=== PATIENT | male | born 1935 | race Caucasian/White ===

== ENCOUNTER 2017-07-17 06:50 | Inpatient (IN) ==
[2017-07-17] MEDS ORDERED: Isovue-370 500 ML INFUS..BTL IV ONE (07:17)
[2017-07-17 07:37] LABS: Basophils # 0.1 K/mcL (0.0-0.2); Basophils % 0.8 %; Eosinophils # 0.4 K/mcL (0.0-0.6); Eosinophils % 4.4 %; Hematocrit 39.3 % (37.5-50.1); Hemoglobin 13.9 g/dL (12.9-16.9); Immature Granulocytes % 0.5 % (0-4); Lymphocytes # 2.3 K/mcL (0.6-4.6); Lymphocytes % 28.7 %; Mean Corpuscular HGB Conc 35.4 g/dL (31.6-35.5); Mean Corpuscular Hemoglobin 30.7 pg (28.0-33.3); Mean Corpuscular Volume 86.8 fL (83.0-100.0); Mean Platelet Volume 10.8 fL (9.4-12.4); Monocytes # 0.6 K/mcL (0.0-1.3); Monocytes % 7.6 %; Neutrophils # 4.6 K/mcL (1.6-8.9); Platelet Count 187 K/mcL (140-400); Red Blood Count 4.53 M/mcL (4.19-5.50); Red Cell Distribution Width 12.3 % (11.5-14.5)
[2017-07-17 07:42] LABS: INR 1.1; Prothrombin Time 11.5 Seconds (9.4-12.1)
[2017-07-17 07:45] LABS: Activated Partial Thrombo Time 31.8 Seconds (26.0-36.0)
[2017-07-17 07:58] LABS: BUN/Creatinine Ratio 28 (6-26); Blood Urea Nitrogen 30 mg/dL (8-23); Calcium 9.2 mg/dL (8.6-10.3); Carbon Dioxide 27 mEq/L (23-29); Chloride 103 mEq/L (98-107); Glucose 104 mg/dL (70-105); Osmolality,Calculated 292 (280-300); Potassium 3.3 mEq/L (3.5-5.1); Sodium 138 mEq/L (136-145); eGFR For African Americans > 60 (> 60); eGFR For Non-African Americans > 60 (> 60)
[2017-07-17 08:50] LABS: Troponin I < 0.03 ng/mL (< 0.04)
--- NOTE | 2017-07-17 09:00 | Emergency Department Note ---
Disposition Clinical Impression: Slurred speech, Weakness, Unsteady gait Disposition: Admitted As Inpatient Condition: Fair Forms: ED Satisfaction Letter Time of Disposition: 10:38 Neuro HPI - General Chief Complaint: ED Neuro Symptoms/Deficit Stated Complaint: stroke like sx (onset 2199 last night) Time Seen by Provider: 07/17/17 07:15 Source: patient, EMS Mode of arrival: EMS Limitations: no limitations Nursing Notes Reviewed: Yes Vital Signs Reviewed: Yes - History of Present Illness HPI Narrative: Patient presents to the emergency room by EMS for evaluation possible strokelike symptoms. Onset of the symptoms would last night at approximate 9 PM. The patient noticed worsening slurred speech and feeling like he was unsteady. Patient did not want to come into the emergency room last night surgical the medical squad. This morning he woke up he fell he slurred speech was better but he still was uncomfortable. Family finally convinced him to come into the emergency room for evaluation. Patient is currently denying any chest pain shortness of breath headache vision changes nausea vomiting or diarrhea denies any recent fevers or chills. Currently he denies any new medications or falls or trauma. Patient is alert is oriented she answers questions appropriately. Patient does have noticeable slurred speech. Patient is not a candidate at this time for pharmacologic intervention for strokelike symptoms. Because of his history of previous stroke that affected similar patient will have CT angiography as well of the head and neck. Patient labs included CBC chemistry troponin and BNP. Type and screen also be added on. Patient does not have any acute findings on stroke evaluation except for slurred speech. NIH is low. Family says he is acting appropriately. Patient will require admission at the workup is completed for further treatment course and evaluation. Aspirin will be given here after the CT scan of the head is unremarkable. Physical exam is stable this time lungs are clear heart is regular. Abdomen is soft. Patient has no signs of cerebellar dysfunction or ataxia based on [id number] testing and [id number] testing. Patient follow commands and is appropriate at this time. Family agrees with my evaluation disposition pending the full treatment course Location: speech History of same: Yes Severity: mild Quality: weakness Improves with: none Worsens with: none Context: sudden onset On Anticoagulants: No Associated symptoms: Reports: denies other symptoms Treatments Prior to Arrival: none - Related Data Home Medications: Home Medications Medication Instructions Recorded Confirmed Ascorbic Acid [Vitamin C] 500 mg PO DAILY 03/09/16 03/09/16 Aspirin 325 mg PO DAILY 03/09/16 03/09/16 Ketoconazole 2% CRM [Nizoral Cream] 1 appl TP BID 03/09/16 03/09/16 Losartan/Hydrochlorothiazide 1 each PO DAILY 03/09/16 03/09/16 [Hyzaar 100-25 Tablet] NIFEdipine [Afeditab Cr] 120 mg PO DAILY 03/09/16 03/09/16 [place]-3/Dha/Epa/Fish Oil [Fish Oil 1,000 mg PO DAILY 03/09/16 03/09/16 1,000 mg Softgel] cloNIDine HCl [CloNIDine HCl] 0.15 mg PO HS 03/09/16 03/09/16 Allergies/Adverse Reactions: Allergies Allergy/AdvReac Type Severity Reaction Status Date / Time sertraline AdvReac Unknown Verified 03/09/16 18:49 All systems ED: reviewed and negative except as stated. Review of Systems: As Per HPI Constitutional: Denies: fever, chills, weakness Eyes: Denies: eye pain Cardiovascular: Denies: chest pain, palpitations, dyspnea on exertion, orthopnea , syncope Respiratory: Denies: cough, dyspnea, wheezes Gastrointestinal: Denies: abdominal pain, nausea, vomiting, diarrhea Genitourinary: Denies: dysuria, frequency Musculoskeletal: Denies: back pain, neck pain Integumentary: Denies: rash Neurological: Denies: headache, weakness Endocrine: Denies: fatigue Past Medical History - Past Medical History Attestation: Yes The following information was validated with the patient. Source: patient, obtained from family Medical history: Reports: cancer, CVA, hypertension, other Surgical history: Reports: no surgical history Psychiatric history: Reports: anxiety, depression - Social History Smoking Status: Never smoker Smokeless Tobacco Status: Yes Alcohol use: Reports: none Drug use: Reports: none Physical Exam - General Limitations: no limitations General appearance: alert, in no apparent distress - Head Head exam: atraumatic - Eye Eye exam: Present: normal appearance, PERRL, EOMI. Absent: miosis, mydriasis - ENT ENT exam: normal exam, normal oropharynx - Neck Neck exam: Present: normal inspection, full ROM, trachea midline. Absent: tenderness, meningismus, lymphadenopathy - Chest Chest inspection: Present: normal inspection, symmetric chest wall rise. Absent : tenderness - Respiratory Respiratory exam: Present: normal lung sounds bilaterally. Absent: respiratory distress, wheezes - Cardiovascular Cardiovascular exam: Present: regular rate, normal rhythm, normal heart sounds. Absent: bradycardia, tachycardia - Abdominal Exam Abdominal exam: Present: soft, Non-Tender. Absent: tenderness, distention, guarding, rebound, rigidity, normal bowel sounds, Jimenez's sign, Rovsing's sign , tenderness at McBurney's Point - Extremities Exam Extremities exam: Present: normal inspection - Back Exam Back exam: Present: normal inspection, full ROM. Absent: tenderness - Neurological Exam Neurological exam: Present: alert, oriented X3, CN II-XII intact - Skin Skin exam: Present: warm, dry, intact, normal color Course Course Narrative: Patient seen and examined the time of arrival. See history of present illness. Patient presents emergency room for complaint of slurred speech and some difficulty with walking. He said this happened in the past of previous stroke. Patient had some slight residual symptoms that were left over in the past. Patient denies any trauma or injury. Symptom onset was last night approximately 9 PM. He decided not to come out to the emergency room will undergo bedside regarding better. Patient's currently denying chest pain shortness of breath headache vision changes nausea vomiting or diarrhea. No fevers or chills. No recent medication changes. No other acute new issues at this time. On my initial evaluation patient sitting upright in the bed. He does have audible slurred speech to this time. He does not have any facial asymmetry. His pupils are equal round reactive his intraocular muscles are intact. He has normal cranial nerve function 3 through 12 with no acute asymmetry noted. He has normal strength in the upper and lower extremities is symmetrical in flexion extension and shoulder shrug as well as extension and lifting of the legs bilaterally. Cerebellar function appears to be stable. There is slight dysmetria in the left upper extremity with the patient does miss his nose finger to nose testing. Timeframe was not consistent with acute stroke does not meet the patient candidate for TPA at this time. Patient will have CT imaging with plain film as well as CT angiography of the head and neck completed this time. Detailed lab workup including CBC chemistry coagulation studies urinalysis chest x-ray will be completed as well as for infectious etiology or other sources to the presenting symptoms here today. Patient's NIH stroke scale is a 2 at this time. Vital signs remain stable. Patient will have detailed workup completed here and then expect admission process to be established. No other acute findings on this time. Patient is otherwise clinically stable. - Reevaluation(s) Reevaluation #1: Unremarkable this point. Patient is resting comfortably in the bed. Repeat evaluation shows no acute changes. CT of the head and CT angiography of the head and neck are unremarkable this time for any vascular related issue or bleed. Patient will be given aspirin here in the emergency room. Hospitals will be paged for admission process. Patient was discussed with the hospitalist Dr. black. We reviewed the presentation the symptoms medical intervention in the previous history of this patient this time. She understands is comfortable with the plan. No other recommendations at this point. Patient will be admitted for definitive management. Patient is otherwise clinically stable. Medication list will be added into the chart at this time. Time: 10:49 Vital Signs Temperature 97.9 F 07/17/17 06:52 Pulse Rate 66 07/17/17 06:52 Respiratory Rate 18 07/17/17 06:52 Blood Pressure 157/114 07/17/17 06:52 O2 Sat by Pulse Oximetry 99 07/17/17 06:52 Temperature 97.9 F 07/17/17 07:31 Pulse Rate 56 07/17/17 10:03 Respiratory Rate 11 07/17/17 10:03 Blood Pressure 150/96 07/17/17 10:03 O2 Sat by Pulse Oximetry 95 07/17/17 10:03 Oxygen Delivery Oxygen Delivery Room Air Neuro Symptoms/Deficit - MDM Narrative Medical decision making narrative: Slurred speech, weakness - Medical Records Medical records reviewed: Yes I reviewed the patient's medical records. - Lab Data Lab results reviewed: Yes I reviewed the patient's lab results. Result diagrams: 07/17/17 07:16 07/17/17 07:16 Lab Results 07/17/17 07/17/17 07/17/17 Range/Units 07:12 07:16 07:16 WBC 7.9 (4.3-11.1) K/mcL RBC 4.53 (4.19-5.50) M/mcL Hgb 13.9 (12.9-16.9) g/dL Hct 39.3 (37.5-50.1) % MCV 86.8 (83.0-100.0) fL MCH 30.7 (28.0-33.3) pg MCHC 35.4 (31.6-35.5) g/dL RDW 12.3 (11.5-14.5) % Plt Count 187 (140-400) K/mcL MPV 10.8 (9.4-12.4) fL Immature Gran % 0.5 (0-4) % Seg Neutrophils % 58.0 % Lymphocytes % 28.7 % Monocytes % 7.6 % Eosinophils % 4.4 % Basophils % 0.8 % Neutrophils # 4.6 (1.6-8.9) K/mcL Lymphocytes # 2.3 (0.6-4.6) K/mcL Monocytes # 0.6 (0.0-1.3) K/mcL Eosinophils # 0.4 (0.0-0.6) K/mcL Basophils # 0.1 (0.0-0.2) K/mcL PT 11.5 (9.4-12.1) Seconds INR 1.1 APTT 31.8 (26.0-36.0) Seconds Sodium (136-145) mEq/L Potassium (3.5-5.1) mEq/L Chloride (98-107) mEq/L Carbon Dioxide (23-29) mEq/L BUN (8-23) mg/dL Creatinine (0.70-1.30) mg/dL Est GFR ( Amer) (> 60) Est GFR (Non-Af Amer) (> 60) BUN/Creatinine Ratio (6-26) Glucose (70-105) mg/dL POC Glucose 105 H (70-99) mg/dL Calculated Osmolality (280-300) Calcium (8.6-10.3) mg/dL Troponin I (< 0.04) ng/mL Urine Color (Yellow) Urine Clarity (Clear) Urine pH (5.0-8.0) pH Units Ur Specific [place] (1.010-1.025) Urine Protein (Neg-Trace) mg/dL Urine Glucose (UA) (Normal) mg/dL Urine Ketones (Negative) mg/dL Urine Blood (Negative) Urine Nitrite (Negative) Urine Bilirubin (Negative) Urine Urobilinogen (Normal) mg/dL Ur Leukocyte Esterase (Negative) Urine Microscopic RBC (0-3) per hpf Urine Microscopic WBC (0-3) per hpf Ur Squamous Epith Cells (None-Few) per lpf Urine Bacteria (None-Few) per hpf Hyaline Casts (None-Few) per lpf Ur Culture Indicated? (NO) 07/17/17 07/17/17 07/17/17 Range/Units 07:16 07:52 09:12 WBC (4.3-11.1) K/mcL RBC (4.19-5.50) M/mcL Hgb (12.9-16.9) g/dL Hct (37.5-50.1) % MCV (83.0-100.0) fL MCH (28.0-33.3) pg MCHC (31.6-35.5) g/dL RDW (11.5-14.5) % Plt Count (140-400) K/mcL MPV (9.4-12.4) fL Immature Gran % (0-4) % Seg Neutrophils % % Lymphocytes % % Monocytes % % Eosinophils % % Basophils % % Neutrophils # (1.6-8.9) K/mcL Lymphocytes # (0.6-4.6) K/mcL Monocytes # (0.0-1.3) K/mcL Eosinophils # (0.0-0.6) K/mcL Basophils # (0.0-0.2) K/mcL PT (9.4-12.1) Seconds INR APTT (26.0-36.0) Seconds Sodium 138 (136-145) mEq/L Potassium 3.3 L (3.5-5.1) mEq/L Chloride 103 (98-107) mEq/L Carbon Dioxide 27 (23-29) mEq/L BUN 30 H (8-23) mg/dL Creatinine 1.08 (0.70-1.30) mg/dL Est GFR ( Amer) > 60 (> 60) Est GFR (Non-Af Amer) > 60 (> 60) BUN/Creatinine Ratio 28 H (6-26) Glucose 104 (70-105) mg/dL POC Glucose 104 H (70-99) mg/dL Calculated Osmolality 292 (280-300) Calcium 9.2 (8.6-10.3) mg/dL Troponin I < 0.03 (< 0.04) ng/mL Urine Color Yellow (Yellow) Urine Clarity Clear (Clear) Urine pH 7.0 (5.0-8.0) pH Units Ur Specific [place] 1.025 (1.010-1.025) Urine Protein Trace (Neg-Trace) mg/dL Urine Glucose (UA) Normal (Normal) mg/dL Urine Ketones Negative (Negative) mg/dL Urine Blood Negative (Negative) Urine Nitrite Negative (Negative) Urine Bilirubin Negative (Negative) Urine Urobilinogen Normal (Normal) mg/dL Ur Leukocyte Esterase Negative (Negative) Urine Microscopic RBC 0-3 (0-3) per hpf Urine Microscopic WBC 0-3 (0-3) per hpf Ur Squamous Epith Cells None Seen (None-Few) per lpf Urine Bacteria None Seen (None-Few) per hpf Hyaline Casts None Seen (None-Few) per lpf Ur Culture Indicated? NO (NO) - Radiology Data Radiology results reviewed: Yes I reviewed the patient's radiology results. CT imaging of the head is unremarkable this time. Chest x-ray is stable. No acute pathology. - EKG Data EKG attestation: Yes I reviewed and interpreted this EKG. EKG results narrative: EKG shows sinus rhythm. Ventricular rate of 67. NV interval 166. QRS duration of 100. QTC of 436. [place] appears to be normal. No acute signs of WPW Brugada syndrome atrial fibrillation or myocardial infarction at this time. Compared to EKG on 03/09/16 NIH Stroke Scale - Level of Consciousness LOC: Alert - LOC Questions LOC Questions: Answers both correctly - LOC Commands LOC Commands: Performs both correctly - Best Gaze Best Gaze: Normal - Visual Visual: No visual loss - Facial Palsy Facial Palsy: Normal - Motor Arms Motor Arm-Left: No drift for 10 seconds Motor Arm-Right: No drift for 10 seconds - Motor Legs Motor Leg-Left: No drift for 5 seconds Motor Leg-Right: No drift for 5 seconds - Limb Ataxia Limb Ataxia: Present in ONE limb - Sensory Sensory: Normal - Best Language Best Language: No aphasia - Dysarthria Dysarthria: Mild, slurs some words - Extinction and Inattention Extinction and Inattention: Normal - NIHSS Total Score NIHSS Total Score: 2 TPA Checklist - LKW: 3-4.5 hrs Add. Warnings/Precautions Patient/family understanding: The patient/family members have been counseled and understood the risk, benefit , and alternatives of treatment.
[2017-07-17 09:22] LABS: Bilirubin,Urine Negative (Negative); Blood,Urine Negative (Negative); Clarity,Urine Clear (Clear); Color,Urine Yellow (Yellow); Glucose,Urine (UA) Normal (Normal); Ketones,Urine Negative (Negative); Leukocyte Esterase,Urine Negative (Negative); Nitrite,Urine Negative (Negative); Protein,Urine Trace mg/dL (Neg-Trace); Specific Gravity,Urine 1.025 (1.010-1.025); Urobilinogen,Urine Normal (Normal)
[2017-07-17 09:25] LABS: Bacteria,Urine None Seen per hpf (None-Few); Hyaline Casts,Urine None Seen per lpf (None-Few); RBC,Urine 0-3 per hpf (0-3); Squamous Epithelial Cell,Urine None Seen per lpf (None-Few); WBC,Urine 0-3 per hpf (0-3)
[2017-07-17] MEDS: 0.9 % Sodium Chloride 1,000 ML IVC SCH ×2 (09:44→17:37)
[2017-07-17] MEDS ORDERED: Aspirin 81 MG TAB.CHEW PO STA (10:30)
[2017-07-17] MEDS ORDERED: Naloxone 0.4 MG/ML INJ IVP PRN (11:20)
[2017-07-17] MEDS ORDERED: Potassium Chloride 20 MEQ, Lidocaine 1% 2 ML in D5% in Water 250 ML IVPB ONE (11:25)
[2017-07-17] MEDS ORDERED: Gadolinium Contrast Agent (WT Based) IV PRN (11:26)
--- NOTE | 2017-07-17 12:14 | Internal Med History&Physical ---
Date of Encounter: 07/17/17 Time of Encounter: 10:45 Internal Medicine - H&P: HPI Chief complaint: slurred speech Admitted From: Home Plans for Post Hospital Care: Home History of present illness: Mr. Evans is a 81 year old male with PMH Of HTN, CVA, brain aneurysm s/p surgery who presents to the ER for evaluation of slurred speech. Pt seen and examined with family present at bedside. Pt reports of having an acute onset of slurred speech last night however refused to come to the ER then, his symptoms persisted which prompted his visit to the ER today. He states he has had difficulty walking from his previous CVA and uses a walker, however his speech is clear but slow at baseline. At this time, he is able to converse, has occasional stuttering but is close to his baseline, as per the patient and family. He also reports of having difficulty with thin liquids and CTA neck reported mild esophagus wall thickening. He denies any dysphagia to solids. Denies any headache, dizziness, chest pain, sob, vision changes, abd pain, n/v, fever, or chills. Past Med Surg Social Fam HX - Past Medical History Medical history: cancer, CVA, hypertension, other Psychiatric history: anxiety, depression - Past Surgical History Surgical History: no surgical history - Social History Smoking Status: Never smoker Smokeless Tobacco Status: Yes Alcohol use: none Drug use: none - Family History Brother Hx Family Cardiac Disorders: Yes Father Living Status: Hx Family Cancer: Yes (colon) Mother Living Status: Internal Medicine - H&P: Meds Ascorbic Acid [Vitamin C] 500 mg PO DAILY 03/09/16 [History] Aspirin 325 mg PO DAILY 03/09/16 [History] Losartan/Hydrochlorothiazide [Hyzaar 100-25 Tablet] 1 each PO DAILY 03/09/16 [ History] NIFEdipine [Afeditab Cr] 120 mg PO DAILY 03/09/16 [History] cloNIDine HCl [CloNIDine HCl] 0.15 mg PO HS 03/09/16 [History] Atorvastatin [Lipitor] 10 mg PO HS 07/17/17 [History] Tamsulosin [Flomax] 0.4 mg PO DAILY 07/17/17 [History] 3 Allergy/AdvReac Type Severity Reaction Status Date / Time sertraline AdvReac Unknown Verified 03/09/16 18:49 All Systems PM: A 10-system review of systems was performed and is negative for pertinent findings except as documented above in the HPI. - Constitutional Constitutional: as per HPI, no falls - Constitutional Vitals: Temp Pulse Resp BP Pulse Ox 97.9 F 66 14 166/109 99 07/17/17 07:31 07/17/17 11:10 07/17/17 11:10 07/17/17 11:10 07/17/17 11:10 General appearance: Present: cooperative, A&O X 3, pleasant, no acute distress, answers questions appropriately - Head Head exam: Present: atraumatic, normocephalic - Eye Eye exam: Present: EOMI, normal appearance. Absent: nystagmus - Respiratory Respiratory exam: Present: CTAB. Absent: accessory muscle use, rales, rhonchi, wheezes - Cardiovascular Cardiovascular exam: Present: RRR, +S1, +S2. Absent: diastolic murmur, gallop, rubs, systolic murmur - GI/Abdominal GI/Abdominal exam: Present: normal bowel sounds, soft, no peritoneal signs. Absent: distended, tenderness - Extremities Exam Extremities exam: Present: warm, radial pulses palpable and symmetrical. Absent : calf tenderness, pedal edema - Neurological Exam Neurological exam: Present: alert, oriented X3, strengths equal and symetr throughout, speech deficit. 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 Sequelae of prior infarcts within the cerebellar hemispheres bilaterally. Mild narrowing of the left TRAY DELIVERY AIDE. mild esophageal wall thickening. Neurology consult requested with Dr. Cifuentes continue ASA, Statin BP control f/u 2D echo, carotid dopplers PT/OT speech therapy evaluation tele monitoring will continue to closely monitor fall precautions Qualifiers: CVA mechanism: unspecified Qualified Code(s): I63.9 - Cerebral infarction, unspecified (2) Hypokalemia Current Visit: Yes Status: Acute Assessment and plan: K supplemented continue to monitor electrolytes and replace as needed (3) Hypertension Current Visit: No Status: Chronic Assessment and plan: Reports of not taking his home medications prior to his hospitalization will resume home meds Hydralazine 10mg IV q6h PRN SBP>160 goal BP<150/90 closely monitor BP Qualifiers: Hypertension type: essential hypertension Qualified Code(s): I10 - Essential (primary) hypertension (4) Dysphagia Current Visit: Yes Status: Acute Assessment and plan: dysphagia to liquids follow up speech therapy evaluation consider GI evaluation for endoscopy Qualifiers: Dysphagia type: unspecified Qualified Code(s): R13.10 - Dysphagia, unspecified (5) DVT prophylaxis Current Visit: Yes Status: Acute Assessment and plan: heparin SQ - Time Spent With Patient Total time spent is greater than 50% in coordination of care (as documented) at patient's floor/unit and/or counseling patient:
[2017-07-17] MEDS: Losartan/HCTZ 50-12.5 TABLET PO SCH (12:15)
[2017-07-17] MEDS: NIFEdipine XL (24 HR) 60 MG TAB.ER.24 PO SCH (12:15)
--- NOTE | 2017-07-17 16:50 | Neurology - Consult Note ---
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 Baseline function unknown and current neurological examination showed left hemiparesis consistent with previous SDH injury. To rule out new ischemic infarct an MRI of brain without contrast is needed which is already ordered. Keep on Aspirin 325mg for now and if MRI of brain returns positive for new infarct then may add on Plavix continue statin therapy. Risk factor reduction modification. PT and speech evaluation. patient has quite significant intracranial atherosclerosis evidenced on CTA of brain these are not intervenable and would have to go medical treatment route. Already had CTA of neck will need TTE to complete work up. Qualifiers: CVA mechanism: unspecified Qualified Code(s): I63.9 - Cerebral infarction, unspecified History of Present Illness Chief complaint: slurred speech HPI: Mr. Evans is a 81 year old male with PMH significant for HTN, CVA, brain aneurysm s/p surgery who presented to the ER here at [facility]. Patient is a poor historian due to speech difficulty and likely he also has cognitive impairment due to history of craniotomy and brain bleed. He denies any specific discomforts. He tried to explain things but it usually ended up telling what made him going to [facility]. He is unable to tell me what happened yesterday. per medical records, he was found to have slurred speech, which can still be recognized now. He seems to have hemiparesis to the left arm and leg but he denies acute weakness now. Medical records from [facility] showed that the patient had prostate cancer s/p radiotherapy, SDH in 02/2016 s/p craniotomy, and then he had acute ischemic stroke during 09/2017 where he was treated at [facility] and an MRI of brain showed acute small infarct at the left douglas radiata, which correlate with reported slurry speech and gait imbalance. This time apparently the slurred speech occurred again and family members were worried. Symptoms have persisted more than 24 hours without improvement therefore he was brought to ER for further evaluation. Ct of head showed no acute changes but has lots of small vessel ischemic changes as well as old infarcts. CTA of neck and brain were reported negative for major vessel stenosis or aneurysm. IMPRESSION: CT HEAD: 1. No acute intracranial abnormality. 2. Global parenchymal volume loss with chronic microvascular ischemic change. 3. Sequelae of prior infarcts within the cerebellar hemispheres bilaterally. CTA HEAD/NECK: 1. No flow limiting stenosis seen of the cervical carotid or vertebral arteries. 2. 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 This is most severely involving the MCAs bilaterally. 3. Mild narrowing of the left posterior communicating artery. 4. A somewhat patulous appearance of the esophagus with question of mild wall thickening. Consider correlation with endoscopy. Past Med Surg Social Fam HX - Past Medical History Medical history: cancer, CVA, hypertension, other Psychiatric history: anxiety, depression - Past Surgical History Surgical History: no surgical history - Social History Smoking Status: Never smoker Smokeless Tobacco Status: Yes Alcohol use: none Drug use: none - Family History Brother Hx Family Cardiac Disorders: Yes Father Living Status: Hx Family Cancer: Yes (colon) Mother Living Status: Medications and Allergies Ascorbic Acid [Vitamin C] 500 mg PO DAILY 03/09/16 [History] Aspirin 325 mg PO DAILY 03/09/16 [History] Losartan/Hydrochlorothiazide [Hyzaar 100-25 Tablet] 1 each PO DAILY 03/09/16 [ History] NIFEdipine [Afeditab Cr] 120 mg PO DAILY 03/09/16 [History] cloNIDine HCl [CloNIDine HCl] 0.15 mg PO HS 03/09/16 [History] Atorvastatin [Lipitor] 10 mg PO HS 07/17/17 [History] Tamsulosin [Flomax] 0.4 mg PO DAILY 07/17/17 [History] 3 Allergy/AdvReac Type Severity Reaction Status Date / Time sertraline AdvReac Unknown Verified 03/09/16 18:49 All Systems: The remainder of the systems were reviewed and are negative Physical Examination - Vital Signs Vital Signs: Initial Vital Signs Temp Pulse Resp BP Pulse Ox 97.9 F 66 18 157/114 99 07/17/17 06:52 07/17/17 06:52 07/17/17 06:52 07/17/17 06:52 07/17/17 06:52 - Constitutional General appearance: comfortable, chronically ill - Neurologic Sensorimotor examination: other (Grossly intact) Motor examination - right side: 5/5: deltoids, biceps, triceps, wrist flexion, wrist extension, aircraft instrument tester, hip flexors, tibialis Anterior, quadriceps, toe extension (EHL), plantarflexion Motor examination - left side: 4/5: deltoids, biceps, triceps, wrist flexion, wrist extension, hip flexors, aircraft instrument tester, quadriceps, tibialis Anterior, toe extension (EHL), plantarflexion Detailed sensory examination: other (Grossly intact) Posture: other (None) Reflexes: Biceps: 1+, Triceps: 1+, Brachioradialis: 1+, Patella: 1+, Achilles: 1 + Mental Status Examination: awake, alert, oriented to person, oriented to place, oriented to time, follows commands appropriately, answers questions appropriately, no agnosia, no aphasia (Patient is still dysphasic, he is able to repeat with errors. Speech appear partially fluent but rampent and easily digressing), no aproxia, opens eyes to voice, makes eye contact, follows simple commands, expressive aphasia (Speech difficult to characterize and has both receptive and expressive component. unable to repeat fully), impaired memory, impaired cognition Cranial nerve examination: PERRL, EOMI, visual santa intact, corneal reflexes brisk symmetrically, sensory to face intact, mastication intact, no facial asymmetry is present, no dysarthria (Dysarthric with dysphasic component), hearing is intact symmetrically, soft palate elevates bilaterally upon phonation , gag reflex intact, flexes SCM and trapezius muscles symmetrically with full power, tongue protrudes midline, no atrophy or facial fasiculations present Cerebellar examination: no truncal ataxia (Gait not assessed), no difficulty with rapid alternating movements (Loss of dexterity bilaterally), dysarthria ( yes) Results - Laboratory Findings CBC and BMP: 07/17/17 07:16 07/17/17 07:16 Abnormal lab findings: Abnormal lab results Potassium 3.3 mEq/L (3.5-5.1) L 07/17/17 07:16 BUN 30 mg/dL (8-23) H 07/17/17 07:16 BUN/Creatinine Ratio 28 (6-26) H 07/17/17 07:16 POC Glucose 104 mg/dL (70-99) H 07/17/17 07:52 - Diagnostic Findings Additional findings: EXAMINATION: CTA OF THE HEAD WITHOUT AND WITH CONTRAST; CTA OF THE NECK; CT OF THE HEAD WITHOUT CONTRAST 07/17/2017 9:17 am: TECHNIQUE: CTA of the head/brain was performed without and with the administration of intravenous contrast. Multiplanar reformatted images are provided for review. MIP images are provided for review. Dose modulation, iterative reconstruction, and/or weight based adjustment of the mA/kV was utilized to reduce the radiation dose to as low as reasonably achievable.; CTA of the neck was performed with the administration of intravenous contrast. Multiplanar reformatted images are provided for review. MIP images are provided for review. Stenosis of the internal carotid arteries measured using NASCET criteria. Dose modulation, iterative reconstruction, and/or weight based adjustment of the mA/kV was utilized to reduce the radiation dose to as low as reasonably achievable.; CT of the head was performed without the administration of intravenous contrast. Dose modulation, iterative reconstruction, and/or weight based adjustment of the mA/kV was utilized to reduce the radiation dose to as low as reasonably achievable. Noncontrast CT of the head with reconstructed 2-D images are also provided for review. COMPARISON: Noncontrast CT head 03/09/2016. HISTORY: 1 day history of slurred speech. Initial evaluation. FINDINGS: CT HEAD: BRAIN/VENTRICLES: No acute intracranial hemorrhage or extraaxial fluid collection. Pereyra-white differentiation is maintained. No evidence of mass, mass effect or midline shift. No evidence of hydrocephalus. There are areas of hypoattenuation in the periventricular and subcortical white matter, which is nonspecific, but may represent chronic microvasvular ischemic change. There is prominence of the ventricles and sulci due to global parenchymal volume loss. Sequelae of prior infarcts within the cerebellar hemispheres bilaterally. ORBITS: The visualized portion of the orbits demonstrate no acute abnormality. SINUSES: The visualized paranasal sinuses and mastoid air cells demonstrate no acute abnormality. SOFT TISSUES/SKULL: No acute abnormality of the visualized skull or soft tissues. CTA NECK: AORTIC ARCH/ARCH VESSELS: There is a normal 3 vessel arch configuration. Atherosclerosis of the aortic arch and arch vessels. No convincing flow limiting stenosis of the innominate or subclavian arteries. CAROTID ARTERIES: No flow limiting stenosis seen of the common carotid arteries. Atherosclerosis involving the carotid bulbs and proximal internal carotid arteries bilaterally, right greater than left. VERTEBRAL ARTERIES: The vertebral arteries both arise from the subclavian arteries. There is no evidence of a flow limiting stenosis of either vertebral artery. SOFT TISSUES: Mild dependent changes are seen within the lungs bilaterally. There is a somewhat patulous appearing esophagus there is question of mild wall thickening of the esophagus. BONES: No acute osseous abnormality. CTA HEAD: ANTERIOR CIRCULATION: No focal stenosis seen of the internal carotid arteries bilaterally. An azygos A2 segment is noted. This is a normal variant. Multiple mild stenoses are seen of the A2 segment. Severe focal stenosis is seen involving the right M1 segment. There is moderate to severe focal stenosis of the left distal M1 segment. Mild scattered stenoses within the more distal branches of the MCA bilaterally. POSTERIOR CIRCULATION: There is a diminutive appearance of the basilar and vertebral arteries. The posterior cerebral arteries are predominant supplied via posterior communicating arteries, which is a normal variant. There is mild narrowing of the left posterior communicating artery. A convincing focal stenosis of the posterior cerebral arteries. No intracranial aneurysm identified. CT/CT angio head IMPRESSION: CT HEAD: 1. No acute intracranial abnormality. 2. Global parenchymal volume loss with chronic microvascular ischemic change. 3. Sequelae of prior infarcts within the cerebellar hemispheres bilaterally. CTA HEAD/NECK: 1. No flow limiting stenosis seen of the cervical carotid or vertebral arteries. 2. 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 This is most severely involving the MCAs bilaterally. 3. Mild narrowing of the left posterior communicating artery. 4. A somewhat patulous appearance of the esophagus with question of mild wall thickening. Consider correlation with endoscopy. Consult Discharge Plan - Plan [facility]errals: [facility] [Primary Care Provider] -
--- NOTE | 2017-07-17 17:00 | Electrocardiograph Report ---
[place] [id number] Test Date: 2017-07-17 Pat Name: Delvis Evans Department: 102 Room: [place] Gender: M Cinder Man: Kimberly : 1935 Requested By: Kate Sofia Order Number: [id number] Reading MD: Alondra Charlton Measurements Intervals [place] Rate: 67 P: 31 [place]: 166 QRS: 37 QRSD: 100 T: 28 QT: 421 QTc: 436 Interpretive Statements SINUS RHYTHM NONSPECIFIC ST-WAVE ABNORMALITY Electronically Signed On 07-17-2017 16:59:33 EDT by Alondra Charlton
[2017-07-17] MEDS: *HR* Heparin 5,000 UNIT/ML VIAL SQ SCH (17:37)
[2017-07-17] MEDS: cloNIDine HCl 0.1 MG TABLET PO SCH (20:34)
[2017-07-18] MEDS: *HR* Heparin 5,000 UNIT/ML VIAL SQ SCH ×2 (06:04→18:51)
[2017-07-18 06:29] LABS: Basophils # 0.1 K/mcL (0.0-0.2); Eosinophils # 0.3 K/mcL (0.0-0.6); Eosinophils % 5.1 %; Immature Granulocytes % 0.1 % (0-4); Lymphocytes # 1.9 K/mcL (0.6-4.6); Lymphocytes % 27.9 %; Mean Corpuscular HGB Conc 34.1 g/dL (31.6-35.5); Mean Corpuscular Hemoglobin 29.6 pg (28.0-33.3); Mean Platelet Volume 10.7 fL (9.4-12.4); Monocytes # 0.6 K/mcL (0.0-1.3); Monocytes % 8.2 %; Neutrophils # 3.9 K/mcL (1.6-8.9); Platelet Count 197 K/mcL (140-400); Red Blood Count 5.06 M/mcL (4.19-5.50); Red Cell Distribution Width 12.6 % (11.5-14.5); Segmented Neutrophils % 57.7 %
[2017-07-18 06:46] LABS: BUN/Creatinine Ratio 21 (6-26); Blood Urea Nitrogen 20 mg/dL (8-23); Calcium 9.4 mg/dL (8.6-10.3); Carbon Dioxide 28 mEq/L (23-29); Chloride 104 mEq/L (98-107); Chol/HDL Ratio 4.4 (0-4.9); Cholesterol 205 mg/dL (< 200); Glucose 95 mg/dL (70-105); HDL Cholesterol 47 mg/dL (40-59); LDL Cholesterol,Calculated 131 mg/dL (0-99); Osmolality,Calculated 292 (280-300); Phosphorous 2.3 mg/dL (2.7-4.5); Potassium 3.3 mEq/L (3.5-5.1); Sodium 140 mEq/L (136-145); Triglycerides 137 mg/dL (< 150); eGFR For African Americans > 60 (> 60); eGFR For Non-African Americans > 60 (> 60)
[2017-07-18] MEDS: 0.9 % Sodium Chloride 1,000 ML IVC SCH ×2 (07:14→20:44)
[2017-07-18] MEDS: NIFEdipine XL (24 HR) 60 MG TAB.ER.24 PO SCH (07:52)
[2017-07-18] MEDS: Ascorbic Acid 500 MG TABLET PO SCH (07:52)
[2017-07-18] MEDS: Losartan/HCTZ 50-12.5 TABLET PO SCH (07:52)
[2017-07-18] MEDS ORDERED: Aspirin 325 MG TABLET PO SCH (09:00)
--- NOTE | 2017-07-18 16:47 | Neurology Progress Note ---
Date of Encounter: 07/18/17 Time of Encounter: 16:44 Assessment and Plan (1) CVA (cerebral vascular accident) Current Visit: Yes Status: Acute 81 year old man with previous SDH ( spontaneous without head trauma per medical history) s/p craniotomy 02/2016, ischemic infarct at the left [place] [employer] 2016 who developed acute onset of slurry speech and left hemiparesis this time, had MRI of brain confirmed few lacunar infarct within the right MCA territory. Likely related to intracranial atherosclerosis. He has failed aspirin therefore will change antiplatelet therapy to plavix 75mg daily. He has history of spontaneous SDH in so i would avoid dual antiplatelet therapy. Risk factor reduction recommended. PT. Will sign off at this time. Please call if any questions Qualifiers: CVA mechanism: unspecified Qualified Code(s): I63.9 - Cerebral infarction, unspecified Subjective Principal diagnosis: CVA Interval history: Patient seen and examined. He is feeling fine, still has dysarthria and can recognize slight weakness to the left arm and facial droop. MRI of brain completed and showed few lacunar infarct at the right frontal and temporal lobe, within the right MCA territory. Echocardiography showed normal LVEF no regional wall motion abnormality, no PFO, and valcular disease. CTA of neck showed no critical ICA stenosis but significant atherosclerotic changes within MCA. Objective - Constitutional Vitals: Temp Pulse Resp BP Pulse Ox 98.0 F 67 14 159/84 98 07/18/17 15:43 07/18/17 15:43 07/18/17 15:43 07/18/17 15:43 07/18/17 15:43 - Neurological Exam Sensorimotor examination: Present: other (Grossly intact) Motor examination - right side: 5/5: deltoids, biceps, triceps, wrist flexion, wrist extension, battery service technician, hip flexors, tibialis Anterior, quadriceps, toe extension (EHL), plantarflexion Motor examination - left side: 4/5: deltoids, biceps, triceps, wrist flexion, wrist extension, hip flexors, battery service technician, quadriceps, tibialis Anterior, toe extension (EHL), plantarflexion Sensation intact: Present: other (Grossly intact) Posture: Present: other (None) Reflexes: Biceps: 1+, Triceps: 1+, Brachioradialis: 1+, Patella: 1+, Achilles: 1 + Mental Status Examination: Present: awake, alert, oriented to person, oriented to place, oriented to time, follows commands appropriately, answers questions appropriately, no agnosia, no aphasia (Patient is still dysphasic, he is able to repeat with errors. Speech appear partially fluent but rampent and easily digressing), no aproxia, opens eyes to voice, makes eye contact, follows simple commands, expressive aphasia (improved) Cranial nerve examination: Present: PERRL, EOMI, visual santa intact, corneal reflexes brisk symmetrically, sensory to face intact, mastication intact, no facial asymmetry is present (Mild left facial droop noted), no dysarthria ( Dysarthric with dysphasic component), hearing is intact symmetrically, soft palate elevates bilaterally upon phonation, gag reflex intact, flexes SCM and trapezius muscles symmetrically with full power, tongue protrudes midline, no atrophy or facial fasiculations present Cerebellar examination: Present: no truncal ataxia (Gait not assessed), no difficulty with rapid alternating movements (Loss of dexterity bilaterally), dysarthria (yes) Results - Laboratory Findings CBC and BMP: 07/18/17 04:00 07/18/17 04:00 Abnormal lab findings: Abnormal lab results Potassium 3.3 mEq/L (3.5-5.1) L 07/18/17 04:00 Phosphorus 2.3 mg/dL (2.7-4.5) L 07/18/17 04:00 Cholesterol 205 mg/dL (< 200) H 07/18/17 04:00 LDL Cholesterol, Calc 131 mg/dL (0-99) H 07/18/17 04:00 Consult Discharge Plan - Plan [facility]errals: [facility] [Primary Care Provider[facility] -
--- NOTE | 2017-07-18 19:13 | Internal Med Progress Note ---
Date of Encounter: 07/18/17 Time of Encounter: 10:05 - Assessment and plan (1) Hypertension Current Visit: Yes Status: Chronic Assessment and plan: Chronic. Resume home medications. Pt with mild HTN. Continue to monitor labs Hydralazine 10mg IV q6h prn SBP > 160. Qualifiers: Hypertension type: essential hypertension Qualified Code(s): I10 - Essential (primary) hypertension (2) CVA (cerebral vascular accident) Current Visit: Yes Status: Acute Assessment and plan: Patient sent from home after dysarthria noted. Patient has prior history of CVA and craniotomy in 2017. Patient with residual deficits from prior CVA, right-sided weakness. Head CT negative for intracranial abnormality. CTA of head and neck showed multiple stenoses involving anterior circulation, most severely MCAs bilaterally. Is mild narrowing of the left posterior communicating artery. Brain MRI showed acute lacunar infarcts within the right frontal lobe and right temporal lobe. Patient had modified barium swallow by speech therapy is evidence of aspiration of thin barium and nectar thick liquid ingesting a large bolus, mild to moderate amount of vallecular and piriform sinus residual, no evidence of penetration of aspiration of pureed consistency or honey thick liquid. Echocardiogram shows LVEF of 6065%, mild LV DD, mild MR, no evidence of PFO, all wall segments showed normal motion. PT has recommended patient have physical therapy at SNF. Patient is amenable. Head CTA 07/17/17 07:17 IMPRESSION: CT HEAD: 1. No acute intracranial abnormality. 2. Global parenchymal volume loss with chronic microvascular ischemic change. 3. Sequelae of prior infarcts within the cerebellar hemispheres bilaterally. CTA HEAD/NECK: 1. No flow limiting stenosis seen of the cervical carotid or vertebral arteries. 2. 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 This is most severely involving the MCAs bilaterally. 3. Mild narrowing of the left posterior communicating artery. 4. A somewhat patulous appearance of the esophagus with question of mild wall thickening. Consider correlation with endoscopy. D/ / Donny Bermudez MD / Donny Bermudez MD Interpreting Provider: Donny Bermudez MD Neck CTA 07/17/17 07:17 IMPRESSION: CT HEAD: 1. No acute intracranial abnormality. 2. Global parenchymal volume loss with chronic microvascular ischemic change. 3. Sequelae of prior infarcts within the cerebellar hemispheres bilaterally. CTA HEAD/NECK: 1. No flow limiting stenosis seen of the cervical carotid or vertebral arteries. 2. 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 This is most severely involving the MCAs bilaterally. 3. Mild narrowing of the left posterior communicating artery. 4. A somewhat patulous appearance of the esophagus with question of mild wall thickening. Consider correlation with endoscopy. D/ / Donny Bermudez MD / Donny Bermudez MD Interpreting Provider: Donny Bermudez MD Echocardiogram 07/17/17 11:23 Impressions: LVEF 60-65%. Normal LV chamber size, wall thickness and function. Mild left ventricular diastolic dysfunction. Normal right ventricular structure and function. Mild mitral regurgitation. Borderline mild pulmonary hypertension. Estimated RVSP is 36 mmHg. No evidence of PFO with agitated saline contrast. Left Ventricular Wall Motion: Rest Echo Findings All wall segments showed normal motion. Findings: Study Quality * Technically adequate exam. ECG Findings * Normal sinus rhythm. Left Ventricle * LVEF 60-65%. * Normal LV chamber size, wall thickness and function. * Mild left ventricular diastolic dysfunction. Right Ventricle * Normal right ventricular structure and function. Right Atrium * Mildly dilated right atrium. Left Atrium * Moderately dilated left atrium. Aortic Valve * Aortic valve not well visualized. * No aortic regurgitation. * No aortic stenosis. Mitral Valve * Mildly calcified mitral valve leaflets. * Mild mitral regurgitation. * No mitral stenosis. Tricuspid Valve * Normal tricuspid valve structure and function. * Trace tricuspid regurgitation. * Borderline mild pulmonary hypertension. * Estimated RVSP is 36 mmHg. * Estimated RA pressure is 5 mmHg. Pulmonic Valve * Pulmonic valve is not well visualized. * No pulmonic regurgitation. Aorta * Normally sized aortic root. Pericardium * The pericardium appears normal. IVC * Normal IVC dimensions and inspiratory collapse. Pulmonary Artery * Normal visualized portions of the main pulmonary artery. Interatrial Septum * No evidence of PFO with agitated saline contrast. Brain MRI 07/17/17 11:26 IMPRESSION: Acute lacunar infarcts within the right frontal lobe and right temporal lobe. The findings were sent to the Radiology Results Communication [facility] at 9:41 pm on 07/17/2017to be communicated to a licensed caregiver. D/ / Stepan Orozco MD / Stepan Orozco MD Interpreting Provider: Stepan Orozco MD Videofluoroscopic Swallow 07/18/17 13:39 IMPRESSION: 1. Evidence of aspiration of thin barium and nectar thick liquid when ingesting a large bolus. 2. No evidence of penetration or aspiration of puree consistency, fracture, or honey thick liquid. 3. Myri-[id number] amount of vallecular and pyriform sinus residual. Please see separate speech pathology report for full discussion of findings and recommendations. D/ / 07/18/2017 09:54:51 Tasneem Dumont MD / aisha Interpreting Provider: Tasneem Dumont MD Qualifiers: CVA mechanism: unspecified Qualified Code(s): I63.9 - Cerebral infarction, unspecified (3) Hypokalemia Current Visit: Yes Status: Acute Assessment and plan: Potassium remained unchanged after initial supplementation. We will continue to give 20 mEq by mouth twice daily. Continue to monitor labs. (4) DVT prophylaxis Current Visit: Yes Status: Acute Assessment and plan: heparin SQ every 12 hours. (5) Dysphagia Current Visit: Yes Status: Acute Assessment and plan: Plan as above for CVA. Qualifiers: Dysphagia type: unspecified Qualified Code(s): R13.10 - Dysphagia, unspecified - Time Spent With Patient Total time spent is greater than 50% in coordination of care (as documented) at patient's floor/unit and/or counseling patient: less than 15 minutes - Subjective Interval history: Pt was seen and assessed at bedside at 1005a.m. Pt is alert, awake, pleasant, oriented x 3. Pt's speech intermittently slurred/garbled. Pt is amenable to going to SNF for rehab and has decided that he wants to go to [facility] [place]. He denies n/v/d, headache, blurred vision, abd pain. - Constitutional Vitals: Temp Pulse Resp BP Pulse Ox 98.0 F 67 14 159/84 98 07/18/17 15:43 07/18/17 15:43 07/18/17 15:43 07/18/17 15:43 07/18/17 15:43 General appearance: Present: cooperative, A&O X 3, pleasant, no acute distress, answers questions appropriately - Head Head exam: Present: atraumatic, normal inspection, normocephalic - Eye Eye exam: Present: normal appearance, conjuntiva pink, sclera anicteric - Neck Neck exam general surgery: Present: normal inspection, supple, trachea midline. Absent: lymphadenopathy, tenderness - Respiratory Respiratory exam: Present: CTAB. Absent: accessory muscle use, rales, respiratory distress, rhonchi, wheezes - Cardiovascular Cardiovascular exam: Present: RRR, +S1, +S2. Absent: diastolic murmur, gallop, rubs, systolic murmur - GI/Abdominal GI/Abdominal exam: Present: normal bowel sounds, soft. Absent: distended, hepatomegaly, tenderness - Extremities Exam Extremities exam: Present: normal capillary refill, normal inspection, warm, radial pulses palpable and symmetrical. Absent: calf tenderness, cyanotic, pedal edema, tenderness - Neurological Exam Neurological exam: Present: alert, oriented X3, no focal deficits, pronater drift, facial droop, speech deficit. Absent: altered, motor sensory deficit, strengths equal and symetr throughout - Skin Skin exam: Present: dry, intact, normal color, warm. Absent: rash Internal Medicine: Result - Labs CBC & Chem 7: 07/18/17 04:00 07/18/17 04:00 Labs: Short CBC 07/18/17 Range/Units 04:00 WBC 6.7 (4.3-11.1) K/mcL Hgb 15.0 (12.9-16.9) g/dL Hct 44.0 (37.5-50.1) % Plt Count 197 (140-400) K/mcL Neutrophils # 3.9 (1.6-8.9) K/mcL BMP 07/18/17 04:00 Sodium 140 Potassium 3.3 L Chloride 104 Carbon Dioxide 28 BUN 20 Creatinine 0.95 Glucose 95 Calcium 9.4 - ABG Interpretation ABG results: PT/INR, D-dimer PT 11.5 Seconds (9.4-12.1) 07/17/17 07:16 - Impressions Impressions Echocardiogram 07/17/17 11:23 Impressions: LVEF 60-65%. Normal LV chamber size, wall thickness and function. Mild left ventricular diastolic dysfunction. Normal right ventricular structure and function. Mild mitral regurgitation. Borderline mild pulmonary hypertension. Estimated RVSP is 36 mmHg. No evidence of PFO with agitated saline contrast. Left Ventricular Wall Motion: Rest Echo Findings All wall segments showed normal motion. Findings: Study Quality * Technically adequate exam. ECG Findings * Normal sinus rhythm. Left Ventricle * LVEF 60-65%. * Normal LV chamber size, wall thickness and function. * Mild left ventricular diastolic dysfunction. Right Ventricle * Normal right ventricular structure and function. Right Atrium * Mildly dilated right atrium. Left Atrium * Moderately dilated left atrium. Aortic Valve * Aortic valve not well visualized. * No aortic regurgitation. * No aortic stenosis. Mitral Valve * Mildly calcified mitral valve leaflets. * Mild mitral regurgitation. * No mitral stenosis. Tricuspid Valve * Normal tricuspid valve structure and function. * Trace tricuspid regurgitation. * Borderline mild pulmonary hypertension. * Estimated RVSP is 36 mmHg. * Estimated RA pressure is 5 mmHg. Pulmonic Valve * Pulmonic valve is not well visualized. * No pulmonic regurgitation. Aorta * Normally sized aortic root. Pericardium * The pericardium appears normal. IVC * Normal IVC dimensions and inspiratory collapse. Pulmonary Artery * Normal visualized portions of the main pulmonary artery. Interatrial Septum * No evidence of PFO with agitated saline contrast. Brain MRI 07/17/17 11:26 IMPRESSION: Acute lacunar infarcts within the right frontal lobe and right temporal lobe. The findings were sent to the Radiology Results Communication Center at 9:41 pm on 07/17/2017to be communicated to a licensed caregiver. D/ / Stepan Orozco MD / Stepan Orozco MD Interpreting Provider: Stepan Orozco MD Videofluoroscopic Swallow 07/18/17 13:39 IMPRESSION: 1. Evidence of aspiration of thin barium and nectar thick liquid when ingesting a large bolus. 2. No evidence of penetration or aspiration of puree consistency, fracture, or honey thick liquid. 3. [id number] amount of vallecular and pyriform sinus residual. Please see separate speech pathology report for full discussion of findings and recommendations. D/ / 07/18/2017 09:54:51 Tasneem Dumont MD / aisha Interpreting Provider: Tasneem Dumont MD Consult Discharge Plan - Plan [facility]errals: [facility] [Primary Care Provider[facility] -
[2017-07-18] MEDS: cloNIDine HCl 0.1 MG TABLET PO SCH (20:47)
[2017-07-19] MEDS: 0.9 % Sodium Chloride 1,000 ML IVC SCH ×2 (00:17→05:51)
[2017-07-19] MEDS: *HR* Heparin 5,000 UNIT/ML VIAL SQ SCH ×2 (05:52→20:03)
[2017-07-19 08:06] LABS: Basophils # 0.1 K/mcL (0.0-0.2); Eosinophils # 0.3 K/mcL (0.0-0.6); Eosinophils % 4.6 %; Hematocrit 40.4 % (37.5-50.1); Hemoglobin 13.7 g/dL (12.9-16.9); Immature Granulocytes % 0.3 % (0-4); Immature Platelets 5.3 % (1.1-6.1); Lymphocytes % 27.2 %; Mean Corpuscular HGB Conc 33.9 g/dL (31.6-35.5); Mean Corpuscular Hemoglobin 29.8 pg (28.0-33.3); Mean Corpuscular Volume 87.8 fL (83.0-100.0); Mean Platelet Volume 10.9 fL (9.4-12.4); Monocytes # 0.6 K/mcL (0.0-1.3); Monocytes % 8.1 %; Neutrophils # 4.3 K/mcL (1.6-8.9); Platelet Count 188 K/mcL (140-400); Red Cell Distribution Width 12.7 % (11.5-14.5); Segmented Neutrophils % 58.8 %
[2017-07-19] MEDS: NIFEdipine XL (24 HR) 60 MG TAB.ER.24 PO SCH (09:00)
[2017-07-19] MEDS: Ascorbic Acid 500 MG TABLET PO SCH (09:01)
[2017-07-19] MEDS: Losartan/HCTZ 50-12.5 TABLET PO SCH (09:01)
[2017-07-19 10:04] LABS: BUN/Creatinine Ratio 21 (6-26); Blood Urea Nitrogen 20 mg/dL (8-23); Calcium 8.9 mg/dL (8.6-10.3); Carbon Dioxide 26 mEq/L (23-29); Chloride 109 mEq/L (98-107); Glucose 94 mg/dL (70-105); Osmolality,Calculated 292 (280-300); Potassium 3.7 mEq/L (3.5-5.1); Sodium 140 mEq/L (136-145); eGFR For African Americans > 60 (> 60); eGFR For Non-African Americans > 60 (> 60)
[2017-07-19] MEDS: cloNIDine HCl 0.1 MG TABLET PO SCH (20:01)
--- NOTE | 2017-07-19 20:01 | Internal Med Progress Note ---
Date of Encounter: 07/19/17 Time of Encounter: 10:20 - Assessment and plan (1) Hypertension Current Visit: Yes Status: Chronic Assessment and plan: Chronic. Resume home medications. Pt close to baseline today. Hydralazine 10mg IV q6h prn SBP > 160. Qualifiers: Hypertension type: essential hypertension Qualified Code(s): I10 - Essential (primary) hypertension (2) CVA (cerebral vascular accident) Current Visit: Yes Status: Acute Assessment and plan: Monitor for safety and falls. Continue inpt PT/OT PT has recommended patient have physical therapy at SNF. Patient is amenable. Continue telemetry. Continue Lipitor and Plavix. Head CTA 07/17/17 07:17 IMPRESSION: CT HEAD: 1. No acute intracranial abnormality. 2. Global parenchymal volume loss with chronic microvascular ischemic change. 3. Sequelae of prior infarcts within the cerebellar hemispheres bilaterally. CTA HEAD/NECK: 1. No flow limiting stenosis seen of the cervical carotid or vertebral arteries. 2. 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 This is most severely involving the MCAs bilaterally. 3. Mild narrowing of the left posterior communicating artery. 4. A somewhat patulous appearance of the esophagus with question of mild wall thickening. Consider correlation with endoscopy. D/ / Donny Bermudez MD / Donny Bermudez MD Interpreting Provider: Donny Bermudez MD Neck CTA 07/17/17 07:17 IMPRESSION: CT HEAD: 1. No acute intracranial abnormality. 2. Global parenchymal volume loss with chronic microvascular ischemic change. 3. Sequelae of prior infarcts within the cerebellar hemispheres bilaterally. CTA HEAD/NECK: 1. No flow limiting stenosis seen of the cervical carotid or vertebral arteries. 2. 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 This is most severely involving the MCAs bilaterally. 3. Mild narrowing of the left posterior communicating artery. 4. A somewhat patulous appearance of the esophagus with question of mild wall thickening. Consider correlation with endoscopy. D/ / Donny Bermudez MD / Donny Bermudez MD Interpreting Provider: Donny Bermudez MD Echocardiogram 07/17/17 11:23 Impressions: LVEF 60-65%. Normal LV chamber size, wall thickness and function. Mild left ventricular diastolic dysfunction. Normal right ventricular structure and function. Mild mitral regurgitation. Borderline mild pulmonary hypertension. Estimated RVSP is 36 mmHg. No evidence of PFO with agitated saline contrast. Left Ventricular Wall Motion: Rest Echo Findings All wall segments showed normal motion. Findings: Study Quality * Technically adequate exam. ECG Findings * Normal sinus rhythm. Left Ventricle * LVEF 60-65%. * Normal LV chamber size, wall thickness and function. * Mild left ventricular diastolic dysfunction. Right Ventricle * Normal right ventricular structure and function. Right Atrium * Mildly dilated right atrium. Left Atrium * Moderately dilated left atrium. Aortic Valve * Aortic valve not well visualized. * No aortic regurgitation. * No aortic stenosis. Mitral Valve * Mildly calcified mitral valve leaflets. * Mild mitral regurgitation. * No mitral stenosis. Tricuspid Valve * Normal tricuspid valve structure and function. * Trace tricuspid regurgitation. * Borderline mild pulmonary hypertension. * Estimated RVSP is 36 mmHg. * Estimated RA pressure is 5 mmHg. Pulmonic Valve * Pulmonic valve is not well visualized. * No pulmonic regurgitation. Aorta * Normally sized aortic root. Pericardium * The pericardium appears normal. IVC * Normal IVC dimensions and inspiratory collapse. Pulmonary Artery * Normal visualized portions of the main pulmonary artery. Interatrial Septum * No evidence of PFO with agitated saline contrast. Brain MRI 07/17/17 11:26 IMPRESSION: Acute lacunar infarcts within the right frontal lobe and right temporal lobe. The findings were sent to the Radiology Results Communication Center at 9:41 pm on 07/17/2017to be communicated to a licensed caregiver. D/ / Stepan Orozco MD / Stepan Orozco MD Interpreting Provider: Stepan Orzoco MD Videofluoroscopic Swallow 07/18/17 13:39 IMPRESSION: 1. Evidence of aspiration of thin barium and nectar thick liquid when ingesting a large bolus. 2. No evidence of penetration or aspiration of puree consistency, fracture, or honey thick liquid. 3. [id number] amount of vallecular and pyriform sinus residual. Please see separate speech pathology report for full discussion of findings and recommendations. D/ / 07/18/2017 09:54:51 Tasneem Dumont MD / aisha Interpreting Provider: Tasneem Dumont MD Qualifiers: CVA mechanism: unspecified Qualified Code(s): I63.9 - Cerebral infarction, unspecified (3) Hypokalemia Current Visit: Yes Status: Resolved Assessment and plan: Resolved. Continue to monitor. (4) DVT prophylaxis Current Visit: No Status: Acute Assessment and plan: heparin SQ twice a day (5) Dysphagia Current Visit: Yes Status: Acute Assessment and plan: Plan as above for CVA. Honey thick liquids, pureed diet Qualifiers: Dysphagia type: unspecified Qualified Code(s): R13.10 - Dysphagia, unspecified - Time Spent With Patient Total time spent is greater than 50% in coordination of care (as documented) at patient's floor/unit and/or counseling patient: less than 15 minutes - Subjective Interval history: Pt was seen and assessed at bedside at 1020a.m. Pt is alert, awake, pleasant, oriented x 3. I assisted pt from chair to bed, he is weak and requires assistance, his gait is steady. He denies n/v/d, headache, blurred vision, abd pain. Patient is currently waiting on approval for bedside at [facility] [place]. - Constitutional Vitals: Temp Pulse Resp BP Pulse Ox 97.6 F 79 14 147/81 98 07/19/17 15:17 07/19/17 15:17 07/19/17 15:17 07/19/17 15:17 07/19/17 15:17 General appearance: Present: cooperative, A&O X 3, pleasant, no acute distress, answers questions appropriately - Head Head exam: Present: atraumatic, normal inspection, normocephalic - Eye Eye exam: Present: normal appearance, conjuntiva pink, sclera anicteric - Neck Neck exam general surgery: Present: supple, trachea midline. Absent: lymphadenopathy - Respiratory Respiratory exam: Present: CTAB. Absent: accessory muscle use, rales, rhonchi, wheezes - Cardiovascular Cardiovascular exam: Present: RRR, +S1, +S2. Absent: diastolic murmur, gallop, rubs, systolic murmur - GI/Abdominal GI/Abdominal exam: Present: normal bowel sounds, soft, no peritoneal signs. Absent: distended, tenderness - Extremities Exam Extremities exam: Present: warm, radial pulses palpable and symmetrical. Absent : calf tenderness, cyanotic, pedal edema - Neurological Exam Neurological exam: Present: alert, oriented X3, no focal deficits, speech deficit. Absent: motor sensory deficit, pronater drift, facial droop - Skin Skin exam: Present: dry, intact, normal color, warm. Absent: rash Internal Medicine: Result - Labs CBC & Chem 7: 07/19/17 07:14 07/19/17 07:14 - ABG Interpretation ABG results: PT/INR, D-dimer PT 11.5 Seconds (9.4-12.1) 07/17/17 07:16 Consult Discharge Plan - Plan [facility]errals: [facility] [Primary Care Provider] -
[2017-07-20] MEDS: *HR* Heparin 5,000 UNIT/ML VIAL SQ SCH ×2 (05:43→17:49)
[2017-07-20] MEDS: 0.9 % Sodium Chloride 1,000 ML IVC SCH ×4 (05:45→15:13)
[2017-07-20 06:40] LABS: Basophils # 0.1 K/mcL (0.0-0.2); Basophils % 0.9 %; Eosinophils # 0.4 K/mcL (0.0-0.6); Eosinophils % 5.1 %; Hematocrit 41.4 % (37.5-50.1); Hemoglobin 14.7 g/dL (12.9-16.9); Immature Granulocytes % 0.1 % (0-4); Lymphocytes % 27.2 %; Mean Corpuscular HGB Conc 35.5 g/dL (31.6-35.5); Mean Corpuscular Hemoglobin 31.3 pg (28.0-33.3); Mean Corpuscular Volume 88.1 fL (83.0-100.0); Monocytes # 0.6 K/mcL (0.0-1.3); Monocytes % 8.3 %; Neutrophils # 4.4 K/mcL (1.6-8.9); Platelet Count 178 K/mcL (140-400); Red Cell Distribution Width 12.6 % (11.5-14.5); Segmented Neutrophils % 58.4 %
[2017-07-20 06:58] LABS: BUN/Creatinine Ratio 32 (6-26); Blood Urea Nitrogen 30 mg/dL (8-23); Calcium 9.3 mg/dL (8.6-10.3); Carbon Dioxide 24 mEq/L (23-29); Chloride 111 mEq/L (98-107); Glucose 101 mg/dL (70-105); Osmolality,Calculated 300 (280-300); Potassium 3.7 mEq/L (3.5-5.1); Sodium 142 mEq/L (136-145); eGFR For African Americans > 60 (> 60); eGFR For Non-African Americans > 60 (> 60)
[2017-07-20] MEDS: NIFEdipine XL (24 HR) 60 MG TAB.ER.24 PO SCH (10:27)
[2017-07-20] MEDS: Losartan/HCTZ 50-12.5 TABLET PO SCH (10:27)
[2017-07-20] MEDS: Ascorbic Acid 500 MG TABLET PO SCH (10:27)
--- NOTE | 2017-07-20 15:54 | Internal Med Progress Note ---
Date of Encounter: 07/20/17 Time of Encounter: 11:35 - Assessment and plan (1) Hypertension Current Visit: Yes Status: Chronic Assessment and plan: Chronic. Resume home medications. Blood pressure remains close to goal, allowing permissive hypertension status post CVA. Hydralazine 10mg IV q6h prn SBP > 160. Qualifiers: Hypertension type: essential hypertension Qualified Code(s): I10 - Essential (primary) hypertension (2) CVA (cerebral vascular accident) Current Visit: Yes Status: Acute Assessment and plan: Monitor for safety and falls. Continue inpt PT/OT while in hospital Pt will be discharged to SNF for rehab on Saturday 07/22. Continue telemetry. Continue Lipitor and Plavix. Head CTA 07/17/17 07:17 IMPRESSION: CT HEAD: 1. No acute intracranial abnormality. 2. Global parenchymal volume loss with chronic microvascular ischemic change. 3. Sequelae of prior infarcts within the cerebellar hemispheres bilaterally. CTA HEAD/NECK: 1. No flow limiting stenosis seen of the cervical carotid or vertebral arteries. 2. 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 This is most severely involving the MCAs bilaterally. 3. Mild narrowing of the left posterior communicating artery. 4. A somewhat patulous appearance of the esophagus with question of mild wall thickening. Consider correlation with endoscopy. D/ / Donny Bermudez MD / Donny Bermudez MD Interpreting Provider: Donny Bermudez MD Neck CTA 07/17/17 07:17 IMPRESSION: CT HEAD: 1. No acute intracranial abnormality. 2. Global parenchymal volume loss with chronic microvascular ischemic change. 3. Sequelae of prior infarcts within the cerebellar hemispheres bilaterally. CTA HEAD/NECK: 1. No flow limiting stenosis seen of the cervical carotid or vertebral arteries. 2. 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 This is most severely involving the MCAs bilaterally. 3. Mild narrowing of the left posterior communicating artery. 4. A somewhat patulous appearance of the esophagus with question of mild wall thickening. Consider correlation with endoscopy. D/ / Donny Bermudez MD / Donny Bermudez MD Interpreting Provider: Donny Bermudez MD Echocardiogram 07/17/17 11:23 Impressions: LVEF 60-65%. Normal LV chamber size, wall thickness and function. Mild left ventricular diastolic dysfunction. Normal right ventricular structure and function. Mild mitral regurgitation. Borderline mild pulmonary hypertension. Estimated RVSP is 36 mmHg. No evidence of PFO with agitated saline contrast. Left Ventricular Wall Motion: Rest Echo Findings All wall segments showed normal motion. Findings: Study Quality * Technically adequate exam. ECG Findings * Normal sinus rhythm. Left Ventricle * LVEF 60-65%. * Normal LV chamber size, wall thickness and function. * Mild left ventricular diastolic dysfunction. Right Ventricle * Normal right ventricular structure and function. Right Atrium * Mildly dilated right atrium. Left Atrium * Moderately dilated left atrium. Aortic Valve * Aortic valve not well visualized. * No aortic regurgitation. * No aortic stenosis. Mitral Valve * Mildly calcified mitral valve leaflets. * Mild mitral regurgitation. * No mitral stenosis. Tricuspid Valve * Normal tricuspid valve structure and function. * Trace tricuspid regurgitation. * Borderline mild pulmonary hypertension. * Estimated RVSP is 36 mmHg. * Estimated RA pressure is 5 mmHg. Pulmonic Valve * Pulmonic valve is not well visualized. * No pulmonic regurgitation. Aorta * Normally sized aortic root. Pericardium * The pericardium appears normal. IVC * Normal IVC dimensions and inspiratory collapse. Pulmonary Artery * Normal visualized portions of the main pulmonary artery. Interatrial Septum * No evidence of PFO with agitated saline contrast. Brain MRI 07/17/17 11:26 IMPRESSION: Acute lacunar infarcts within the right frontal lobe and right temporal lobe. The findings were sent to the Radiology Results Communication [facility] at 9:41 pm on 07/17/2017to be communicated to a licensed caregiver. D/ / Stepan Orozco MD / Stepan Orozco MD Interpreting Provider: Stepan Orozco MD Videofluoroscopic Swallow 07/18/17 13:39 IMPRESSION: 1. Evidence of aspiration of thin barium and nectar thick liquid when ingesting a large bolus. 2. No evidence of penetration or aspiration of puree consistency, fracture, or honey thick liquid. 3. [id number] amount of vallecular and pyriform sinus residual. Please see separate speech pathology report for full discussion of findings and recommendations. D/ / 07/18/2017 09:54:51 Tasneem Dumont MD / [email or web address] Interpreting Provider: Tasneem Dumont MD Qualifiers: CVA mechanism: unspecified Qualified Code(s): I63.9 - Cerebral infarction, unspecified (3) Dysphagia Current Visit: Yes Status: Acute Assessment and plan: Pt has been on nectar thick liquids. Primary RN reports that pt choked on jello. Chest xray to assess for aspiration was negative for aspiration pneumonia or pulmonary process. Continue prescribed diet. Chest X-Ray 07/20/17 14:04 IMPRESSION: No evidence of acute aspiration pneumonitis or pulmonary process. D/ / Garrett García MD / Garrett García MD Interpreting Provider: Garrett García MD Qualifiers: Dysphagia type: unspecified Qualified Code(s): R13.10 - Dysphagia, unspecified (4) Hypokalemia Current Visit: Yes Status: Resolved Assessment and plan: Resolved. (5) DVT prophylaxis Current Visit: Yes Status: Acute Assessment and plan: Heparin - Time Spent With Patient Total time spent is greater than 50% in coordination of care (as documented) at patient's floor/unit and/or counseling patient: less than 15 minutes - Subjective Interval history: Pt was seen and assessed at bedside at 1135a.m. Pt is sleeping, arouses easily to verbal. Pt is pleasant and oriented x 3. He denies n/v/d, headache, blurred vision, abd pain. Patient will be able to discharge to [facility] on Saturday 07/22. - Constitutional Vitals: Temp Pulse Resp BP Pulse Ox 97.8 F 64 17 162/92 98 07/20/17 11:14 07/20/17 11:14 07/20/17 11:14 07/20/17 11:14 07/20/17 11:14 General appearance: Present: cooperative, A&O X 3, pleasant, no acute distress, answers questions appropriately - Head Head exam: Present: atraumatic, normal inspection, normocephalic - Eye Eye exam: Present: normal appearance, conjuntiva pink, sclera anicteric - Neck Neck exam general surgery: Present: supple, trachea midline. Absent: lymphadenopathy, tenderness - Respiratory Respiratory exam: Present: CTAB. Absent: accessory muscle use, rales, rhonchi, wheezes - Cardiovascular Cardiovascular exam: Present: RRR, +S1, +S2. Absent: diastolic murmur, gallop, rubs, systolic murmur - GI/Abdominal GI/Abdominal exam: Present: normal bowel sounds, soft. Absent: distended, hepatomegaly, tenderness - Extremities Exam Extremities exam: Present: normal capillary refill, normal inspection, warm, radial pulses palpable and symmetrical. Absent: calf tenderness, cyanotic, joint swelling, pedal edema, tenderness - Neurological Exam Neurological exam: Present: alert, oriented X3, no focal deficits. Absent: facial droop, speech deficit - Skin Skin exam: Present: dry, intact, normal color, warm. Absent: rash Internal Medicine: Result - Labs CBC & Chem 7: 07/20/17 05:58 07/20/17 05:58 Labs: Short CBC 07/20/17 Range/Units 05:58 WBC 7.5 (4.3-11.1) K/mcL Hgb 14.7 (12.9-16.9) g/dL Hct 41.4 (37.5-50.1) % Plt Count 178 (140-400) K/mcL Neutrophils # 4.4 (1.6-8.9) K/mcL BMP 07/20/17 05:58 Sodium 142 Potassium 3.7 Chloride 111 H Carbon Dioxide 24 BUN 30 H Creatinine 0.95 Glucose 101 Calcium 9.3 - ABG Interpretation ABG results: PT/INR, D-dimer PT 11.5 Seconds (9.4-12.1) 07/17/17 07:16 - Impressions Impressions Chest X-Ray 07/20/17 14:04 IMPRESSION: No evidence of acute aspiration pneumonitis or pulmonary process. D/ / Garrett García MD / Garrett García MD Interpreting Provider: Garrett García MD Consult Discharge Plan - Plan [facility]errals: [facility] [Primary Care Provider] -
[2017-07-20] MEDS: cloNIDine HCl 0.1 MG TABLET PO SCH (22:15)
[2017-07-21] MEDS: 0.9 % Sodium Chloride 1,000 ML IVC SCH ×3 (03:37→23:58)
[2017-07-21] MEDS: *HR* Heparin 5,000 UNIT/ML VIAL SQ SCH ×2 (05:39→17:48)
[2017-07-21 06:01] LABS: Basophils # 0.1 K/mcL (0.0-0.2); Basophils % 0.7 %; Eosinophils # 0.3 K/mcL (0.0-0.6); Hematocrit 39.8 % (37.5-50.1); Hemoglobin 13.5 g/dL (12.9-16.9); Immature Granulocytes % 0.3 % (0-4); Lymphocytes # 1.7 K/mcL (0.6-4.6); Lymphocytes % 23.5 %; Mean Corpuscular HGB Conc 33.9 g/dL (31.6-35.5); Mean Corpuscular Hemoglobin 29.7 pg (28.0-33.3); Mean Corpuscular Volume 87.5 fL (83.0-100.0); Monocytes # 0.5 K/mcL (0.0-1.3); Monocytes % 6.3 %; Neutrophils # 4.7 K/mcL (1.6-8.9); Platelet Count 174 K/mcL (140-400); Red Blood Count 4.55 M/mcL (4.19-5.50); Red Cell Distribution Width 12.7 % (11.5-14.5); Segmented Neutrophils % 65.2 %
[2017-07-21 06:18] LABS: BUN/Creatinine Ratio 33 (6-26); Blood Urea Nitrogen 29 mg/dL (8-23); Calcium 8.8 mg/dL (8.6-10.3); Carbon Dioxide 23 mEq/L (23-29); Chloride 111 mEq/L (98-107); Glucose 96 mg/dL (70-105); Osmolality,Calculated 300 (280-300); Potassium 3.8 mEq/L (3.5-5.1); Sodium 142 mEq/L (136-145); eGFR For African Americans > 60 (> 60); eGFR For Non-African Americans > 60 (> 60)
[2017-07-21] MEDS: Losartan/HCTZ 50-12.5 TABLET PO SCH (09:52)
[2017-07-21] MEDS: Ascorbic Acid 500 MG TABLET PO SCH (09:52)
[2017-07-21] MEDS: NIFEdipine XL (24 HR) 60 MG TAB.ER.24 PO SCH (09:52)
--- NOTE | 2017-07-21 15:29 | Internal Med Progress Note ---
Date of Encounter: 07/21/17 Time of Encounter: 11:25 - Assessment and plan (1) Hypertension Current Visit: Yes Status: Chronic Assessment and plan: Chronic. Resume home medications. Blood pressure remains close to goal, permissive hypertension status post CVA. Hydralazine 10mg IV prn Qualifiers: Hypertension type: essential hypertension Qualified Code(s): I10 - Essential (primary) hypertension (2) CVA (cerebral vascular accident) Current Visit: Yes Status: Acute Assessment and plan: Monitor for safety and falls. Bed alarm, up with assist. Continue inpt PT/OT while in hospital Pt will be discharged to SNF for rehab on Saturday 07/22. Continue telemetry. Continue Lipitor and Plavix. Head CTA 07/17/17 07:17 IMPRESSION: CT HEAD: 1. No acute intracranial abnormality. 2. Global parenchymal volume loss with chronic microvascular ischemic change. 3. Sequelae of prior infarcts within the cerebellar hemispheres bilaterally. CTA HEAD/NECK: 1. No flow limiting stenosis seen of the cervical carotid or vertebral arteries. 2. 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 This is most severely involving the MCAs bilaterally. 3. Mild narrowing of the left posterior communicating artery. 4. A somewhat patulous appearance of the esophagus with question of mild wall thickening. Consider correlation with endoscopy. D/ / Donny Bermudez MD / Donny Bermudez MD Interpreting Provider: Donny Bermudez MD Neck CTA 07/17/17 07:17 IMPRESSION: CT HEAD: 1. No acute intracranial abnormality. 2. Global parenchymal volume loss with chronic microvascular ischemic change. 3. Sequelae of prior infarcts within the cerebellar hemispheres bilaterally. CTA HEAD/NECK: 1. No flow limiting stenosis seen of the cervical carotid or vertebral arteries. 2. 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 This is most severely involving the MCAs bilaterally. 3. Mild narrowing of the left posterior communicating artery. 4. A somewhat patulous appearance of the esophagus with question of mild wall thickening. Consider correlation with endoscopy. D/ / Donny Bermudez MD / Donny Bermudez MD Interpreting Provider: Donny Bermudez MD Echocardiogram 07/17/17 11:23 Impressions: LVEF 60-65%. Normal LV chamber size, wall thickness and function. Mild left ventricular diastolic dysfunction. Normal right ventricular structure and function. Mild mitral regurgitation. Borderline mild pulmonary hypertension. Estimated RVSP is 36 mmHg. No evidence of PFO with agitated saline contrast. Left Ventricular Wall Motion: Rest Echo Findings All wall segments showed normal motion. Findings: Study Quality * Technically adequate exam. ECG Findings * Normal sinus rhythm. Left Ventricle * LVEF 60-65%. * Normal LV chamber size, wall thickness and function. * Mild left ventricular diastolic dysfunction. Right Ventricle * Normal right ventricular structure and function. Right Atrium * Mildly dilated right atrium. Left Atrium * Moderately dilated left atrium. Aortic Valve * Aortic valve not well visualized. * No aortic regurgitation. * No aortic stenosis. Mitral Valve * Mildly calcified mitral valve leaflets. * Mild mitral regurgitation. * No mitral stenosis. Tricuspid Valve * Normal tricuspid valve structure and function. * Trace tricuspid regurgitation. * Borderline mild pulmonary hypertension. * Estimated RVSP is 36 mmHg. * Estimated RA pressure is 5 mmHg. Pulmonic Valve * Pulmonic valve is not well visualized. * No pulmonic regurgitation. Aorta * Normally sized aortic root. Pericardium * The pericardium appears normal. IVC * Normal IVC dimensions and inspiratory collapse. Pulmonary Artery * Normal visualized portions of the main pulmonary artery. Interatrial Septum * No evidence of PFO with agitated saline contrast. Brain MRI 07/17/17 11:26 IMPRESSION: Acute lacunar infarcts within the right frontal lobe and right temporal lobe. The findings were sent to the Radiology Results Communication Center at 9:41 pm on 07/17/2017to be communicated to a licensed caregiver. D/ / Stepan Orozco MD / Stepan Orozco MD Interpreting Provider: Stepan Orozco MD Videofluoroscopic Swallow 07/18/17 13:39 IMPRESSION: 1. Evidence of aspiration of thin barium and nectar thick liquid when ingesting a large bolus. 2. No evidence of penetration or aspiration of puree consistency, fracture, or honey thick liquid. 3. [id number] amount of vallecular and pyriform sinus residual. Please see separate speech pathology report for full discussion of findings and recommendations. D/ / 07/18/2017 09:54:51 Tasneem Dumont MD / aisha Interpreting Provider: Tasneem Dumont MD Qualifiers: CVA mechanism: unspecified Qualified Code(s): I63.9 - Cerebral infarction, unspecified (3) Dysphagia Current Visit: Yes Status: Acute Assessment and plan: Pt has been on honey thick liquids. Continue prescribed diet. Chest X-Ray 07/20/17 14:04 IMPRESSION: No evidence of acute aspiration pneumonitis or pulmonary process. D/ / Garrett García MD / Garrett García MD Interpreting Provider: Garrett García MD Qualifiers: Dysphagia type: unspecified Qualified Code(s): R13.10 - Dysphagia, unspecified (4) Hypokalemia Current Visit: Yes Status: Resolved Assessment and plan: Resolved. Continue to monitor labs. (5) DVT prophylaxis Current Visit: Yes Status: Acute Assessment and plan: Heparin SQ BID - Time Spent With Patient Total time spent is greater than 50% in coordination of care (as documented) at patient's floor/unit and/or counseling patient: less than 15 minutes - Subjective Interval history: Pt was seen and assessed at bedside at 1125a.m. female family member at bedside. Questions answered. Pt is pleasant and oriented x 3. He denies n/v/d, headache, blurred vision, abd pain. He reports chronic right hip pain since childhood, denies need for pain medication and denies change in quality pain above baseline. Patient will be able to discharge to [facility] tomorrow. - Constitutional Vitals: Temp Pulse Resp BP Pulse Ox 97.8 F 79 17 167/98 95 07/21/17 10:38 07/21/17 10:38 07/21/17 10:38 07/21/17 10:38 07/21/17 10:38 General appearance: Present: cooperative, A&O X 3, pleasant, no acute distress, answers questions appropriately - Head Head exam: Present: atraumatic, normal inspection, normocephalic - Eye Eye exam: Present: PERRL, conjuntiva pink, sclera anicteric Pupils: Present: PERRL - Neck Neck exam general surgery: Present: supple, trachea midline. Absent: lymphadenopathy - Respiratory Respiratory exam: Present: CTAB. Absent: accessory muscle use, rales, rhonchi, wheezes - Cardiovascular Cardiovascular exam: Present: RRR, +S1, +S2. Absent: diastolic murmur, gallop, rubs, systolic murmur - GI/Abdominal GI/Abdominal exam: Present: normal bowel sounds, soft. Absent: distended, tenderness - Extremities Exam Extremities exam: Present: warm, radial pulses palpable and symmetrical. Absent : calf tenderness, cyanotic, pedal edema - Neurological Exam Neurological exam: Present: alert, oriented X3, no focal deficits, speech deficit. Absent: altered, facial droop - Skin Skin exam: Present: dry, intact, normal color, warm. Absent: rash Internal Medicine: Result - Labs CBC & Chem 7: 07/21/17 05:03 07/21/17 05:03 Labs: Short CBC 07/21/17 Range/Units 05:03 WBC 7.3 (4.3-11.1) K/mcL Hgb 13.5 (12.9-16.9) g/dL Hct 39.8 (37.5-50.1) % Plt Count 174 (140-400) K/mcL Neutrophils # 4.7 (1.6-8.9) K/mcL BMP 07/21/17 05:03 Sodium 142 Potassium 3.8 Chloride 111 H Carbon Dioxide 23 BUN 29 H Creatinine 0.89 Glucose 96 Calcium 8.8 - ABG Interpretation ABG results: PT/INR, D-dimer PT 11.5 Seconds (9.4-12.1) 07/17/17 07:16 - Impressions Impressions Chest X-Ray 07/20/17 14:04 IMPRESSION: No evidence of acute aspiration pneumonitis or pulmonary process. D/ / 07/20/2017 16:12:41 Garrett García MD / aisha Interpreting Provider: Garrett García MD Consult Discharge Plan - Plan [facility]errals: [facility] [Primary Care Provider] -
[2017-07-21] MEDS: cloNIDine HCl 0.1 MG TABLET PO SCH (20:54)
[2017-07-22 04:41] LABS: Basophils # 0.1 K/mcL (0.0-0.2); Basophils % 0.7 %; Eosinophils # 0.4 K/mcL (0.0-0.6); Eosinophils % 5.1 %; Hematocrit 39.2 % (37.5-50.1); Hemoglobin 13.6 g/dL (12.9-16.9); Immature Granulocytes % 0.3 % (0-4); Lymphocytes % 27.4 %; Mean Corpuscular HGB Conc 34.7 g/dL (31.6-35.5); Mean Corpuscular Hemoglobin 30.6 pg (28.0-33.3); Mean Corpuscular Volume 88.1 fL (83.0-100.0); Mean Platelet Volume 10.7 fL (9.4-12.4); Monocytes # 0.5 K/mcL (0.0-1.3); Monocytes % 6.9 %; Neutrophils # 4.3 K/mcL (1.6-8.9); Platelet Count 176 K/mcL (140-400); Red Blood Count 4.45 M/mcL (4.19-5.50); Red Cell Distribution Width 12.5 % (11.5-14.5); Segmented Neutrophils % 59.6 %
[2017-07-22 05:02] LABS: BUN/Creatinine Ratio 28 (6-26); Blood Urea Nitrogen 27 mg/dL (8-23); Calcium 9.2 mg/dL (8.6-10.3); Carbon Dioxide 27 mEq/L (23-29); Chloride 110 mEq/L (98-107); Glucose 100 mg/dL (70-105); Osmolality,Calculated 297 (280-300); Potassium 4.1 mEq/L (3.5-5.1); Sodium 141 mEq/L (136-145); eGFR For African Americans > 60 (> 60); eGFR For Non-African Americans > 60 (> 60)
[2017-07-22] MEDS: *HR* Heparin 5,000 UNIT/ML VIAL SQ SCH (06:11)
[2017-07-22] MEDS: Ascorbic Acid 500 MG TABLET PO SCH (10:04)
[2017-07-22] MEDS: Losartan/HCTZ 50-12.5 TABLET PO SCH (10:04)
[2017-07-22] MEDS: NIFEdipine XL (24 HR) 60 MG TAB.ER.24 PO SCH (10:04)
[2017-07-22 11:15] VITALS: BP 168/79
--- NOTE | 2017-07-22 11:25 | Discharge Summary ---
- NOTES TO OUTPATIENT PROVIDER Notes to Outpatient Provider: Pt was admitted for CVA. Pt will need speech therapy and ECF skilled. Orders not resulted at time of discharge: Pending orders 07/23/17 04:00 Basic Metabolic Panel AM 0400 Complete Blood Count [HEME] AM 0400 Date of Encounter: 07/22/17 Time of Encounter: 09:10 - Discharge Diagnosis (1) Hypertension Priority: Primary Status: Chronic Assessment and Plan: Chronic. Resume home medications. Blood pressure remains close to goal, permissive hypertension status post CVA. Consider adding additional medication if still hypertensive in a few days. Qualifiers: Hypertension type: essential hypertension Qualified Code(s): I10 - Essential (primary) hypertension (2) CVA (cerebral vascular accident) Priority: Secondary Status: Acute Assessment and Plan: Monitor for safety and falls. Bed alarm, up with assist. Continue PT/OT, speech at SNF. Discharge today. Continue Lipitor and Plavix. Head CTA 07/17/17 07:17 IMPRESSION: CT HEAD: 1. No acute intracranial abnormality. 2. Global parenchymal volume loss with chronic microvascular ischemic change. 3. Sequelae of prior infarcts within the cerebellar hemispheres bilaterally. CTA HEAD/NECK: 1. No flow limiting stenosis seen of the cervical carotid or vertebral arteries. 2. 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 This is most severely involving the MCAs bilaterally. 3. Mild narrowing of the left posterior communicating artery. 4. A somewhat patulous appearance of the esophagus with question of mild wall thickening. Consider correlation with endoscopy. D/ / Donny Bermudez MD / Donny Bermudez MD Interpreting Provider: Donny Bermudez MD Neck CTA 07/17/17 07:17 IMPRESSION: CT HEAD: 1. No acute intracranial abnormality. 2. Global parenchymal volume loss with chronic microvascular ischemic change. 3. Sequelae of prior infarcts within the cerebellar hemispheres bilaterally. CTA HEAD/NECK: 1. No flow limiting stenosis seen of the cervical carotid or vertebral arteries. 2. 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 This is most severely involving the MCAs bilaterally. 3. Mild narrowing of the left posterior communicating artery. 4. A somewhat patulous appearance of the esophagus with question of mild wall thickening. Consider correlation with endoscopy. D/ / Donny Bermudez MD / Donny Bermudez MD Interpreting Provider: Donny Bermudez MD Echocardiogram 07/17/17 11:23 Impressions: LVEF 60-65%. Normal LV chamber size, wall thickness and function. Mild left ventricular diastolic dysfunction. Normal right ventricular structure and function. Mild mitral regurgitation. Borderline mild pulmonary hypertension. Estimated RVSP is 36 mmHg. No evidence of PFO with agitated saline contrast. Left Ventricular Wall Motion: Rest Echo Findings All wall segments showed normal motion. Findings: Study Quality * Technically adequate exam. ECG Findings * Normal sinus rhythm. Left Ventricle * LVEF 60-65%. * Normal LV chamber size, wall thickness and function. * Mild left ventricular diastolic dysfunction. Right Ventricle * Normal right ventricular structure and function. Right Atrium * Mildly dilated right atrium. Left Atrium * Moderately dilated left atrium. Aortic Valve * Aortic valve not well visualized. * No aortic regurgitation. * No aortic stenosis. Mitral Valve * Mildly calcified mitral valve leaflets. * Mild mitral regurgitation. * No mitral stenosis. Tricuspid Valve * Normal tricuspid valve structure and function. * Trace tricuspid regurgitation. * Borderline mild pulmonary hypertension. * Estimated RVSP is 36 mmHg. * Estimated RA pressure is 5 mmHg. Pulmonic Valve * Pulmonic valve is not well visualized. * No pulmonic regurgitation. Aorta * Normally sized aortic root. Pericardium * The pericardium appears normal. IVC * Normal IVC dimensions and inspiratory collapse. Pulmonary Artery * Normal visualized portions of the main pulmonary artery. Interatrial Septum * No evidence of PFO with agitated saline contrast. Brain MRI 07/17/17 11:26 IMPRESSION: Acute lacunar infarcts within the right frontal lobe and right temporal lobe. The findings were sent to the Radiology Results Communication [facility] at 9:41 pm on 07/17/2017to be communicated to a licensed caregiver. D/ / Stepan Orozco MD / Stepan Orozco MD Interpreting Provider: Stepan Orozco MD Videofluoroscopic Swallow 07/18/17 13:39 IMPRESSION: 1. Evidence of aspiration of thin barium and nectar thick liquid when ingesting a large bolus. 2. No evidence of penetration or aspiration of puree consistency, fracture, or honey thick liquid. 3. [id number] amount of vallecular and pyriform sinus residual. Please see separate speech pathology report for full discussion of findings and recommendations. D/ / 07/18/2017 09:54:51 Tasneem Dumont MD / aisha Interpreting Provider: Tasneem Dumont MD Qualifiers: CVA mechanism: unspecified Qualified Code(s): I63.9 - Cerebral infarction, unspecified (3) Dysphagia Priority: Secondary Status: Acute Assessment and Plan: Pt has been on honey thick liquids. Honey thick liquids, regular diet. Chest X-Ray 07/20/17 14:04 IMPRESSION: No evidence of acute aspiration pneumonitis or pulmonary process. D/ / Garrett García MD / Garrett García MD Interpreting Provider: Garrett García MD Qualifiers: Dysphagia type: unspecified Qualified Code(s): R13.10 - Dysphagia, unspecified (4) Hypokalemia Priority: Secondary Status: Resolved Assessment and Plan: Resolved. (5) DVT prophylaxis Priority: Secondary Status: Acute Assessment and Plan: Heparin SQ Hospital course: Mr. Evans is a 81 year old male with PMH of urinary incontinuence, prerenal azotemia, cerebral hemorrhage with craniotomy who presented to the emergency department from home for evaluation of slurred speech search patient up to date for evaluation. Patient has prior CVA with difficulty walking and normally uses a walker and has normally slow speech at baseline, however it was slurred and different from normal. Upon presentation, patient also had dysphagia admitting having difficulty drinking thin liquids. Patient's head CT was negative, patient did have some abnormality of the esophagus with question mild wall thickening on head CT, could consider endoscopy after discharge. A CT head and neck showed no flow limiting stenosis of carotid or vertebral arteries, and multiple stenoses involving anterior circulation. Echocardiogram showed an LVEF of 66%, mild LV DD, mild MR no evidence of PFO and normal wall segment motion. Brain MRI showed acute lacunar infarcts within the right frontal lobe and right temporal lobe. Evaluated for swallow study was found to have aspiration of thin barium and nectar thick liquid. He is on a honey thickened liquid and regular diet at this time. Patient was evaluated by neurology, feel CVA is likely related intracranial atherosclerosis. He was on aspirin therapy previously and failed, we will change to Plavix 75 mg by mouth daily, and due to prior spontaneous cerebral hemorrhage in February, avoid dual antiplatelet therapy. Patient has been participating in PT and OT, will be discharged to [facility] for continued therapy. Discharge discussed with: patient, nurse - Time Spent with Patient Total time spent providing and/or coordinating discharge services: Less than 30 minutes - Discharge Medications Home Medications: Ascorbic Acid [Vitamin C] 500 mg PO DAILY 03/09/16 [History] Aspirin 325 mg PO DAILY 03/09/16 [History] Losartan/Hydrochlorothiazide [Hyzaar 100-25 Tablet] 1 each PO DAILY 03/09/16 [ History] NIFEdipine [Afeditab Cr] 120 mg PO DAILY 03/09/16 [History] cloNIDine HCl [CloNIDine HCl] 0.15 mg PO HS 03/09/16 [History] Atorvastatin [Lipitor] 10 mg PO HS 07/17/17 [History] Tamsulosin [Flomax] 0.4 mg PO DAILY 07/17/17 [History] Clopidogrel [Plavix] 75 mg PO DAILY tablet 07/22/17 [Rx] Allergies/Adverse Reactions: 3 Allergy/AdvReac Type Severity Reaction Status Date / Time sertraline AdvReac Unknown Verified 03/09/16 18:49 Date of admission: 07/19/17 08:15 [facility] care physician[facility] Discharging clinician: Sachi Tran Anticipated date of discharge: 07/22/17 - Constitutional Vitals: Temp Pulse Resp BP Pulse Ox 97.6 F 63 14 168/79 98 07/22/17 11:14 07/22/17 11:14 07/22/17 11:14 07/22/17 11:14 07/22/17 11:14 General appearance: Present: cooperative, A&O X 3, pleasant, no acute distress, answers questions appropriately - Head Head exam: Present: atraumatic, normal inspection, normocephalic - Eye Eye exam: Present: normal appearance, conjuntiva pink, sclera anicteric - Neck Neck exam general surgery: Present: supple, trachea midline. Absent: lymphadenopathy, tenderness - Respiratory Respiratory exam: Present: CTAB. Absent: accessory muscle use, chest wall tenderness, rales, respiratory distress, rhonchi, wheezes - Cardiovascular Cardiovascular exam: Present: RRR, +S1, +S2. Absent: diastolic murmur, gallop, rubs, systolic murmur - GI/Abdominal GI/Abdominal exam: Present: normal bowel sounds, soft. Absent: distended, hepatomegaly, tenderness - Extremities Exam Extremities exam: Present: normal capillary refill, normal inspection, warm, radial pulses palpable and symmetrical. Absent: calf tenderness, cyanotic, pedal edema, tenderness - Neurological Exam Neurological exam: Present: alert, oriented X3, no focal deficits, strengths equal and symetr throughout, speech deficit. Absent: facial droop - Skin Skin exam: Present: dry, intact, normal color, warm. Absent: rash - Patient Status Disposition: Transfer SNF Condition: Good Functional capacity at discharge: uses cane/walker Overall status at discharge: patient is progressing back to baseline - Discharge Instructions [facility]: [facility] [Primary Care Provider[facility] - - Diet and Activity Activity: ambulate only with your walker, as per physical therapy Diet: other
--- NOTE | 2017-07-22 11:51 | Physician Discharge Referral ---
ExtendedCare Referral Info Transfer To: [facility] Provider in Charge after Transfer: PCP Institutional Level of Care: Skilled - Diagnosis (1) Hypertension Priority: Secondary Status: Chronic (2) CVA (cerebral vascular accident) Priority: Primary Status: Acute (3) Dysphagia Priority: Secondary Status: Acute (4) Hypokalemia Priority: Secondary Status: Resolved (5) DVT prophylaxis Priority: Secondary Status: Acute Prognosis: Fair Aware of Diagnosis: Patient Aware of Prognosis: Family - Transfer Medications Home Medications: Ascorbic Acid [Vitamin C] 500 mg PO DAILY 03/09/16 [History] Aspirin 325 mg PO DAILY 03/09/16 [History] Losartan/Hydrochlorothiazide [Hyzaar 100-25 Tablet] 1 each PO DAILY 03/09/16 [ History] NIFEdipine [Afeditab Cr] 120 mg PO DAILY 03/09/16 [History] cloNIDine HCl [CloNIDine HCl] 0.15 mg PO HS 03/09/16 [History] Atorvastatin [Lipitor] 10 mg PO HS 07/17/17 [History] Tamsulosin [Flomax] 0.4 mg PO DAILY 07/17/17 [History] Clopidogrel [Plavix] 75 mg PO DAILY tablet 07/22/17 [Rx] Allergies/Adverse Reactions: 3 Allergy/AdvReac Type Severity Reaction Status Date / Time sertraline AdvReac Unknown Verified 03/09/16 18:49 - Respiratory Orders Smoking Cessation: Smoking cessation has been advised. For more information, call the [place] Tobacco Quit Line at 0-001-ZDYKNOW. - Lab Orders Lab Orders: 2 Step Mantoux Test per State regulation, CBC - Ancillary Orders May go on ALEX w/family/respon republican w/meds at nurse discretion PRN, May consult with Dentist, Fur Glosser, Field Services Director PRN - Advance Directives Code Status: Full Code - Mobility Orders Chair, Ambulate - Rehabiliation Orders Rehab Potential: Fair Rehab Orders: ROM Exercises, Evaluation for Physical Therapy, Evaluation for Occupational Therapy - Treatments Skin tear care topically daily PRN per policy, May check for fecal impaction rectally daily PRN, Fleet enema rectally every other day PRN cleansing purposes - Diet Orders Regular CERTIFICATION: I certify that the transfer of the above named patient to an Extended Care Facility is necessary for the continuing treatment of the diagnosis listed. The above information is true and accurate reflection of patient's current condition. Confidential - Redisclosure prohibited without a patient's written consent.
== END 2017-07-22 14:00 | DRG 66 ==
LOC: EMEROO 06:50 → 3BNU 06:50
PROVIDERS: ADMIT Internal Medicine; ATTEND Internal Medicine

== ENCOUNTER 2017-08-15 21:56 | Observation (INO) ==
--- NOTE | 2017-08-15 22:14 | Emergency Department Note ---
Disposition Clinical Impression: Slurred speech, Weakness, Multiple falls Head injury Qualifiers: Encounter type: initial encounter Qualified Code(s): S09.90XA - Unspecified injury of head, initial encounter Disposition: Admitted As Inpatient Condition: Fair Forms: ED Satisfaction Letter Time of Disposition: 23:33 Fall HPI - General Stated Complaint: head injury Time Seen by Provider: 08/15/17 21:59 Source: patient Mode of arrival: ambulatory Limitations: no limitations Nursing Notes Reviewed: Yes Vital Signs Reviewed: Yes - History of Present Illness HPI Narrative: Patient is an 81-year-old male who presents to [facility] ED with a chief complaint of multiple falls and head injuries. Family states he was recently discharged home from [facility] on Sunday and since then he has fallen multiple times. He still has leg weakness and has trouble getting his foot over. Denies any current headache, neck pain, chest pain, difficulty breathing, abdominal pain, problems with urination or bowel movements. Family is concerned that he had another stroke since states he had extreme slurred speech earlier today. However when asking when his last known well was, they are unsure exactly when this was. Patient does follow with the [place] neurology. Pt Subjective Complaint: fall Onset (ago): day(s) Fall Witnessed: no Place Fall Occurred: home Loss of Consciousness: none Prolonged Down Time?: no Context: tripped/slipped Location of injury: head Associated symptoms (after fall): Reports: denies. Denies: headache, neck pain , numbness, weakness, chest pain, shortness of breath, abdominal pain - Related Data Home Medications Medication Instructions Recorded Confirmed Ascorbic Acid [Vitamin C] 500 mg PO DAILY 03/09/16 07/17/17 Aspirin 325 mg PO DAILY 03/09/16 07/17/17 Losartan/Hydrochlorothiazide 1 each PO DAILY 03/09/16 07/17/17 [Hyzaar 100-25 Tablet] NIFEdipine [Afeditab Cr] 120 mg PO DAILY 03/09/16 07/17/17 cloNIDine HCl [CloNIDine HCl] 0.15 mg PO HS 03/09/16 07/17/17 Atorvastatin [Lipitor] 10 mg PO HS 07/17/17 07/17/17 Tamsulosin [Flomax] 0.4 mg PO DAILY 07/17/17 07/17/17 Previous Rx's Medication Instructions Recorded Clopidogrel [Plavix] 75 mg PO DAILY tablet 07/22/17 Allergies Allergy/AdvReac Type Severity Reaction Status Date / Time sertraline AdvReac Unknown Verified 03/09/16 18:49 All systems ED: reviewed and negative except as stated. Fall PMH - Past Medical History Medical history: Reports: cancer, CVA, hypertension, other Surgical history: Reports: no surgical history Psychiatric history: Reports: anxiety, depression - Social History Smoking Status: Never smoker Alcohol use: Reports: none Drug use: Reports: none Physical Exam - General Limitations: no limitations General appearance: alert, in no apparent distress - Head Head exam: other (Multiple contusions on the scalp) - Eye Eye exam: Present: normal appearance, PERRL, EOMI - ENT ENT exam: normal exam, normal oropharynx, mucous membranes moist - Neck Neck exam: Present: normal inspection, full ROM, trachea midline - Chest Chest inspection: Present: normal inspection, symmetric chest wall rise - Respiratory Respiratory exam: Present: normal lung sounds bilaterally - Cardiovascular Cardiovascular exam: Present: regular rate, normal rhythm, normal heart sounds - Abdominal Exam Abdominal exam: Present: soft, Non-Tender. Absent: tenderness, distention, guarding, rebound, rigidity - Extremities Exam Extremities exam: Present: normal inspection, full ROM. Absent: tenderness, pedal edema - Back Exam Back exam: Present: normal inspection, full ROM. Absent: tenderness - Neurological Exam Neurological exam: Present: alert, oriented X3 - Psychiatric Psychiatric exam: Present: normal affect, normal mood - Skin Skin exam: Present: warm, dry, intact, normal color Course Course Narrative: Patient seen and examined. Patient with multiple head injuries and multiple falls. Due to the reported history of worsening slurred speech, we will do stroke workup. NIH of 1 for slurred speech. - Reevaluation(s) Reevaluation #1: Patient will be admitted pending lab work and CT of the head. Time: 22:38 Reevaluation #2: Labwork shows mild hypokalemia. 40 mEq of oral potassium given. Will admit for his multiple falls since patient will need further rehabilitation. He may also benefit from another MRI to evaluate for further strokes. I discussed with the hospitalists Dr. Brunson who has accepted patient for admission. Patient has already had a full dose aspirin today. Time: 23:33 Vital Signs Temperature 98.4 F 08/15/17 22:32 Pulse Rate 0 08/15/17 22:32 Respiratory Rate 0 08/15/17 22:32 Blood Pressure 0/0 08/15/17 22:32 O2 Sat by Pulse Oximetry 0 08/15/17 22:32 Temperature 98.4 F 08/15/17 22:32 Pulse Rate 0 08/15/17 22:32 Respiratory Rate 0 08/15/17 22:32 Blood Pressure 0/0 08/15/17 22:32 O2 Sat by Pulse Oximetry 0 08/15/17 22:32 Oxygen Delivery Oxygen Delivery Room Air Fall - Medical Records Medical records reviewed: Yes I reviewed the patient's medical records. - Lab Data Lab results reviewed: Yes I reviewed the patient's lab results. Result diagrams: 08/15/17 22:44 08/15/17 22:44 Lab Results 08/15/17 08/15/17 08/15/17 Range/Units 22:44 22:44 22:44 WBC 8.7 (4.3-11.1) K/mcL RBC 4.23 (4.19-5.50) M/mcL Hgb 13.0 (12.9-16.9) g/dL Hct 38.1 (37.5-50.1) % MCV 90.1 (83.0-100.0) fL MCH 30.7 (28.0-33.3) pg MCHC 34.1 (31.6-35.5) g/dL RDW 12.9 (11.5-14.5) % Plt Count 192 (140-400) K/mcL MPV 10.6 (9.4-12.4) fL Immature Gran % 0.5 (0-4) % Seg Neutrophils % 61.4 % Lymphocytes % 22.0 % Monocytes % 10.9 % Eosinophils % 4.6 % Basophils % 0.6 % Neutrophils # 5.3 (1.6-8.9) K/mcL Lymphocytes # 1.9 (0.6-4.6) K/mcL Monocytes # 1.0 (0.0-1.3) K/mcL Eosinophils # 0.4 (0.0-0.6) K/mcL Basophils # 0.1 (0.0-0.2) K/mcL PT 11.5 (9.4-12.1) Seconds INR 1.1 APTT 33.1 (26.0-36.0) Seconds Sodium 139 (136-145) mEq/L Potassium 3.3 L (3.5-5.1) mEq/L Chloride 103 (98-107) mEq/L Carbon Dioxide 28 (23-29) mEq/L BUN 41 H (8-23) mg/dL Creatinine 1.25 (0.70-1.30) mg/dL Est GFR ( Amer) > 60 (> 60) Est GFR (Non-Af Amer) 55 L (> 60) BUN/Creatinine Ratio 33 H (6-26) Glucose 121 H (70-105) mg/dL Calculated Osmolality 299 (280-300) Calcium 9.6 (8.6-10.3) mg/dL Troponin I < 0.03 (< 0.04) ng/mL - Radiology Data Radiology results reviewed: Yes I reviewed the patient's radiology results. Head CT 08/15/17 22:08 IMPRESSION: Multifocal small-vessel ischemic change and multiple old infarcts No acute hemorrhage. D/ / Griffin Wray / Griffin Wray Interpreting Provider: Griffin Wray
--- NOTE | 2017-08-15 22:33 | Emergency Department Note ---
Disposition Clinical Impression: Slurred speech, Weakness, Multiple falls, Head injury Disposition: Admitted As Inpatient Condition: Fair General Adult HPI - General Chief complaint: ED Fall Stated complaint: head injury Time Seen by Provider: 08/15/17 21:59 Source: patient Mode of arrival: ambulatory Limitations: no limitations - Related Data Home Medications Medication Instructions Recorded Confirmed Ascorbic Acid [Vitamin C] 500 mg PO DAILY 03/09/16 08/16/17 Aspirin 325 mg PO DAILY 03/09/16 08/16/17 Losartan/Hydrochlorothiazide 1 each PO DAILY 03/09/16 08/16/17 [Hyzaar 100-25 Tablet] NIFEdipine [Afeditab Cr] 120 mg PO DAILY 03/09/16 08/16/17 cloNIDine HCl [CloNIDine HCl] 0.15 mg PO HS 03/09/16 08/16/17 Atorvastatin [Lipitor] 10 mg PO HS 07/17/17 08/16/17 Previous Rx's Medication Instructions Recorded Clopidogrel [Plavix] 75 mg PO DAILY tablet 07/22/17 Allergies Allergy/AdvReac Type Severity Reaction Status Date / Time sertraline AdvReac Unknown Verified 03/09/16 18:49 Past Medical History - Past Medical History Medical history: Reports: cancer, CVA, hypertension, other Surgical history: Reports: no surgical history Psychiatric history: Reports: anxiety, depression - Social History Smoking Status: Never smoker Smokeless Tobacco Status: No Alcohol use: Reports: none Drug use: Reports: none Physical Exam - General Limitations: no limitations Course Vital Signs Temperature 98.4 F 08/15/17 22:32 Pulse Rate 81 08/15/17 22:32 Respiratory Rate 17 08/15/17 22:32 Blood Pressure 141/83 08/15/17 22:32 O2 Sat by Pulse Oximetry 98 08/15/17 22:32 Temperature 98.0 F 08/17/17 11:18 Pulse Rate 65 08/17/17 11:18 Respiratory Rate 16 08/17/17 11:18 Blood Pressure 160/98 08/17/17 11:18 O2 Sat by Pulse Oximetry 98 08/17/17 11:18 Oxygen Delivery Oxygen Delivery Room Air Medical Decision Making - Lab Data Result diagrams: 08/17/17 04:27 08/17/17 04:27 Lab Results 08/15/17 08/15/17 08/15/17 Range/Units 22:44 22:44 22:44 WBC 8.7 (4.3-11.1) K/mcL RBC 4.23 (4.19-5.50) M/mcL Hgb 13.0 (12.9-16.9) g/dL Hct 38.1 (37.5-50.1) % MCV 90.1 (83.0-100.0) fL MCH 30.7 (28.0-33.3) pg MCHC 34.1 (31.6-35.5) g/dL RDW 12.9 (11.5-14.5) % Plt Count 192 (140-400) K/mcL MPV 10.6 (9.4-12.4) fL Immature Gran % 0.5 (0-4) % Seg Neutrophils % 61.4 % Lymphocytes % 22.0 % Monocytes % 10.9 % Eosinophils % 4.6 % Basophils % 0.6 % Neutrophils # 5.3 (1.6-8.9) K/mcL Lymphocytes # 1.9 (0.6-4.6) K/mcL Monocytes # 1.0 (0.0-1.3) K/mcL Eosinophils # 0.4 (0.0-0.6) K/mcL Basophils # 0.1 (0.0-0.2) K/mcL PT 11.5 (9.4-12.1) Seconds INR 1.1 APTT 33.1 (26.0-36.0) Seconds Sodium 139 (136-145) mEq/L Potassium 3.3 L (3.5-5.1) mEq/L Chloride 103 (98-107) mEq/L Carbon Dioxide 28 (23-29) mEq/L BUN 41 H (8-23) mg/dL Creatinine 1.25 (0.70-1.30) mg/dL Est GFR ( Amer) > 60 (> 60) Est GFR (Non-Af Amer) 55 L (> 60) BUN/Creatinine Ratio 33 H (6-26) Glucose 121 H (70-105) mg/dL Calculated Osmolality 299 (280-300) Calcium 9.6 (8.6-10.3) mg/dL Troponin I < 0.03 (< 0.04) ng/mL Urine Color (Yellow) Urine Clarity (Clear) Urine pH (5.0-8.0) pH Units Ur Specific [place] (1.010-1.025) Urine Protein (Neg-Trace) mg/dL Urine Glucose (UA) (Normal) mg/dL Urine Ketones (Negative) mg/dL Urine Blood (Negative) Urine Nitrite (Negative) Urine Bilirubin (Negative) Urine Urobilinogen (Normal) mg/dL Ur Leukocyte Esterase (Negative) Urine Microscopic RBC (0-3) per hpf Urine Microscopic WBC (0-3) per hpf Ur Squamous Epith Cells (None-Few) per lpf Urine Bacteria (None-Few) per hpf Hyaline Casts (None-Few) per lpf Ur Culture Indicated? (NO) 08/15/17 Range/Units 23:26 WBC (4.3-11.1) K/mcL RBC (4.19-5.50) M/mcL Hgb (12.9-16.9) g/dL Hct (37.5-50.1) % MCV (83.0-100.0) fL MCH (28.0-33.3) pg MCHC (31.6-35.5) g/dL RDW (11.5-14.5) % Plt Count (140-400) K/mcL MPV (9.4-12.4) fL Immature Gran % (0-4) % Seg Neutrophils % % Lymphocytes % % Monocytes % % Eosinophils % % Basophils % % Neutrophils # (1.6-8.9) K/mcL Lymphocytes # (0.6-4.6) K/mcL Monocytes # (0.0-1.3) K/mcL Eosinophils # (0.0-0.6) K/mcL Basophils # (0.0-0.2) K/mcL PT (9.4-12.1) Seconds INR APTT (26.0-36.0) Seconds Sodium (136-145) mEq/L Potassium (3.5-5.1) mEq/L Chloride (98-107) mEq/L Carbon Dioxide (23-29) mEq/L BUN (8-23) mg/dL Creatinine (0.70-1.30) mg/dL Est GFR ( Amer) (> 60) Est GFR (Non-Af Amer) (> 60) BUN/Creatinine Ratio (6-26) Glucose (70-105) mg/dL Calculated Osmolality (280-300) Calcium (8.6-10.3) mg/dL Troponin I (< 0.04) ng/mL Urine Color Yellow (Yellow) Urine Clarity Clear (Clear) Urine pH 6.0 (5.0-8.0) pH Units Ur Specific [place] 1.020 (1.010-1.025) Urine Protein Trace (Neg-Trace) mg/dL Urine Glucose (UA) Normal (Normal) mg/dL Urine Ketones Negative (Negative) mg/dL Urine Blood Negative (Negative) Urine Nitrite Negative (Negative) Urine Bilirubin Negative (Negative) Urine Urobilinogen Normal (Normal) mg/dL Ur Leukocyte Esterase Negative (Negative) Urine Microscopic RBC 0-3 (0-3) per hpf Urine Microscopic WBC 0-3 (0-3) per hpf Ur Squamous Epith Cells None Seen (None-Few) per lpf Urine Bacteria None Seen (None-Few) per hpf Hyaline Casts None Seen (None-Few) per lpf Ur Culture Indicated? NO (NO) Attestation Statement - Attestation Attestation: I examined this patient and my medical decision-making was reviewed with the Resident Physician. I agree with the documented findings, disposition and treatment plan as described except to the extent set forth below. Patient presents to the ED with chief complaint of weakness falls and slurred speech. Patient's family states it has been days since he has been normal. He was recently discharged from [facility] after being there for rehabilitation following another stroke. He has had multiple falls since Sunday. He is dragging his feet. Today his speech was slurred. He also has a history of a traumatic brain injury with intracranial hemorrhage. On examination she is awake alert. His speech is clear and understandable. No focal neurologic deficits. Area stroke workup. CT head. Likely admission as the patient is obviously not safe at home.
[2017-08-15 22:57] LABS: Basophils # 0.1 K/mcL (0.0-0.2); Basophils % 0.6 %; Eosinophils # 0.4 K/mcL (0.0-0.6); Eosinophils % 4.6 %; Hematocrit 38.1 % (37.5-50.1); Immature Granulocytes % 0.5 % (0-4); Lymphocytes # 1.9 K/mcL (0.6-4.6); Mean Corpuscular HGB Conc 34.1 g/dL (31.6-35.5); Mean Corpuscular Hemoglobin 30.7 pg (28.0-33.3); Mean Corpuscular Volume 90.1 fL (83.0-100.0); Mean Platelet Volume 10.6 fL (9.4-12.4); Monocytes % 10.9 %; Neutrophils # 5.3 K/mcL (1.6-8.9); Platelet Count 192 K/mcL (140-400); Red Blood Count 4.23 M/mcL (4.19-5.50); Red Cell Distribution Width 12.9 % (11.5-14.5); Segmented Neutrophils % 61.4 %
[2017-08-15 23:03] LABS: INR 1.1; Prothrombin Time 11.5 Seconds (9.4-12.1)
[2017-08-15 23:06] LABS: Activated Partial Thrombo Time 33.1 Seconds (26.0-36.0)
[2017-08-15 23:15] LABS: BUN/Creatinine Ratio 33 (6-26); Blood Urea Nitrogen 41 mg/dL (8-23); Calcium 9.6 mg/dL (8.6-10.3); Carbon Dioxide 28 mEq/L (23-29); Chloride 103 mEq/L (98-107); Glucose 121 mg/dL (70-105); Osmolality,Calculated 299 (280-300); Potassium 3.3 mEq/L (3.5-5.1); Sodium 139 mEq/L (136-145); eGFR For African Americans > 60 (> 60); eGFR For Non-African Americans 55 (> 60)
[2017-08-15 23:16] LABS: Troponin I < 0.03 ng/mL (< 0.04)
[2017-08-15 23:38] LABS: Bilirubin,Urine Negative (Negative); Blood,Urine Negative (Negative); Clarity,Urine Clear (Clear); Color,Urine Yellow (Yellow); Glucose,Urine (UA) Normal (Normal); Ketones,Urine Negative (Negative); Leukocyte Esterase,Urine Negative (Negative); Nitrite,Urine Negative (Negative); Protein,Urine Trace mg/dL (Neg-Trace); Urobilinogen,Urine Normal (Normal)
[2017-08-15 23:40] LABS: Bacteria,Urine None Seen per hpf (None-Few); Hyaline Casts,Urine None Seen per lpf (None-Few); RBC,Urine 0-3 per hpf (0-3); Squamous Epithelial Cell,Urine None Seen per lpf (None-Few); WBC,Urine 0-3 per hpf (0-3)
[2017-08-16] MEDS ORDERED: Naloxone 0.4 MG/ML INJ IVP PRN (02:09)
[2017-08-16] MEDS ORDERED: Acetaminophen 325 MG TABLET PO PRN (02:09)
[2017-08-16] MEDS ORDERED: Gadolinium Contrast Agent (WT Based) IV PRN (03:44)
--- NOTE | 2017-08-16 03:59 | Internal Med History&Physical ---
Date of Encounter: 08/16/17 Time of Encounter: 01:30 Internal Medicine - H&P: HPI Chief complaint: Slurred speech, falls at home Admitted From: Home Plans for Post Hospital Care: Transfer [facility] History of present illness: Mr. Evans is a 81 year old male Patient presented to the emergency room, after experiencing several falls at home as well as slurred speech. His family noticed that he was slurring his words and they were unable to understand him earlier today. This has now since resolved. He recently was discharged from an ECF, but he has been having falls that time. He says that he is unable to predict when they happen, whether he is in the bathroom, in the kitchen or even getting into his truck. He is aware that he should not be driving with this condition. He uses a cane to ambulate. He denies nausea, vomiting, abdominal pain and chest pain. He denies biting his tongue and he also denies seizure-like activity with these episodes. His family brought him to the emergency room because they were concerned about his slurred speech, however he is less concerned and would rather be home in his own bed. He has a history of stroke in the past and was transferred to [facility] for treatment at that time. In the emergency room a head CT showed multifocal small vessel ischemic changes, multiple old infarcts but no acute hemorrhage. He is to be admitted for further evaluation with an MRI in the morning, as well as physical therapy and occupational therapy consultations. Past Med Surg Social Fam HX - Past Medical History Medical history: cancer, CVA, hypertension, other Additional medical history: brain bleed Psychiatric history: anxiety, depression - Past Surgical History Surgical History: no surgical history Additional surgical history: brain sx. - Social History Smoking Status: Never smoker Smokeless Tobacco Status: No Alcohol use: none Drug use: none - Family History Brother Hx Family Cardiac Disorders: Yes Father Living Status: Hx Family Cardiac Disorders: Yes ([place]) Hx Family Respiratory Disorders: No Hx Family Cancer: Yes (colon) Hx Family GI Disorders: No Hx Family Genitourinary Disorders: No Hx Family Endocrine Disorder: No Hx Family Musculoskeletal Disorders: No Hx Family Neuromuscular Disorders: No Hx Family Neurologic Disorders: No Hx Family HEENT Disorders: No Hx Family Autoimmune Disorders: No Hx Family Reproductive Disorders: No Hx Family Psychosocial Disorders: No Hx Family Medical Disorders: No Mother Living Status: Hx Family Cardiac Disorders: No Hx Family Respiratory Disorders: No Hx Family Cancer: No Hx Family GI Disorders: No Hx Family Genitourinary Disorders: No Hx Family Endocrine Disorder: No Hx Family Musculoskeletal Disorders: No Hx Family Neuromuscular Disorders: No Hx Family Neurologic Disorders: No Hx Family HEENT Disorders: No Hx Family Autoimmune Disorders: No Hx Family Reproductive Disorders: No Hx Family Psychosocial Disorders: No Hx Family Medical Disorders: No Internal Medicine - H&P: Meds Ascorbic Acid [Vitamin C] 500 mg PO DAILY 03/09/16 [History] Aspirin 325 mg PO DAILY 03/09/16 [History] Losartan/Hydrochlorothiazide [Hyzaar 100-25 Tablet] 1 each PO DAILY 03/09/16 [ History] NIFEdipine [Afeditab Cr] 120 mg PO DAILY 03/09/16 [History] cloNIDine HCl [CloNIDine HCl] 0.15 mg PO HS 03/09/16 [History] Atorvastatin [Lipitor] 10 mg PO HS 07/17/17 [History] Tamsulosin [Flomax] 0.4 mg PO DAILY 07/17/17 [History] Clopidogrel [Plavix] 75 mg PO DAILY tablet 07/22/17 [Rx] 3 Allergy/AdvReac Type Severity Reaction Status Date / Time sertraline AdvReac Unknown Verified 03/09/16 18:49 All Systems PM: A 10-system review of systems was performed and is negative for pertinent findings except as documented above in the HPI. - Constitutional Vitals: Temp Pulse Resp BP Pulse Ox 98.0 F 68 16 148/93 95 08/16/17 01:41 08/16/17 01:41 08/16/17 01:41 08/16/17 01:41 08/16/17 01:41 General appearance: Present: A&O X 3, pleasant, no acute distress, answers questions appropriately - Head Head exam: Present: normal inspection Additional comments: Area of scar tissue on right side of head from previous brain surgery - Eye Eye exam: Present: EOMI, normal appearance - Neck Neck exam general surgery: Present: full ROM. Absent: tenderness - Respiratory Respiratory exam: Present: CTAB. Absent: rales, respiratory distress - Cardiovascular Cardiovascular exam: Present: RRR. Absent: diastolic murmur, systolic murmur - GI/Abdominal GI/Abdominal exam: Present: normal bowel sounds, soft. Absent: guarding - Extremities Exam Extremities exam: Present: warm, radial pulses palpable and symmetrical. Absent : calf tenderness, tenderness - Neurological Exam Neurological exam: Present: alert, CN II-XII intact, oriented X3, no focal deficits, strengths equal and symetr throughout. Absent: motor sensory deficit , pronater drift, facial droop, speech deficit - Skin Skin exam: Present: dry, normal color, warm Internal Med - H&P Results - Labs CBC & Chem 7: 08/15/17 22:44 08/15/17 22:44 - Stroke Contraindication Not Initiating IV-Tpa: Not Indicated - Symptoms Rapidly Improving - Assessment and plan (1) Slurred speech Current Visit: Yes Status: Acute Assessment and plan: Patient had slurred speech as noted by his family at home, however this is since resolved. CT of his head showed no acute hemorrhage. Patient will be admitted for observation and to get an MRI in the morning. Symptoms could be secondary to TIA versus stroke. He has had stroke in the past. MRI with and without contrast of the head in the morning Nothing by mouth until swallow safety confirmed (2) Multiple falls Current Visit: Yes Status: Acute Assessment and plan: Patient has had multiple falls at home, uses a cane to ambulate. Recently discharged from an ECF. Family is unsure about his safety, and would like possible placement in another ECF. Patient unsure what brings his falling episodes on, and they are unpredictable. These falls have been occurring for some time. Blood pressure within normal limits currently, electrolytes and kidney function also near or within normal limits. Patient is also not anemic and in physical exam he had good strength throughout. Patient takes several blood pressure medications as well as tamsulosin which could be contributing to this. The falls could also be a resulting sequela of his prior stroke. Orthostatic blood pressure checks Social work consult Physical therapy consult Occupational therapy consult Consider neurology consult. (3) History of stroke Current Visit: Yes Status: Acute Assessment and plan: Patient has a history of stroke in the past, treated at [facility]. Will resume medication when he is no longer nothing by mouth. Continue atorvastatin Continue Plavix Continue aspirin (4) BPH (benign prostatic hyperplasia) Current Visit: Yes Status: Acute Assessment and plan: Patient takes tamsulosin, which can lead to hypotension and weakness. Could be related to his frequent falls at home. Reevaluate restarting this medication at time of discharge. Qualifiers: Qualified Code(s): N40.1 - Benign prostatic hyperplasia with lower urinary tract symptoms (5) Hypertension Current Visit: No Status: Chronic Assessment and plan: Patient has history of hypertension, takes clonidine, nifedipine as well as Hyzaar. Low blood pressure from taking these medications can also lead to falls. Reevaluate restarting these medications at time of discharge. Qualifiers: Hypertension type: essential hypertension Qualified Code(s): I10 - Essential (primary) hypertension - Time Spent With Patient Total time spent is greater than 50% in coordination of care (as documented) at patient's floor/unit and/or counseling patient: Greater than 35 minutes
[2017-08-16 06:25] LABS: Hematocrit 38.8 % (37.5-50.1); Hemoglobin 13.3 g/dL (12.9-16.9); Mean Corpuscular HGB Conc 34.3 g/dL (31.6-35.5); Mean Corpuscular Hemoglobin 30.9 pg (28.0-33.3); Mean Corpuscular Volume 90.2 fL (83.0-100.0); Mean Platelet Volume 11.4 fL (9.4-12.4); Platelet Count 181 K/mcL (140-400)
[2017-08-16 06:44] LABS: BUN/Creatinine Ratio 32 (6-26); Blood Urea Nitrogen 35 mg/dL (8-23); Calcium 9.3 mg/dL (8.6-10.3); Carbon Dioxide 30 mEq/L (23-29); Chloride 104 mEq/L (98-107); Glucose 86 mg/dL (70-105); Osmolality,Calculated 297 (280-300); Potassium 3.5 mEq/L (3.5-5.1); Sodium 140 mEq/L (136-145); eGFR For African Americans > 60 (> 60); eGFR For Non-African Americans > 60 (> 60)
[2017-08-16] MEDS ORDERED: Aspirin 325 MG TABLET PO SCH (11:30)
--- NOTE | 2017-08-16 11:38 | Event Note ---
Date of Encounter: 08/16/17 Time of Encounter: 11:00 Patient was seen earlier this a.m. by hospitalist. Olivier patient is alert and appropriate neurologically he has been intact MRI did show new tiny foci of acute ischemia within both temporal lobes more prominent on the right. He is on Plavix and statin at this time. PTOT has very patient recommending rehabilitation. By replace speech recommending soft chopped diet. I did discuss the case with Dr. Alonso who will see the patient upon consult
--- NOTE | 2017-08-16 14:51 | Neurology - Consult Note ---
<Chris Lennon - Last Filed: 08/16/17 15:46> Date of Encounter: 08/16/17 Time of Encounter: 02:30 Assessment and Plan (1) Slurred speech Current Visit: Yes Status: Acute Resolved. Patient reports he intermittently has this symptom. Based on CTA findings patient likely is very perfusion dependent. MRI does show new areas of ischemia along with many old strokes. PT/OT consults ordered recommending rehab after discharge. Recommendation: permissive hypertension Continue ASA, Plavix, Lipitor Increase Lipitor to 40mg if tolerated. 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 (2) Multiple falls Current Visit: Yes Status: Acute Possibly related to poor perfusion. 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 Consider checking orthostatics. Falls sound mechanical in nature based on patient's descriptions. PT/OT on board recommendations appreciated. (3) History of stroke Current Visit: Yes Status: Acute Patient with multiple old strokes. (4) Personal history of epidural hemorrhage Current Visit: Yes Status: Resolved Patient had an epidural hematoma in [facility] of 2017 requiring transfer to [facility] and placement of karen hole. History of Present Illness HPI: Mr. Evans is a 81 year old male c PMHx of cancer, multiple CVA, hypertension , extra axial hematoma 03/24/16, presented to the [facility] for concerns of slurred speech and multiple falls since being discharged from [facility]. Patient reports he's had intermittent slurred speech. Denies current slurred speech. He reports he has had mutliple falls since coming home from SNF. Patient denies loc , prodrome, dizziness prior to falls. Reports falls are mechanical in nature. Patient reports generalized weakness, but symmetric, denies focal or one sided weakness. He denies numbness or tingling, changes in vision. MRI Showed: "New tiny foci of acute ischemia within both temporal lobes more prominent on the right. Stable focus of subacute ischemia within the deep white matter of the right frontal lobe. Old left temporal lobe infarct. Old bilateral cerebellar infarcts more numerous on the left. Severe chronic small vessel ischemic disease within the periventricular white matter and basal ganglia." CTA head neck from 07/17/17 showed: "No flow limiting stenosis seen of the cervical carotid or vertebral arteries. 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 This is most severely involving the MCAs bilaterally. Mild narrowing of the left posterior communicating artery." Barium Swallow today: "No evidence of aspiration. Flash transient penetration seen only with large sips of thin barium from a cup." Speech cleared for thin liquids. Past Med Surg Social Fam HX - Past Medical History Medical history: cancer, CVA, hypertension, other Additional medical history: brain bleed Psychiatric history: anxiety, depression - Past Surgical History Surgical History: no surgical history Additional surgical history: brain sx. - Social History Smoking Status: Never smoker Smokeless Tobacco Status: No Alcohol use: none Drug use: none - Family History Brother Hx Family Cardiac Disorders: Yes Father Living Status: Hx Family Cardiac Disorders: Yes ([place]) Hx Family Respiratory Disorders: No Hx Family Cancer: Yes (colon) Hx Family GI Disorders: No Hx Family Genitourinary Disorders: No Hx Family Endocrine Disorder: No Hx Family Musculoskeletal Disorders: No Hx Family Neuromuscular Disorders: No Hx Family Neurologic Disorders: No Hx Family HEENT Disorders: No Hx Family Autoimmune Disorders: No Hx Family Reproductive Disorders: No Hx Family Psychosocial Disorders: No Hx Family Medical Disorders: No Mother Living Status: Hx Family Cardiac Disorders: No Hx Family Respiratory Disorders: No Hx Family Cancer: No Hx Family GI Disorders: No Hx Family Genitourinary Disorders: No Hx Family Endocrine Disorder: No Hx Family Musculoskeletal Disorders: No Hx Family Neuromuscular Disorders: No Hx Family Neurologic Disorders: No Hx Family HEENT Disorders: No Hx Family Autoimmune Disorders: No Hx Family Reproductive Disorders: No Hx Family Psychosocial Disorders: No Hx Family Medical Disorders: No Medications and Allergies Ascorbic Acid [Vitamin C] 500 mg PO DAILY 03/09/16 [History] Aspirin 325 mg PO DAILY 03/09/16 [History] Losartan/Hydrochlorothiazide [Hyzaar 100-25 Tablet] 1 each PO DAILY 03/09/16 [ History] NIFEdipine [Afeditab Cr] 120 mg PO DAILY 03/09/16 [History] cloNIDine HCl [CloNIDine HCl] 0.15 mg PO HS 03/09/16 [History] Atorvastatin [Lipitor] 10 mg PO HS 07/17/17 [History] Clopidogrel [Plavix] 75 mg PO DAILY tablet 07/22/17 [Rx] 3 Allergy/AdvReac Type Severity Reaction Status Date / Time sertraline AdvReac Unknown Verified 03/09/16 18:49 All Systems: Except where noted in the HPI the remainder of the systems were reviewed and are negative Physical Examination - Vital Signs Vital Signs: Initial Vital Signs Temp Pulse Resp BP Pulse Ox 98.4 F 81 17 141/83 98 08/15/17 22:32 08/15/17 22:32 08/15/17 22:32 08/15/17 22:32 08/15/17 22:32 - Constitutional General appearance: comfortable - Neurologic Detailed motor examination: grossly full strength in all extremities, full strength in all major muscle groups Motor examination - right side: 4/5: hip flexors, tibialis Anterior, quadriceps , toe extension (EHL), plantarflexion, 5/5: deltoids, biceps, triceps, wrist flexion, wrist extension, online project manager Motor examination - left side: 4/5: hip flexors, quadriceps, tibialis Anterior, toe extension (EHL), plantarflexion, 5/5: deltoids, biceps, triceps, wrist flexion, wrist extension, online project manager Detailed sensory examination: intact, light touch Reflexes: Biceps: 2+ Mental Status Examination: awake, alert, oriented to person, oriented to place, oriented to time, follows commands appropriately, answers questions appropriately, no agnosia, no aphasia, no aproxia Cranial nerve examination: PERRL (pupil sluggish but equal bilateral), EOMI, visual santa intact, sensory to face intact, mastication intact, no facial asymmetry is present, no dysarthria, hearing is intact symmetrically, soft palate elevates bilaterally upon phonation, flexes SCM and trapezius muscles symmetrically with full power, tongue protrudes midline, no atrophy or facial fasiculations present Cerebellar examination: no dysmetria, performs finger to nose and heel to thomas symmetrically without ataxia, no difficulty with rapid alternating movements Results - Laboratory Findings CBC and BMP: 08/16/17 05:17 08/16/17 05:17 Abnormal lab findings: Abnormal lab results Carbon Dioxide 30 mEq/L (23-29) H 08/16/17 05:17 BUN 35 mg/dL (8-23) H 08/16/17 05:17 BUN/Creatinine Ratio 32 (6-26) H 08/16/17 05:17 Consult Discharge Plan - Plan [facility] Provider[facility] - <Darion Alonso I - Last Filed: 08/16/17 16:30> Date of Encounter: 08/16/17 Assessment and Plan (1) Slurred speech Current Visit: Yes Status: Acute Pt was seen and examined, my medical decision was reviewed with the Resident Physician, I agree with the documented findings, disposition and treatment plas as described except to the extent set forth below Patient recently had a stroke when he was admitted and had a complete workup including CT angiogram of the head that shows multiple intracranial stenosis predominantly in the MCA distribution, and likely the reason for these multiple infarctions that he keep having along with the blood pressure fluctuation. Patient has an history of bleed status post karen hole surgery in the past and now with multiple infarct the concern about other treatment options is very limited as is already on Plavix and ending and other antiplatelet agent may increase the risk of bleed or hemorrhagic conversion On the other hand with his significant intracranial stenosis he remain at risk for another stroke as he continued to have them despite being on antiplatelet therapy As he already had a CT injury of the head about a month ago do not think that repeating would give us any new information Suggest continue on current treatment options along with physical therapy evaluation keep him well hydrated and keep the blood pressure stable range Would likely need to be in a long-term assisted facility as he remain at a very high risk for a fall and may continue to be dizzy Darion Alonso MD History of Present Illness HPI: Mr. Evans is a 81 year old male All Systems: The remainder of the systems were reviewed and are negative Physical Examination - Vital Signs Vital Signs: Initial Vital Signs Temp Pulse Resp BP Pulse Ox 98.4 F 81 17 141/83 98 08/15/17 22:32 08/15/17 22:32 08/15/17 22:32 08/15/17 22:32 08/15/17 22:32 Results - Laboratory Findings CBC and BMP: 08/16/17 05:17 08/16/17 05:17 Abnormal lab findings: Abnormal lab results Carbon Dioxide 30 mEq/L (23-29) H 08/16/17 05:17 BUN 35 mg/dL (8-23) H 08/16/17 05:17 BUN/Creatinine Ratio 32 (6-26) H 08/16/17 05:17
[2017-08-17 04:52] LABS: Basophils # 0.1 K/mcL (0.0-0.2); Basophils % 0.8 %; Eosinophils # 0.3 K/mcL (0.0-0.6); Eosinophils % 2.8 %; Hematocrit 40.6 % (37.5-50.1); Hemoglobin 14.1 g/dL (12.9-16.9); Immature Granulocytes % 0.3 % (0-4); Lymphocytes # 1.8 K/mcL (0.6-4.6); Mean Corpuscular HGB Conc 34.7 g/dL (31.6-35.5); Mean Corpuscular Hemoglobin 31.1 pg (28.0-33.3); Mean Corpuscular Volume 89.6 fL (83.0-100.0); Mean Platelet Volume 10.8 fL (9.4-12.4); Monocytes # 0.6 K/mcL (0.0-1.3); Monocytes % 6.6 %; Neutrophils # 6.2 K/mcL (1.6-8.9); Platelet Count 180 K/mcL (140-400); Red Blood Count 4.53 M/mcL (4.19-5.50); Red Cell Distribution Width 12.7 % (11.5-14.5); Segmented Neutrophils % 69.5 %
[2017-08-17 05:08] LABS: BUN/Creatinine Ratio 28 (6-26); Blood Urea Nitrogen 30 mg/dL (8-23); Calcium 8.8 mg/dL (8.6-10.3); Carbon Dioxide 27 mEq/L (23-29); Chloride 106 mEq/L (98-107); Glucose 104 mg/dL (70-105); Osmolality,Calculated 296 (280-300); Potassium 3.8 mEq/L (3.5-5.1); Sodium 140 mEq/L (136-145); eGFR For African Americans > 60 (> 60); eGFR For Non-African Americans > 60 (> 60)
[2017-08-17] MEDS: Losartan/HCTZ 50-12.5 TABLET PO SCH (09:06)
[2017-08-17] MEDS: NIFEdipine XL (24 HR) 60 MG TAB.ER.24 PO SCH (09:06)
--- NOTE | 2017-08-17 09:11 | Neurology Progress Note ---
<Darion Alonso I - Last Filed: 08/17/17 11:09> Date of Encounter: 08/17/17 Time of Encounter: 07:35 Assessment and Plan (1) Slurred speech Current Visit: Yes Status: Acute Pt was seen and examined, my medical decision was reviewed with the Resident Physician, I agree with the documented findings, disposition and treatment plas as described except to the extent set forth below Darion Alonso MD Objective - Constitutional Vitals: Temp Pulse Resp BP Pulse Ox 98.0 F 63 15 178/99 99 08/17/17 06:36 08/17/17 06:36 08/17/17 06:36 08/17/17 06:36 08/17/17 09:20 Results - Laboratory Findings CBC and BMP: 08/17/17 04:27 08/17/17 04:27 Abnormal lab findings: Abnormal lab results BUN 30 mg/dL (8-23) H 08/17/17 04:27 BUN/Creatinine Ratio 28 (6-26) H 08/17/17 04:27 Consult Discharge Plan - Plan [facility] Provider[facility] - <Chris Lennon - Last Filed: 08/17/17 11:29> Date of Encounter: 08/17/17 Assessment and Plan (1) Slurred speech Current Visit: Yes Status: Acute Resolved. Patient reports he intermittently has this symptom. Based on CTA findings patient likely is very perfusion dependent. MRI does show new areas of ischemia along with many old strokes. PT/OT consults ordered recommending rehab after discharge. Recommendation: permissive hypertension Continue ASA, Plavix, Lipitor Increase Lipitor to 40mg if tolerated. Patient is safe for discharge to acute in patient rehab per PT recommendation. Continue current medical therapy. Neurology will sign off at this time. (2) Multiple falls Current Visit: Yes Status: Acute Possibly related to poor perfusion. 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 Consider checking orthostatics. Falls sound mechanical in nature based on patient's descriptions. PT/OT on board recommendations appreciated. (3) History of stroke Current Visit: Yes Status: Acute Patient with multiple old strokes. (4) Personal history of epidural hemorrhage Current Visit: Yes Status: Resolved Patient had an epidural hematoma in [facility] of 2017 requiring transfer to [facility] and placement of karen hole. Subjective Principal diagnosis: CVA Interval history: Patietn seen and examined at bedside. No acute events overnight. No slurred speech currently. Patient with no focal deficits, generalized weakness. Objective - Constitutional Vitals: Temp Pulse Resp BP Pulse Ox 98.0 F 63 15 178/99 99 08/17/17 06:36 08/17/17 06:36 08/17/17 06:36 08/17/17 06:36 08/17/17 06:36 General appearance: Present: A&O X 3, pleasant, no acute distress, answers questions appropriately - Neurological Exam Motor Examination: Present: grossly full strength in all extremities, full strength in all major muscle groups Motor examination - right side: 4/5: hip flexors, tibialis Anterior, quadriceps , toe extension (EHL), plantarflexion, 5/5: deltoids, biceps, triceps, wrist flexion, wrist extension, trimmer machine Motor examination - left side: 4/5: hip flexors, quadriceps, tibialis Anterior, toe extension (EHL), plantarflexion, 5/5: deltoids, biceps, triceps, wrist flexion, wrist extension, trimmer machine Sensation intact: Present: intact, light touch Reflexes: Biceps: 2+ Mental Status Examination: Present: awake, alert, oriented to person, oriented to place, oriented to time, follows commands appropriately, answers questions appropriately, no agnosia, no aphasia, no aproxia Cranial nerve examination: Present: PERRL (pupil sluggish but equal bilateral), EOMI, visual santa intact, sensory to face intact, mastication intact, no facial asymmetry is present, no dysarthria, hearing is intact symmetrically, soft palate elevates bilaterally upon phonation, flexes SCM and trapezius muscles symmetrically with full power, tongue protrudes midline, no atrophy or facial fasiculations present Cerebellar examination: Present: no dysmetria, performs finger to nose and heel to thomas symmetrically without ataxia, no difficulty with rapid alternating movements - Stroke Contraindication Not Initiating IV-Tpa: Not Indicated - Symptoms Rapidly Improving Results - Laboratory Findings CBC and BMP: 08/17/17 04:27 08/17/17 04:27 Abnormal lab findings: Abnormal lab results BUN 30 mg/dL (8-23) H 08/17/17 04:27 BUN/Creatinine Ratio 28 (6-26) H 08/17/17 04:27
--- NOTE | 2017-08-17 11:44 | Internal Med Progress Note ---
Date of Encounter: 08/17/17 Time of Encounter: 11:42 - Assessment and plan (1) Multiple falls Current Visit: Yes Status: Acute Assessment and plan: Patient has history of multiple falls at home he does use a cane to ambulate he was recently discharged from the [facility]. Check orthostatics PT and OT recommending rehabilitation inpatient -awaiting placement Neurology has been consulted suspect related to poor perfusion patient has stenosis in b/i MCA Continue with fall precautions (2) History of stroke Current Visit: Yes Status: Acute Assessment and plan: Patient has history of strokes continue with statin, Plavix (3) BPH (benign prostatic hyperplasia) Current Visit: Yes Status: Acute Assessment and plan: 1 patient takes tamsulosin this could be contributing to frequent falls as well since it can cause hypotension and weakness. Reevaluate resuming this medication at discharge Qualifiers: Lower urinary tract symptom presence: symptoms absent Qualified Code(s): N40.0 - Benign prostatic hyperplasia without lower urinary tract symptoms (4) Slurred speech Current Visit: Yes Status: Acute Assessment and plan: This is resolved at this time patient's back to baseline patient reports that this occurs to him intermittently Neurology has seen the patient-suspecting based upon CT findings patient's likely very proficient dependent MRI does not show any new areas of ischemia Neurology is recommending permissive hypertension continuing Plavix and Lipitor increase Lipitor to 40 if tolerated Patient is not on 2 antiplatelet due to history of spontaneous epidural hemorrhage (5) Hypertension Current Visit: No Status: Chronic Qualifiers: Hypertension type: essential hypertension Qualified Code(s): I10 - Essential (primary) hypertension (6) Personal history of epidural hemorrhage Current Visit: Yes Status: Resolved Assessment and plan: Patient had an epidural hematoma angioid 2017 Transfer to ICU and placement of bur holes - Time Spent With Patient Total time spent is greater than 50% in coordination of care (as documented) at patient's floor/unit and/or counseling patient: - Subjective Interval history: Patient seen and examined at bedside. Patient is sitting up in chair Denies any pain or discomfort. Neurologically intact. - Constitutional Vitals: Temp Pulse Resp BP Pulse Ox 98.0 F 65 16 160/98 98 08/17/17 11:18 08/17/17 11:18 08/17/17 11:18 08/17/17 11:18 08/17/17 11:18 General appearance: Present: A&O X 3, pleasant, no acute distress, answers questions appropriately - Head Head exam: Present: atraumatic, normocephalic - Eye Eye exam: Present: PERRL, conjuntiva pink, sclera anicteric Pupils: Present: PERRL - Neck Neck exam general surgery: Present: supple, trachea midline. Absent: lymphadenopathy - Respiratory Respiratory exam: Present: CTAB. Absent: accessory muscle use, rales, rhonchi, wheezes - Cardiovascular Cardiovascular exam: Present: RRR, +S1, +S2. Absent: diastolic murmur, gallop, rubs, systolic murmur - GI/Abdominal GI/Abdominal exam: Present: normal bowel sounds, soft, no peritoneal signs. Absent: distended, tenderness - Extremities Exam Extremities exam: Present: warm, radial pulses palpable and symmetrical. Absent : calf tenderness, cyanotic, pedal edema - Neurological Exam Neurological exam: Present: CN II-XII intact, oriented X3, no focal deficits. Absent: pronater drift, facial droop, speech deficit - Skin Skin exam: Present: dry, intact Internal Medicine: Result - Labs CBC & Chem 7: 08/17/17 04:27 08/17/17 04:27 Labs: Short CBC 08/17/17 Range/Units 04:27 WBC 8.9 (4.3-11.1) K/mcL Hgb 14.1 (12.9-16.9) g/dL Hct 40.6 (37.5-50.1) % Plt Count 180 (140-400) K/mcL Neutrophils # 6.2 (1.6-8.9) K/mcL BMP 08/17/17 04:27 Sodium 140 Potassium 3.8 Chloride 106 Carbon Dioxide 27 BUN 30 H Creatinine 1.07 Glucose 104 Calcium 8.8 - ABG Interpretation ABG results: PT/INR, D-dimer PT 11.5 Seconds (9.4-12.1) 08/15/17 22:44 - Impressions Impressions Videofluoroscopic Swallow 08/16/17 09:32 IMPRESSION: No evidence of aspiration. Flash transient penetration seen only with large sips of thin barium from a cup. Please see separate speech pathology report for full discussion of findings and recommendations. D/ / Juni Ramirez MD / Juni Ramirez MD Interpreting Provider: Juni Ramirez MD - Stroke Contraindication Not Initiating IV-Tpa: Not Indicated - Symptoms Rapidly Improving Consult Discharge Plan - Plan [facility]errals: [facility] [Primary Care Provider] -
[2017-08-17] MEDS: cloNIDine HCl 0.1 MG TABLET PO SCH (20:17)
[2017-08-18 04:51] LABS: Basophils # 0.1 K/mcL (0.0-0.2); Basophils % 0.9 %; Eosinophils # 0.4 K/mcL (0.0-0.6); Eosinophils % 5.6 %; Hematocrit 38.9 % (37.5-50.1); Hemoglobin 13.4 g/dL (12.9-16.9); Immature Granulocytes % 0.4 % (0-4); Lymphocytes # 1.7 K/mcL (0.6-4.6); Lymphocytes % 24.5 %; Mean Corpuscular HGB Conc 34.4 g/dL (31.6-35.5); Mean Corpuscular Hemoglobin 30.8 pg (28.0-33.3); Mean Corpuscular Volume 89.4 fL (83.0-100.0); Mean Platelet Volume 11.1 fL (9.4-12.4); Monocytes # 0.7 K/mcL (0.0-1.3); Monocytes % 9.5 %; Neutrophils # 4.1 K/mcL (1.6-8.9); Platelet Count 175 K/mcL (140-400); Red Blood Count 4.35 M/mcL (4.19-5.50); Red Cell Distribution Width 12.8 % (11.5-14.5); Segmented Neutrophils % 59.1 %
[2017-08-18 05:08] LABS: BUN/Creatinine Ratio 31 (6-26); Blood Urea Nitrogen 31 mg/dL (8-23); Calcium 8.8 mg/dL (8.6-10.3); Carbon Dioxide 28 mEq/L (23-29); Chloride 106 mEq/L (98-107); Glucose 105 mg/dL (70-105); Osmolality,Calculated 299 (280-300); Potassium 3.6 mEq/L (3.5-5.1); Sodium 141 mEq/L (136-145); eGFR For African Americans > 60 (> 60); eGFR For Non-African Americans > 60 (> 60)
[2017-08-18] MEDS: Losartan/HCTZ 50-12.5 TABLET PO SCH (09:43)
[2017-08-18] MEDS: NIFEdipine XL (24 HR) 60 MG TAB.ER.24 PO SCH (09:47)
--- NOTE | 2017-08-18 10:25 | Internal Med Progress Note ---
Date of Encounter: 08/18/17 Time of Encounter: 10:25 - Assessment and plan (1) Multiple falls Current Visit: Yes Status: Acute Assessment and plan: Patient has history of multiple falls at home he does use a cane to ambulate he was recently discharged from the [facility]. 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 Reevaluate resuming this medication at discharge Qualifiers: Lower urinary tract symptom presence: symptoms absent Qualified Code(s): N40.0 - Benign prostatic hyperplasia without lower urinary tract symptoms (4) Slurred speech Current Visit: Yes Status: Acute Assessment and plan: This is resolved at this time patient's back to baseline patient reports that this occurs to him intermittently Neurology has seen the patient-suspecting based upon CT findings patient's likely very proficient dependent MRI does not show any new areas of ischemia Neurology is recommending permissive hypertension continuing Plavix and Lipitor increase Lipitor to 40 if tolerated Patient is not on 2 antiplatelet due to history of spontaneous epidural hemorrhage (5) Hypertension Current Visit: No Status: Chronic Assessment and plan: Presently controlled we will continue with home medications Qualifiers: Hypertension type: essential hypertension Qualified Code(s): I10 - Essential (primary) hypertension (6) Personal history of epidural hemorrhage Current Visit: Yes Status: Resolved Assessment and plan: Patient had an epidural hematoma angioid 2017Transfer to ICU and placement of bur holes-stable at this time - Time Spent With Patient Total time spent is greater than 50% in coordination of care (as documented) at patient's floor/unit and/or counseling patient: - Subjective Interval history: Patient seen and examined at bedside. Patient is sitting up in chair Denies any pain or discomfort. Neurologically intact. - Constitutional Vitals: Temp Pulse Resp BP Pulse Ox 98.0 F 63 17 152/81 96 08/18/17 07:21 08/18/17 07:21 08/18/17 07:21 08/18/17 07:21 08/18/17 07:21 General appearance: Present: A&O X 3, pleasant, no acute distress, answers questions appropriately - Head Head exam: Present: atraumatic, normocephalic - Eye Eye exam: Present: PERRL, conjuntiva pink, sclera anicteric Pupils: Present: PERRL - Neck Neck exam general surgery: Present: supple, trachea midline. Absent: lymphadenopathy - Respiratory Respiratory exam: Present: CTAB. Absent: accessory muscle use, rales, rhonchi, wheezes - Cardiovascular Cardiovascular exam: Present: RRR, +S1, +S2. Absent: diastolic murmur, gallop, rubs, systolic murmur - GI/Abdominal GI/Abdominal exam: Present: normal bowel sounds, soft, no peritoneal signs. Absent: distended, tenderness - Extremities Exam Extremities exam: Present: warm, radial pulses palpable and symmetrical. Absent : calf tenderness, cyanotic, pedal edema - Neurological Exam Neurological exam: Present: CN II-XII intact, oriented X3, no focal deficits. Absent: pronater drift, facial droop, speech deficit - Skin Skin exam: Present: dry, intact Internal Medicine: Result - Labs CBC & Chem 7: 08/18/17 03:59 08/18/17 03:59 Labs: Short CBC 08/18/17 Range/Units 03:59 WBC 7.0 (4.3-11.1) K/mcL Hgb 13.4 (12.9-16.9) g/dL Hct 38.9 (37.5-50.1) % Plt Count 175 (140-400) K/mcL Neutrophils # 4.1 (1.6-8.9) K/mcL BMP 08/18/17 03:59 Sodium 141 Potassium 3.6 Chloride 106 Carbon Dioxide 28 BUN 31 H Creatinine 0.99 Glucose 105 Calcium 8.8 - ABG Interpretation ABG results: PT/INR, D-dimer PT 11.5 Seconds (9.4-12.1) 08/15/17 22:44 - Stroke Contraindication Not Initiating IV-Tpa: Not Indicated - Symptoms Rapidly Improving Consult Discharge Plan - Plan [facility]errals: [facility] [Primary Care Provider] -
[2017-08-18] MEDS: cloNIDine HCl 0.1 MG TABLET PO SCH (20:55)
[2017-08-19] MEDS: NIFEdipine XL (24 HR) 60 MG TAB.ER.24 PO SCH (08:23)
[2017-08-19] MEDS: Losartan/HCTZ 50-12.5 TABLET PO SCH (08:23)
--- NOTE | 2017-08-19 08:59 | Internal Med Progress Note ---
Date of Encounter: 08/19/17 Time of Encounter: 08:59 - Assessment and plan (1) Multiple falls Current Visit: Yes Status: Acute Assessment and plan: Patient has history of multiple falls at home he does use a cane to ambulate he was recently discharged from the [facility]. 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 Reevaluate resuming this medication at discharge-doing well at this time. Qualifiers: Lower urinary tract symptom presence: symptoms absent Qualified Code(s): N40.0 - Benign prostatic hyperplasia without lower urinary tract symptoms (4) Slurred speech Current Visit: Yes Status: Acute Assessment and plan: This is resolved at this time patient's back to baseline patient reports that this occurs to him intermittently Neurology has seen the patient-suspecting based upon CT findings patient's likely very proficient dependent MRI does not show any new areas of ischemia Neurology is recommending permissive hypertension continuing Plavix and Lipitor increase Lipitor to 40 if tolerated Patient is not on 2 antiplatelet due to history of spontaneous epidural hemorrhage Awaiting placement to inpatient rehabilitation (5) Hypertension Current Visit: No Status: Chronic Assessment and plan: Presently controlled we will continue with home medications Qualifiers: Hypertension type: essential hypertension Qualified Code(s): I10 - Essential (primary) hypertension (6) Personal history of epidural hemorrhage Current Visit: Yes Status: Resolved Assessment and plan: Patient had an epidural hematoma angioid 2017Transfer to ICU and placement of bur holes-stable at this time A voiding stool antiplatelet therapy due to history of spontaneous SDH in February 2016 - Time Spent With Patient Total time spent is greater than 50% in coordination of care (as documented) at patient's floor/unit and/or counseling patient: - Subjective Interval history: Patient seen and examined at bedside. Unchanged from yesterday. Denies any pain or discomfort awaiting rehabilitation placement - Constitutional Vitals: Temp Pulse Resp BP Pulse Ox 97.6 F 58 17 146/84 92 06/24/18 07:23 08/19/17 07:23 08/19/17 07:23 08/19/17 07:23 08/19/17 07:23 General appearance: Present: A&O X 3, pleasant, no acute distress, answers questions appropriately - Head Head exam: Present: atraumatic, normocephalic - Eye Eye exam: Present: PERRL, conjuntiva pink, sclera anicteric Pupils: Present: PERRL - Neck Neck exam general surgery: Present: supple, trachea midline. Absent: lymphadenopathy - Respiratory Respiratory exam: Present: CTAB. Absent: accessory muscle use, rales, rhonchi, wheezes - Cardiovascular Cardiovascular exam: Present: RRR, +S1, +S2. Absent: diastolic murmur, gallop, rubs, systolic murmur - GI/Abdominal GI/Abdominal exam: Present: normal bowel sounds, soft, no peritoneal signs. Absent: distended, tenderness - Extremities Exam Extremities exam: Present: warm, radial pulses palpable and symmetrical. Absent : calf tenderness, cyanotic, pedal edema - Neurological Exam Neurological exam: Present: CN II-XII intact, oriented X3, no focal deficits. Absent: pronater drift, facial droop, speech deficit - Skin Skin exam: Present: dry, intact Internal Medicine: Result - Labs CBC & Chem 7: 08/18/17 03:59 08/18/17 03:59 - ABG Interpretation ABG results: PT/INR, D-dimer PT 11.5 Seconds (9.4-12.1) 08/15/17 22:44 - Stroke Contraindication Not Initiating IV-Tpa: Not Indicated - Symptoms Rapidly Improving - VTE Documentation of Mechanical Device: Intermittent pneumatic compression device Consult Discharge Plan - Plan [facility]errals: [facility] [Primary Care Provider] -
[2017-08-19] MEDS: cloNIDine HCl 0.1 MG TABLET PO SCH (20:13)
[2017-08-20] MEDS: Losartan/HCTZ 50-12.5 TABLET PO SCH (08:38)
[2017-08-20] MEDS: NIFEdipine XL (24 HR) 60 MG TAB.ER.24 PO SCH (08:39)
--- NOTE | 2017-08-20 10:50 | Internal Med Progress Note ---
Date of Encounter: 08/20/17 Time of Encounter: 10:50 - Assessment and plan (1) Multiple falls Current Visit: Yes Status: Acute (2) History of stroke Current Visit: Yes Status: Acute (3) BPH (benign prostatic hyperplasia) Current Visit: Yes Status: Acute Qualifiers: Lower urinary tract symptom presence: symptoms absent Qualified Code(s): N40.0 - Benign prostatic hyperplasia without lower urinary tract symptoms (4) Slurred speech Current Visit: Yes Status: Acute (5) Hypertension Current Visit: No Status: Chronic Qualifiers: Hypertension type: essential hypertension Qualified Code(s): I10 - Essential (primary) hypertension (6) Personal history of epidural hemorrhage Current Visit: Yes Status: Resolved - Time Spent With Patient Total time spent is greater than 50% in coordination of care (as documented) at patient's floor/unit and/or counseling patient: - Subjective Interval history: Patient seen and examined at bedside. Unchanged from yesterday. Denies any pain or discomfort awaiting rehabilitation placement - Constitutional Vitals: Temp Pulse Resp BP Pulse Ox 97.6 F 70 17 166/90 97 08/20/17 08:07 08/20/17 08:07 08/20/17 08:07 08/20/17 08:07 08/20/17 08:07 General appearance: Present: A&O X 3, pleasant, no acute distress, answers questions appropriately Internal Medicine: Result - Labs CBC & Chem 7: 08/18/17 03:59 08/18/17 03:59 - ABG Interpretation ABG results: PT/INR, D-dimer PT 11.5 Seconds (9.4-12.1) 08/15/17 22:44 - Stroke Contraindication Not Initiating IV-Tpa: Not Indicated - Symptoms Rapidly Improving - VTE Documentation of Mechanical Device: Intermittent pneumatic compression device Consult Discharge Plan - Plan Referrals: [facility] [Primary Care Provider] -
--- NOTE | 2017-08-20 15:37 | Discharge Summary ---
- NOTES TO OUTPATIENT PROVIDER Notes to Outpatient Provider: Patient was seen for slurred speech which did resolve, and frequent falls neurology did see the patient recommending permissive hypertension continuation of aspirin Plavix and Lipitor increasing Lipitor to 40 mg inpatient rehabilitation Orders not resulted at time of discharge: Pending orders 08/16/17 03:23 Bedside Swallowing Evaluation [EVAL] Routine Date of Encounter: 08/20/17 Time of Encounter: 15:33 - Discharge Diagnosis (1) Multiple falls Priority: Primary Status: Acute (2) History of stroke Priority: Secondary Status: Acute (3) BPH (benign prostatic hyperplasia) Priority: Secondary Status: Acute Qualifiers: Lower urinary tract symptom presence: symptoms absent Qualified Code(s): N40.0 - Benign prostatic hyperplasia without lower urinary tract symptoms (4) Slurred speech Priority: Secondary Status: Acute (5) Hypertension Priority: Secondary Status: Chronic Qualifiers: Hypertension type: essential hypertension Qualified Code(s): I10 - Essential (primary) hypertension (6) Personal history of epidural hemorrhage Priority: Secondary Status: Resolved Hospital course: Mr. Evans is a 81 year old male past medical history of CVA hypertension cancer BPH epidural hemorrhage 2016. Patient presented to [facility] for current concerns of slurred speech and multiple falls since being discharged from [facility]. MRI did show "new tiny foci of acute ischemia within both temporal lobe more prominent on the right. Stable focus of subacute ischemia within the deep white matter of the right frontal lobe. Old left temporal lobe infarct. Old bilateral cerebellar infarcts more numerous on the left. Severe chronic small vessel ischemia disease within the periventricular white matter and basal ganglia." CTA head neck from 07/17/17 showed: "No flow limiting stenosis seen of the cervical carotid or vertebral arteries. 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 This is most severely involving the MCAs bilaterally. Mild narrowing of the left posterior communicating artery." Neurology previously recommending medical treatment because he has quite significant intracranial atherosclerosis that are not intervenable note 07/17/17- He was seen by neurology recommending continuation of antiplatelets and Lipitor. Increasing Lipitor to 40 tolerated. Patient does have a history of epidural hemorrhage-we will avoid dual antiplatelet this time continue with Plavix orthostatics are within normal limits-carotids duplex completed approximately month ago which have minimal plaque throughout echo completed 07/17 EF 60-65% with no evidence of PFO patient was evaluated by PT OT recommending inpatient rehabilitation. I did advise the patient to follow-up with primary care provider. Patient is hemodynamically stable and is ready for discharge. - Time Spent with Patient Total time spent providing and/or coordinating discharge services: - Discharge Medications Home Medications: Ascorbic Acid [Vitamin C] 500 mg PO DAILY 03/09/16 [History] Losartan/Hydrochlorothiazide [Hyzaar 100-25 Tablet] 1 each PO DAILY 03/09/16 [ History] NIFEdipine [Afeditab Cr] 120 mg PO DAILY 03/09/16 [History] cloNIDine HCl [CloNIDine HCl] 0.15 mg PO HS 03/09/16 [History] Clopidogrel [Plavix] 75 mg PO DAILY tablet 07/22/17 [Rx] Atorvastatin [Lipitor] 40 mg PO HS tablet 08/20/17 [Rx] Allergies/Adverse Reactions: 3 Allergy/AdvReac Type Severity Reaction Status Date / Time sertraline AdvReac Unknown Verified 03/09/16 18:49 Date of admission: 08/16/17 00:15 [facility] care physician: [facility] Consults: 08/16/17 03:18 Consult to [facility] [employer] [CONS] Routine Reason for SW Consult: Possible assisted placement. 08/16/17 03:20 Consult to Physical Therapy [CONS] Routine Comment: Evaluate, develop and implement POC Reason for Consult: Falls at home, recently discharged from an ECF. Does patient have active BEDREST order?: No Is patient medically & hemodynamically stable?: Yes 08/16/17 03:21 Consult to Occupational Therapy [CONS] Routine Comment: Evaluate, develop and implement POC Reason for Consult: Help prevent falls at home, ADLs Does patient have active BEDREST order?: No Is patient medically & hemodynamically stable?: Yes 08/16/17 03:23 Consult to Speech Therapy [CONS] Routine Comment: Evaluate, develop and implement POC Reason for Consult: Patient has history of stroke, had slurred speech day of admission. Call Completed: No 08/16/17 13:11 Consult to Neurology [CONS] Routine Consulting Provider: Neurology [facility] Reason for Consult: CVA Time Notified: 13:12 Call Completed: Yes Discharging clinician: Sultana King Anticipated date of discharge: 08/20/17 - Constitutional Vitals: Temp Pulse Resp BP Pulse Ox 97.6 F 65 18 159/83 98 08/20/17 11:32 08/20/17 11:32 08/20/17 11:32 08/20/17 11:32 08/20/17 11:32 General appearance: Present: A&O X 3, pleasant, no acute distress, answers questions appropriately - Head Head exam: Present: atraumatic, normocephalic - Eye Eye exam: Present: PERRL, conjuntiva pink, sclera anicteric Pupils: Present: PERRL - Neck Neck exam general surgery: Present: supple, trachea midline. Absent: lymphadenopathy - Respiratory Respiratory exam: Present: CTAB. Absent: accessory muscle use, rales, rhonchi, wheezes - Cardiovascular Cardiovascular exam: Present: RRR, +S1, +S2. Absent: diastolic murmur, gallop, rubs, systolic murmur - GI/Abdominal GI/Abdominal exam: Present: normal bowel sounds, soft, no peritoneal signs. Absent: distended, tenderness - Extremities Exam Extremities exam: Present: warm, radial pulses palpable and symmetrical. Absent : calf tenderness, cyanotic, pedal edema - Neurological Exam Neurological exam: Present: CN II-XII intact, oriented X3, no focal deficits. Absent: pronater drift, facial droop, speech deficit - Skin Skin exam: Present: dry, intact - Patient Status Disposition: Transfer SNF Condition: Fair Functional capacity at discharge: independent ambulation Overall status at discharge: patient is back to baseline - Discharge Instructions [facility] With: [facility] [Primary Care Provider[facility] - - Diet and Activity Activity: as per physical therapy Diet: advance to your usual diet - Stroke Contraindication Not Initiating IV-Tpa: Not Indicated - Symptoms Rapidly Improving - VTE Documentation of Mechanical Device: Intermittent pneumatic compression device
[2017-08-20 16:21] VITALS: BP 130/71
--- NOTE | 2017-08-20 17:00 | Physician Discharge Referral ---
ExtendedCare Referral Info Transfer To: [facility] Provider in Charge: Sultana King Provider in Charge after Transfer: PCP Institutional Level of Care: Skilled - Diagnosis (1) Multiple falls Priority: Primary Status: Acute (2) History of stroke Priority: Secondary Status: Acute (3) BPH (benign prostatic hyperplasia) Priority: Secondary Status: Acute (4) Slurred speech Priority: Secondary Status: Acute (5) Hypertension Priority: Secondary Status: Chronic (6) Personal history of epidural hemorrhage Priority: Secondary Status: Resolved Prognosis: Good Aware of Diagnosis: Patient Aware of Prognosis: Patient - Transfer Medications Home Medications: Ascorbic Acid [Vitamin C] 500 mg PO DAILY 03/09/16 [History] Losartan/Hydrochlorothiazide [Hyzaar 100-25 Tablet] 1 each PO DAILY 03/09/16 [ History] NIFEdipine [Afeditab Cr] 120 mg PO DAILY 03/09/16 [History] cloNIDine HCl [CloNIDine HCl] 0.15 mg PO HS 03/09/16 [History] Clopidogrel [Plavix] 75 mg PO DAILY tablet 07/22/17 [Rx] Atorvastatin [Lipitor] 40 mg PO HS tablet 08/20/17 [Rx] Allergies/Adverse Reactions: 3 Allergy/AdvReac Type Severity Reaction Status Date / Time sertraline AdvReac Unknown Verified 03/09/16 18:49 - Respiratory Orders Smoking Cessation: Smoking cessation has been advised. For more information, call the [place] Tobacco Quit Line at 2-866-EUEPNOW. - Mobility Orders Ambulate - Rehabiliation Orders Rehab Potential: Good - Diet Orders Cardiac CERTIFICATION: I certify that the transfer of the above named patient to an Extended Care Facility is necessary for the continuing treatment of the diagnosis listed. The above information is true and accurate reflection of patient's current condition. Confidential - Redisclosure prohibited without a patient's written consent.
== END 2017-08-20 18:01 ==
LOC: 3BNU 21:56 → EMEROO 21:56 → 3BNU 08-16 01:33
PROVIDERS: ADMIT Internal Medicine; ATTEND Internal Medicine

== ENCOUNTER 2019-07-11 06:51 | Inpatient (IN) ==
[2019-07-11 07:11] LABS: Basophils # 0.1 K/mcL (0.0-0.2); Basophils % 0.7 %; Eosinophils # 0.3 K/mcL (0.0-0.6); Eosinophils % 3.6 %; Hematocrit 41.3 % (37.5-50.1); Hemoglobin 13.5 g/dL (12.9-16.9); Immature Granulocytes % 0.2 % (0-4); Lymphocytes # 2.2 K/mcL (0.6-4.6); Lymphocytes % 27.3 %; Mean Corpuscular HGB Conc 32.7 g/dL (31.6-35.5); Mean Corpuscular Hemoglobin 30.5 pg (28.0-33.3); Mean Corpuscular Volume 93.4 fL (83.0-100.0); Mean Platelet Volume 10.2 fL (9.4-12.4); Monocytes # 0.7 K/mcL (0.0-1.3); Monocytes % 8.7 %; Neutrophils # 4.8 K/mcL (1.6-8.9); Platelet Count 173 K/mcL (140-400); Red Blood Count 4.42 M/mcL (4.19-5.50); Red Cell Distribution Width 12.6 % (11.5-14.5); Segmented Neutrophils % 59.5 %; White Blood Count 8.1 K/mcL (4.3-11.1)
[2019-07-11] MEDS ORDERED: 0.9 % Sodium Chloride 1,000 ML IVC ONE (07:30)
[2019-07-11 07:35] LABS: Alanine Aminotransferase 22 Units/L (7-52); Albumin 4.4 g/dL (3.5-5.7); Albumin/Globulin Ratio 1.9 (1.1-2.2); Alkaline Phosphatase 43 Units/L (34-104); Aspartate Amino Transferase 19 Units/L (13-39); BUN/Creatinine Ratio 34 (6-26); Bilirubin,Total 0.5 mg/dL (0.3-1.0); Blood Urea Nitrogen 41 mg/dL (8-23); Calcium 9.6 mg/dL (8.6-10.3); Carbon Dioxide 31 mEq/L (23-29); Chloride 105 mEq/L (98-107); Globulin 2.3 g/dL (2.4-3.5); Glucose 104 mg/dL (70-105); Osmolality,Calculated 306 (280-300); Potassium 3.7 mEq/L (3.5-5.1); Sodium 143 mEq/L (136-145); Total Protein 6.7 g/dL (6.4-8.9); eGFR For African Americans > 60 (> 60); eGFR For Non-African Americans 58 (> 60)
[2019-07-11 07:55] LABS: Troponin I 0.06 ng/mL (< 0.04)
[2019-07-11] MEDS ORDERED: Aspirin 81 MG TAB.CHEW PO STA (07:55)
[2019-07-11] MEDS ORDERED: Ondansetron 4 MG/2 ML VIAL IVP PRN (09:14)
[2019-07-11] MEDS ORDERED: Naloxone 0.4 MG/ML INJ IVP PRN (09:14)
[2019-07-11 09:32] LABS: Bilirubin,Urine Negative (Negative); Blood,Urine Negative (Negative); Clarity,Urine Clear (Clear); Color,Urine Yellow (Yellow); Glucose,Urine (UA) Normal (Normal); Ketones,Urine Negative (Negative); Leukocyte Esterase,Urine Negative (Negative); Nitrite,Urine Negative (Negative); Protein,Urine Negative (Neg-Trace); Specific Gravity,Urine 1.013 (1.010-1.025); Urobilinogen,Urine Normal (Normal)
[2019-07-11] MEDS: cloNIDine HCL 0.1 MG TABLET PO SCH (22:08)
[2019-07-12 06:52] LABS: Basophils # 0.1 K/mcL (0.0-0.2); Basophils % 1.1 %; Eosinophils # 0.4 K/mcL (0.0-0.6); Eosinophils % 4.8 %; Hematocrit 38.5 % (37.5-50.1); Immature Granulocytes % 0.4 % (0-4); Lymphocytes # 1.8 K/mcL (0.6-4.6); Mean Corpuscular HGB Conc 33.8 g/dL (31.6-35.5); Mean Corpuscular Volume 91.9 fL (83.0-100.0); Mean Platelet Volume 10.5 fL (9.4-12.4); Monocytes # 0.6 K/mcL (0.0-1.3); Monocytes % 8.1 %; Neutrophils # 4.9 K/mcL (1.6-8.9); Platelet Count 152 K/mcL (140-400); Red Blood Count 4.19 M/mcL (4.19-5.50); Red Cell Distribution Width 12.6 % (11.5-14.5); Segmented Neutrophils % 62.6 %; White Blood Count 7.9 K/mcL (4.3-11.1)
[2019-07-12 07:12] LABS: BUN/Creatinine Ratio 29 (6-26); Blood Urea Nitrogen 35 mg/dL (8-23); Calcium 8.9 mg/dL (8.6-10.3); Carbon Dioxide 29 mEq/L (23-29); Chloride 104 mEq/L (98-107); Glucose 95 mg/dL (70-105); Osmolality,Calculated 296 (280-300); Potassium 3.7 mEq/L (3.5-5.1); Sodium 139 mEq/L (136-145); eGFR For African Americans > 60 (> 60); eGFR For Non-African Americans 57 (> 60)
[2019-07-12] MEDS: Aspirin 81 MG TAB.CHEW PO SCH (10:04)
[2019-07-12] MEDS: NIFEdipine XL (24 HR) 60 MG TAB.ER.24 PO SCH (10:04)
[2019-07-12] MEDS: Ascorbic Acid 500 MG TABLET PO SCH (10:04)
[2019-07-12] MEDS: cloNIDine HCL 0.1 MG TABLET PO SCH (21:53)
[2019-07-13] MEDS: Aspirin 81 MG TAB.CHEW PO SCH (08:37)
[2019-07-13] MEDS: NIFEdipine XL (24 HR) 60 MG TAB.ER.24 PO SCH (08:37)
[2019-07-13] MEDS: Ascorbic Acid 500 MG TABLET PO SCH (08:37)
[2019-07-13] MEDS ORDERED: Isovue-370 500 ML BOTTLE IVP ONE (13:10)
[2019-07-13] MEDS: cloNIDine HCL 0.1 MG TABLET PO SCH (21:29)
[2019-07-14] MEDS: Ascorbic Acid 500 MG TABLET PO SCH (09:17)
[2019-07-14] MEDS: Aspirin 81 MG TAB.CHEW PO SCH (09:17)
[2019-07-14] MEDS: NIFEdipine XL (24 HR) 60 MG TAB.ER.24 PO SCH (09:17)
[2019-07-14 14:48] VITALS: BP 157/90
== END 2019-07-14 18:42 | DRG 65 ==
LOC: EMEROOARM 06:51 → 3BNU 06:51 → SUATTDRO 15:35
PROVIDERS: ADMIT Internal Medicine; ATTEND Internal Medicine

== ENCOUNTER 2019-08-05 21:58 | Inpatient (IN) ==
[2019-08-05 22:32] LABS: Basophils # 0.1 K/mcL (0.0-0.2); Basophils % 0.5 %; Eosinophils # 0.2 K/mcL (0.0-0.6); Eosinophils % 1.8 %; Hematocrit 37.8 % (37.5-50.1); Hemoglobin 12.5 g/dL (12.9-16.9); Immature Granulocytes % 0.3 % (0-4); Lymphocytes # 1.1 K/mcL (0.6-4.6); Lymphocytes % 10.8 %; Mean Corpuscular HGB Conc 33.1 g/dL (31.6-35.5); Mean Corpuscular Hemoglobin 30.4 pg (28.0-33.3); Mean Platelet Volume 10.9 fL (9.4-12.4); Monocytes # 0.8 K/mcL (0.0-1.3); Monocytes % 8.1 %; Platelet Count 205 K/mcL (140-400); Red Blood Count 4.11 M/mcL (4.19-5.50); Segmented Neutrophils % 78.5 %; White Blood Count 10.1 K/mcL (4.3-11.1)
[2019-08-05 22:40] LABS: INR 1.1; Prothrombin Time 12.5 Seconds (9.4-12.1)
[2019-08-05 22:43] LABS: Activated Partial Thrombo Time 32.2 Seconds (26.0-36.0)
[2019-08-05 22:54] LABS: Alanine Aminotransferase 26 Units/L (7-52); Albumin 4.1 g/dL (3.5-5.7); Albumin/Globulin Ratio 1.8 (1.1-2.2); Alkaline Phosphatase 40 Units/L (34-104); Aspartate Amino Transferase 20 Units/L (13-39); BUN/Creatinine Ratio 27 (6-26); Bilirubin,Total 0.5 mg/dL (0.3-1.0); Blood Urea Nitrogen 35 mg/dL (8-23); Calcium 9.3 mg/dL (8.6-10.3); Carbon Dioxide 27 mEq/L (23-29); Chloride 105 mEq/L (98-107); Creatine Kinase 66 Units/L (30-223); Globulin 2.3 g/dL (2.4-3.5); Glucose 151 mg/dL (70-105); Osmolality,Calculated 303 (280-300); Potassium 3.7 mEq/L (3.5-5.1); Sodium 141 mEq/L (136-145); Total Protein 6.4 g/dL (6.4-8.9); Troponin I < 0.03 ng/mL (< 0.04); eGFR For African Americans > 60 (> 60); eGFR For Non-African Americans 53 (> 60)
[2019-08-05 23:20] LABS: Bilirubin,Urine Negative (Negative); Blood,Urine Negative (Negative); Clarity,Urine Clear (Clear); Color,Urine Yellow (Yellow); Glucose,Urine (UA) Normal (Normal); Ketones,Urine Negative (Negative); Leukocyte Esterase,Urine Negative (Negative); Nitrite,Urine Negative (Negative); Protein,Urine 30 mg/dL (Neg-Trace); Specific Gravity,Urine 1.016 (1.010-1.025); Urobilinogen,Urine Normal (Normal)
[2019-08-05 23:45] LABS: Hyaline Casts,Urine Moderate per lpf (None-Few)
[2019-08-05 23:46] LABS: Squamous Epithelial Cell,Urine Few per lpf (None-Few)
[2019-08-05 23:47] LABS: Bacteria,Urine None Seen per hpf (None-Few); Mucus,Urine Few per lpf (None-Few); RBC,Urine 0-3 per hpf (0-3); WBC,Urine 0-3 per hpf (0-3)
[2019-08-06] MEDS ORDERED: 0.9 % Sodium Chloride 1,000 ML IVC ONE (00:03)
[2019-08-06] MEDS ORDERED: *HR* Promethazine 25 MG/ML VIAL IVP PRN (04:05)
[2019-08-06] MEDS ORDERED: Naloxone 0.4 MG/ML INJ IVP PRN (04:05)
[2019-08-06] MEDS ORDERED: Acetaminophen 325 MG TABLET PO PRN (04:05)
[2019-08-06] MEDS: 0.9 % Sodium Chloride 1,000 ML IVC SCH ×2 (05:10→13:46)
[2019-08-06 08:22] LABS: Basophils # 0.1 K/mcL (0.0-0.2); Basophils % 0.6 %; Eosinophils # 0.3 K/mcL (0.0-0.6); Eosinophils % 3.6 %; Hematocrit 38.3 % (37.5-50.1); Hemoglobin 12.2 g/dL (12.9-16.9); Immature Granulocytes % 0.4 % (0-4); Lymphocytes # 1.9 K/mcL (0.6-4.6); Mean Corpuscular HGB Conc 31.9 g/dL (31.6-35.5); Mean Corpuscular Volume 94.1 fL (83.0-100.0); Mean Platelet Volume 10.8 fL (9.4-12.4); Monocytes # 0.8 K/mcL (0.0-1.3); Monocytes % 10.1 %; Neutrophils # 4.9 K/mcL (1.6-8.9); Platelet Count 195 K/mcL (140-400); Red Blood Count 4.07 M/mcL (4.19-5.50); Red Cell Distribution Width 12.9 % (11.5-14.5); Segmented Neutrophils % 61.3 %
[2019-08-06 08:41] LABS: BUN/Creatinine Ratio 28 (6-26); Blood Urea Nitrogen 29 mg/dL (8-23); Calcium 8.9 mg/dL (8.6-10.3); Carbon Dioxide 30 mEq/L (23-29); Chloride 106 mEq/L (98-107); Glucose 86 mg/dL (70-105); Magnesium 1.8 mg/dL (1.6-2.6); Osmolality,Calculated 299 (280-300); Potassium 3.2 mEq/L (3.5-5.1); Sodium 142 mEq/L (136-145); eGFR For African Americans > 60 (> 60); eGFR For Non-African Americans > 60 (> 60)
[2019-08-06] MEDS ORDERED: *HR* LORazepam 2 MG/ML VIAL IVP PRN (15:24)
[2019-08-06] MEDS: Losartan/HCTZ 50-12.5 TABLET PO SCH (15:57)
[2019-08-06] MEDS: NIFEdipine XL (24 HR) 60 MG TAB.ER.24 PO SCH (15:57)
[2019-08-06] MEDS: cloNIDine HCL 0.1 MG TABLET PO SCH (19:44)
[2019-08-07] MEDS ORDERED: *HR* LORazepam 2 MG/ML VIAL IVP ONE (01:05)
[2019-08-07 02:09] LABS: BUN/Creatinine Ratio 22 (6-26); Blood Urea Nitrogen 20 mg/dL (8-23); Calcium 9.3 mg/dL (8.6-10.3); Carbon Dioxide 25 mEq/L (23-29); Chloride 104 mEq/L (98-107); Glucose 91 mg/dL (70-105); Magnesium 1.7 mg/dL (1.6-2.6); Osmolality,Calculated 288 (280-300); Phosphorous 2.5 mg/dL (2.7-4.5); Potassium 3.4 mEq/L (3.5-5.1); Sodium 138 mEq/L (136-145); eGFR For African Americans > 60 (> 60); eGFR For Non-African Americans > 60 (> 60)
[2019-08-07] MEDS: Aspirin 325 MG TABLET PO SCH (14:12)
[2019-08-07] MEDS ORDERED: E-Z-PAQUE (BARIUM SULF) SUSP 1 BOTTLE PO ONE (14:13)
[2019-08-07] MEDS: Losartan/HCTZ 50-12.5 TABLET PO SCH (14:13)
[2019-08-07] MEDS: NIFEdipine XL (24 HR) 60 MG TAB.ER.24 PO SCH (14:13)
[2019-08-07] MEDS ORDERED: E-Z-HD (BARIUM SULF) SUSPENSION PO ONE (14:13)
[2019-08-07] MEDS: *HR* Heparin 5,000 UNIT/ML VIAL SQ SCH (18:04)
[2019-08-07] MEDS: cloNIDine HCL 0.1 MG TABLET PO SCH (20:54)
[2019-08-08 03:46] LABS: Basophils # 0.1 K/mcL (0.0-0.2); Basophils % 0.4 %; Eosinophils # 0.1 K/mcL (0.0-0.6); Eosinophils % 0.5 %; Hematocrit 42.1 % (37.5-50.1); Immature Granulocytes % 0.3 % (0-4); Lymphocytes # 1.5 K/mcL (0.6-4.6); Lymphocytes % 12.5 %; Mean Corpuscular HGB Conc 33.3 g/dL (31.6-35.5); Mean Corpuscular Hemoglobin 29.9 pg (28.0-33.3); Mean Platelet Volume 11.6 fL (9.4-12.4); Monocytes % 8.5 %; Neutrophils # 9.3 K/mcL (1.6-8.9); Platelet Count 224 K/mcL (140-400); Red Blood Count 4.68 M/mcL (4.19-5.50); Red Cell Distribution Width 12.5 % (11.5-14.5); Segmented Neutrophils % 77.8 %; White Blood Count 11.9 K/mcL (4.3-11.1)
[2019-08-08 04:03] LABS: BUN/Creatinine Ratio 25 (6-26); Blood Urea Nitrogen 26 mg/dL (8-23); Calcium 9.4 mg/dL (8.6-10.3); Carbon Dioxide 24 mEq/L (23-29); Chloride 102 mEq/L (98-107); Glucose 88 mg/dL (70-105); Magnesium 1.8 mg/dL (1.6-2.6); Osmolality,Calculated 290 (280-300); Phosphorous 3.2 mg/dL (2.7-4.5); Potassium 3.3 mEq/L (3.5-5.1); Sodium 138 mEq/L (136-145); eGFR For African Americans > 60 (> 60); eGFR For Non-African Americans > 60 (> 60)
[2019-08-08] MEDS: *HR* Heparin 5,000 UNIT/ML VIAL SQ SCH ×2 (05:33→15:56)
[2019-08-08] MEDS ORDERED: Potassium Chloride 20 MEQ, Lidocaine 1% 2 ML in 0.9 % Sodium Chloride 250 ML IVPB ONE (08:16)
[2019-08-08] MEDS: Aspirin 325 MG TABLET PO SCH (08:44)
[2019-08-08] MEDS: Ampicillin/Sulbactam 3,000 MG in 0.9 % Sodium Chloride Mini Bag 100 ML IVPB SCH ×2 (12:41→15:56)
[2019-08-08] MEDS ORDERED: *HR* Propofol 200 MG/20 ML VIAL IVP ONE (13:30)
[2019-08-08] MEDS ORDERED: Lidocaine -MPF 2% 2 ML VIAL ONE (13:30)
[2019-08-08] MEDS ORDERED: Haloperidol Lactate 5 MG/ML VIAL IM ONE (15:38)
[2019-08-08] MEDS: Pantoprazole 40 MG VIAL IVP SCH (17:55)
[2019-08-09] MEDS: cloNIDine HCL 0.1 MG TABLET PO SCH ×2 (00:26→20:53)
[2019-08-09 03:53] LABS: Basophils % 0.2 %; Hematocrit 39.4 % (37.5-50.1); Hemoglobin 13.1 g/dL (12.9-16.9); Immature Granulocytes % 0.5 % (0-4); Lymphocytes # 1.2 K/mcL (0.6-4.6); Lymphocytes % 8.9 %; Mean Corpuscular HGB Conc 33.2 g/dL (31.6-35.5); Mean Corpuscular Hemoglobin 30.5 pg (28.0-33.3); Mean Corpuscular Volume 91.8 fL (83.0-100.0); Mean Platelet Volume 11.2 fL (9.4-12.4); Monocytes # 0.9 K/mcL (0.0-1.3); Monocytes % 7.1 %; Platelet Count 201 K/mcL (140-400); Red Blood Count 4.29 M/mcL (4.19-5.50); Segmented Neutrophils % 83.3 %; White Blood Count 13.2 K/mcL (4.3-11.1)
[2019-08-09 04:09] LABS: BUN/Creatinine Ratio 28 (6-26); Blood Urea Nitrogen 35 mg/dL (8-23); Calcium 8.8 mg/dL (8.6-10.3); Carbon Dioxide 22 mEq/L (23-29); Chloride 105 mEq/L (98-107); Glucose 104 mg/dL (70-105); Magnesium 1.9 mg/dL (1.6-2.6); Osmolality,Calculated 298 (280-300); Potassium 3.3 mEq/L (3.5-5.1); Sodium 140 mEq/L (136-145); eGFR For African Americans > 60 (> 60); eGFR For Non-African Americans 56 (> 60)
[2019-08-09] MEDS: *HR* Heparin 5,000 UNIT/ML VIAL SQ SCH ×2 (05:25→17:51)
[2019-08-09] MEDS: Pantoprazole 40 MG VIAL IVP SCH (05:25)
[2019-08-09] MEDS: Ampicillin/Sulbactam 3,000 MG in 0.9 % Sodium Chloride Mini Bag 100 ML IVPB SCH ×5 (05:26→23:18)
[2019-08-09] MEDS: Aspirin 325 MG TABLET PO SCH (10:15)
[2019-08-10 01:28] LABS: Basophils % 0.3 %; Eosinophils % 0.1 %; Hematocrit 45.4 % (37.5-50.1); Immature Granulocytes % 0.3 % (0-4); Lymphocytes # 1.1 K/mcL (0.6-4.6); Lymphocytes % 7.7 %; Mean Corpuscular HGB Conc 33.3 g/dL (31.6-35.5); Mean Corpuscular Hemoglobin 30.6 pg (28.0-33.3); Mean Corpuscular Volume 91.9 fL (83.0-100.0); Mean Platelet Volume 11.7 fL (9.4-12.4); Monocytes # 1.1 K/mcL (0.0-1.3); Monocytes % 7.8 %; Platelet Count 230 K/mcL (140-400); Red Blood Count 4.94 M/mcL (4.19-5.50); Segmented Neutrophils % 83.8 %; White Blood Count 14.3 K/mcL (4.3-11.1)
[2019-08-10 01:30] LABS: Hemoglobin 15.1 g/dL (12.9-16.9)
[2019-08-10 01:45] LABS: Calcium 9.4 mg/dL (8.6-10.3); Potassium 3.1 mEq/L (3.5-5.1)
[2019-08-10] MEDS: Ampicillin/Sulbactam 3,000 MG in 0.9 % Sodium Chloride Mini Bag 100 ML IVPB SCH ×4 (04:49→23:33)
[2019-08-10] MEDS: *HR* Heparin 5,000 UNIT/ML VIAL SQ SCH ×2 (04:49→17:27)
[2019-08-10] MEDS: amLODIPine 5 MG TABLET PO SCH (08:15)
[2019-08-10] MEDS: Aspirin 325 MG TABLET PO SCH (08:15)
[2019-08-10] MEDS: Pantoprazole 40 MG VIAL IVP SCH (08:15)
[2019-08-10] MEDS ORDERED: 0.9 % Sodium Chloride 1,000 ML IVC SCH (09:30)
[2019-08-10] MEDS: cloNIDine HCL 0.1 MG TABLET PO SCH (21:47)
[2019-08-10] MEDS ORDERED: *HR* OxyCODONE Immed Rel 5 MG TABLET PO PRN (22:14)
[2019-08-11] MEDS: *HR* Heparin 5,000 UNIT/ML VIAL SQ SCH (05:38)
[2019-08-11] MEDS: Ampicillin/Sulbactam 3,000 MG in 0.9 % Sodium Chloride Mini Bag 100 ML IVPB SCH (05:38)
[2019-08-11 06:21] LABS: BUN/Creatinine Ratio 37 (6-26); Blood Urea Nitrogen 40 mg/dL (8-23); Calcium 8.7 mg/dL (8.6-10.3); Carbon Dioxide 29 mEq/L (23-29); Chloride 112 mEq/L (98-107); Glucose 163 mg/dL (70-105); Osmolality,Calculated 317 (280-300); Potassium 3.6 mEq/L (3.5-5.1); Sodium 147 mEq/L (136-145); eGFR For African Americans > 60 (> 60); eGFR For Non-African Americans > 60 (> 60)
[2019-08-11] MEDS: Aspirin 325 MG TABLET PO SCH (07:59)
[2019-08-11] MEDS: Pantoprazole 40 MG VIAL IVP SCH (07:59)
[2019-08-11] MEDS: amLODIPine 5 MG TABLET PO SCH (07:59)
[2019-08-11 08:57] VITALS: BP 148/76
== END 2019-08-11 14:48 | DRG 64 ==
LOC: EMEROOARM 21:58 → 3BNU 21:58 → SUATTDRO 08-06 02:56 → 3BNU 08-06 03:23 → SUATTDRO 08-07 13:33
PROVIDERS: ADMIT Internal Medicine; ATTEND Internal Medicine

== ENCOUNTER 2019-09-04 10:57 | Observation (INO) ==
[2019-09-04] MEDS ORDERED: Isovue-370 500 ML BOTTLE IVP ONE (10:59)
[2019-09-04 11:20] LABS: Hematocrit 37.9 % (37.5-50.1); Hemoglobin 12.8 g/dL (12.9-16.9); Mean Corpuscular HGB Conc 33.8 g/dL (31.6-35.5); Mean Corpuscular Hemoglobin 30.6 pg (28.0-33.3); Mean Corpuscular Volume 90.7 fL (83.0-100.0); Mean Platelet Volume 11.6 fL (9.4-12.4); Platelet Count 164 K/mcL (140-400); Red Blood Count 4.18 M/mcL (4.19-5.50); Red Cell Distribution Width 12.1 % (11.5-14.5); White Blood Count 6.8 K/mcL (4.3-11.1)
[2019-09-04 11:30] LABS: BUN/Creatinine Ratio 37 (6-26); Blood Urea Nitrogen 37 mg/dL (8-23); Calcium 8.8 mg/dL (8.6-10.3); Carbon Dioxide 29 mEq/L (23-29); Chloride 101 mEq/L (98-107); Glucose 102 mg/dL (70-105); Osmolality,Calculated 291 (280-300); Potassium 3.6 mEq/L (3.5-5.1); Sodium 136 mEq/L (136-145); eGFR For African Americans > 60 (> 60); eGFR For Non-African Americans > 60 (> 60)
[2019-09-04 11:33] LABS: Troponin I < 0.03 ng/mL (< 0.04)
[2019-09-04] MEDS ORDERED: Naloxone 0.4 MG/ML INJ IVP PRN (12:40)
[2019-09-04] MEDS ORDERED: Perflutren Lipid Microsphere 1.3 ML in 0.9 % Sodium Chloride 8.7 ML IVP PRN ×2 (12:41→15:36)
[2019-09-04 16:19] LABS: Estimated Average Glucose 126 mg/dl
[2019-09-04 16:29] LABS: Chol/HDL Ratio 2.7 (0-4.9); Cholesterol 111 mg/dL (< 200); HDL Cholesterol 41 mg/dL (40-59); LDL Cholesterol,Calculated 53 mg/dL (< 100); Triglycerides 83 mg/dL (< 150)
[2019-09-04] MEDS: *HR* Heparin 5,000 UNIT/ML VIAL SQ SCH (18:20)
[2019-09-04] MEDS ORDERED: cloNIDine HCL 0.1 MG TABLET GTUBE SCH (21:00)
[2019-09-05 05:28] LABS: Basophils # 0.1 K/mcL (0.0-0.2); Basophils % 0.5 %; Eosinophils # 0.4 K/mcL (0.0-0.6); Eosinophils % 4.8 %; Hematocrit 37.9 % (37.5-50.1); Immature Granulocytes % 0.3 % (0-4); Lymphocytes # 1.4 K/mcL (0.6-4.6); Lymphocytes % 15.4 %; Mean Corpuscular HGB Conc 34.3 g/dL (31.6-35.5); Mean Corpuscular Hemoglobin 31.1 pg (28.0-33.3); Mean Corpuscular Volume 90.7 fL (83.0-100.0); Mean Platelet Volume 11.3 fL (9.4-12.4); Monocytes # 0.7 K/mcL (0.0-1.3); Monocytes % 7.6 %; Neutrophils # 6.6 K/mcL (1.6-8.9); Platelet Count 154 K/mcL (140-400); Red Blood Count 4.18 M/mcL (4.19-5.50); Red Cell Distribution Width 12.2 % (11.5-14.5); Segmented Neutrophils % 71.4 %; White Blood Count 9.2 K/mcL (4.3-11.1)
[2019-09-05] MEDS: *HR* Heparin 5,000 UNIT/ML VIAL SQ SCH ×2 (05:34→16:40)
[2019-09-05 05:45] LABS: BUN/Creatinine Ratio 32 (6-26); Blood Urea Nitrogen 30 mg/dL (8-23); Calcium 9.3 mg/dL (8.6-10.3); Carbon Dioxide 31 mEq/L (23-29); Chloride 102 mEq/L (98-107); Glucose 125 mg/dL (70-105); Osmolality,Calculated 294 (280-300); Phosphorous 3.5 mg/dL (2.7-4.5); Potassium 3.5 mEq/L (3.5-5.1); Sodium 138 mEq/L (136-145); eGFR For African Americans > 60 (> 60); eGFR For Non-African Americans > 60 (> 60)
[2019-09-05] MEDS ORDERED: Aspirin 325 MG TABLET PO SCH (09:00)
[2019-09-05] MEDS ORDERED: amLODIPine 5 MG TABLET GTUBE SCH (09:00)
[2019-09-05] MEDS ORDERED: Losartan/HCTZ 50-12.5 TABLET GTUBE SCH (09:00)
[2019-09-05] MEDS ORDERED: Ascorbic Acid 500 MG TABLET PO SCH (09:00)
[2019-09-05 15:46] VITALS: BP 119/68
== END 2019-09-05 18:05 ==
LOC: 3BNU 10:57 → EMEROOARM 10:57 → SUATTDRO 13:14 → 3BNU 14:08
PROVIDERS: ADMIT Internal Medicine; ATTEND Internal Medicine

== ENCOUNTER 2020-04-18 15:05 | Inpatient (IN) ==
[2020-04-18] MEDS ORDERED: 0.9 % Sodium Chloride 1,000 ML IVC ONE (15:21)
[2020-04-18] MEDS ORDERED: 0.9 % Sodium Chloride 1,000 ML ONE (15:23)
[2020-04-18 15:45] LABS: Basophils # 0.1 K/mcL (0.0-0.2); Basophils % 0.5 %; Eosinophils # 0.5 K/mcL (0.0-0.6); Hematocrit 37.7 % (37.5-50.1); Hemoglobin 12.3 g/dL (12.9-16.9); Immature Granulocytes % 0.4 % (0-4); Lymphocytes % 15.1 %; Mean Corpuscular HGB Conc 32.6 g/dL (31.6-35.5); Mean Corpuscular Hemoglobin 30.1 pg (28.0-33.3); Mean Corpuscular Volume 92.4 fL (83.0-100.0); Mean Platelet Volume 10.3 fL (9.4-12.4); Monocytes # 1.3 K/mcL (0.0-1.3); Monocytes % 9.6 %; Neutrophils # 9.3 K/mcL (1.6-8.9); Platelet Count 190 K/mcL (140-400); Red Blood Count 4.08 M/mcL (4.19-5.50); Red Cell Distribution Width 12.5 % (11.5-14.5); Segmented Neutrophils % 70.4 %; White Blood Count 13.3 K/mcL (4.3-11.1)
[2020-04-18 15:49] LABS: INR 1.1; Prothrombin Time 12.4 Seconds (9.4-12.1)
[2020-04-18 15:52] LABS: Activated Partial Thrombo Time 29.9 Seconds (26.0-36.0)
[2020-04-18 16:01] LABS: BUN/Creatinine Ratio 26 (6-26); Blood Urea Nitrogen 31 mg/dL (8-23); Calcium 8.7 mg/dL (8.6-10.3); Carbon Dioxide 27 mEq/L (23-29); Chloride 106 mEq/L (98-107); Glucose 132 mg/dL (70-105); Osmolality,Calculated 298 (280-300); Potassium 3.3 mEq/L (3.5-5.1); Sodium 140 mEq/L (136-145); Troponin I < 0.03 ng/mL (< 0.04); eGFR For African Americans > 60 (> 60); eGFR For Non-African Americans 59 (> 60)
[2020-04-18] MEDS ORDERED: 0.9 % Sodium Chloride 250 ML ONE (16:01)
[2020-04-18] MEDS ORDERED: Isovue-370 500 ML BOTTLE IVP ONE (16:02)
[2020-04-18 21:35] LABS: Hematocrit 33.9 % (37.5-50.1); Hemoglobin 11.4 g/dL (12.9-16.9)
[2020-04-18] MEDS ORDERED: Naloxone 0.4 MG/ML INJ IVP PRN (23:45)
[2020-04-19 04:25] LABS: Basophils # 0.1 K/mcL (0.0-0.2); Basophils % 0.4 %; Eosinophils # 0.3 K/mcL (0.0-0.6); Eosinophils % 2.5 %; Hematocrit 35.5 % (37.5-50.1); Hemoglobin 11.8 g/dL (12.9-16.9); Immature Granulocytes % 0.3 % (0-4); Lymphocytes # 1.4 K/mcL (0.6-4.6); Mean Corpuscular HGB Conc 33.2 g/dL (31.6-35.5); Mean Corpuscular Volume 90.3 fL (83.0-100.0); Mean Platelet Volume 10.7 fL (9.4-12.4); Neutrophils # 9.7 K/mcL (1.6-8.9); Platelet Count 171 K/mcL (140-400); Red Blood Count 3.93 M/mcL (4.19-5.50); Red Cell Distribution Width 12.5 % (11.5-14.5); Segmented Neutrophils % 77.8 %; White Blood Count 12.4 K/mcL (4.3-11.1)
[2020-04-19 04:38] LABS: BUN/Creatinine Ratio 22 (6-26); Blood Urea Nitrogen 24 mg/dL (8-23); Calcium 8.5 mg/dL (8.6-10.3); Carbon Dioxide 30 mEq/L (23-29); Chloride 105 mEq/L (98-107); Glucose 104 mg/dL (70-105); Osmolality,Calculated 294 (280-300); Potassium 3.1 mEq/L (3.5-5.1); Sodium 140 mEq/L (136-145); eGFR For African Americans > 60 (> 60); eGFR For Non-African Americans > 60 (> 60)
[2020-04-19] MEDS ORDERED: Potassium Chloride Elixir 20 MEQ/15 ML UDC PO ONE (05:32)
[2020-04-19] MEDS ORDERED: Ondansetron 4 MG/2 ML VIAL IVP ONE (08:34)
[2020-04-19] MEDS ORDERED: Aspirin 81 MG TAB.CHEW PO SCH (09:00)
[2020-04-19] MEDS ORDERED: amLODIPine 5 MG TABLET PO SCH (09:00)
[2020-04-19] MEDS ORDERED: Naloxone 0.4 MG/ML INJ IVP PRN (09:50)
[2020-04-20 04:06] LABS: Basophils % 0.3 %; Eosinophils # 0.1 K/mcL (0.0-0.6); Eosinophils % 0.8 %; Hematocrit 34.2 % (37.5-50.1); Hemoglobin 11.8 g/dL (12.9-16.9); Immature Granulocytes % 0.5 % (0-4); Lymphocytes % 13.6 %; Mean Corpuscular HGB Conc 34.5 g/dL (31.6-35.5); Mean Corpuscular Hemoglobin 30.9 pg (28.0-33.3); Mean Corpuscular Volume 89.5 fL (83.0-100.0); Mean Platelet Volume 10.5 fL (9.4-12.4); Monocytes # 1.2 K/mcL (0.0-1.3); Monocytes % 8.4 %; Neutrophils # 11.2 K/mcL (1.6-8.9); Platelet Count 171 K/mcL (140-400); Red Blood Count 3.82 M/mcL (4.19-5.50); Red Cell Distribution Width 12.7 % (11.5-14.5); Segmented Neutrophils % 76.4 %; White Blood Count 14.6 K/mcL (4.3-11.1)
[2020-04-20 04:27] LABS: BUN/Creatinine Ratio 23 (6-26); Blood Urea Nitrogen 28 mg/dL (8-23); Calcium 8.9 mg/dL (8.6-10.3); Carbon Dioxide 27 mEq/L (23-29); Chloride 106 mEq/L (98-107); Glucose 114 mg/dL (70-105); Osmolality,Calculated 298 (280-300); Potassium 3.5 mEq/L (3.5-5.1); Sodium 141 mEq/L (136-145); eGFR For African Americans > 60 (> 60); eGFR For Non-African Americans 57 (> 60)
[2020-04-20] MEDS ORDERED: amLODIPine 5 MG TABLET PO SCH (09:00)
[2020-04-20] MEDS ORDERED: Aspirin 81 MG TAB.CHEW PO SCH (09:00)
[2020-04-20 10:00] LABS: Bilirubin,Urine Negative (Negative); Blood,Urine Large (Negative); Clarity,Urine Clear (Clear); Color,Urine Colorless (Yellow); Glucose,Urine (UA) Normal (Normal); Hyaline Casts,Urine Few per lpf (None Seen); Ketones,Urine Negative (Negative); Leukocyte Esterase,Urine Negative (Negative); Mucus,Urine Few per lpf (None-Few); Nitrite,Urine Negative (Negative); PH,Urine 6.5 pH Units (5.0-8.0); Protein,Urine 200 mg/dL (Neg-Trace); RBC,Urine TNTC per hpf (0-3); Specific Gravity,Urine 1.016 (1.010-1.025); Urobilinogen,Urine Normal (Normal)
[2020-04-20 14:25] VITALS: BP 163/86
== END 2020-04-20 16:08 | DRG 394 ==
LOC: EMEROOARM 15:05 → ICNU 15:05 → 3ANU 04-19 09:37
PROVIDERS: ADMIT Family Medicine; ATTEND Internal Medicine

== ENCOUNTER 2020-11-15 11:09 | Inpatient (IN) ==
[2020-11-15 11:56] LABS: Basophils # 0.1 K/mcL (0.0-0.2); Basophils % 0.7 %; Eosinophils # 0.3 K/mcL (0.0-0.6); Eosinophils % 2.5 %; Hemoglobin 11.3 g/dL (12.9-16.9); Immature Granulocytes % 1.1 % (0-4); Lymphocytes # 1.5 K/mcL (0.6-4.6); Lymphocytes % 13.2 %; Mean Corpuscular HGB Conc 33.2 g/dL (31.6-35.5); Mean Corpuscular Hemoglobin 29.8 pg (28.0-33.3); Mean Corpuscular Volume 89.7 fL (83.0-100.0); Mean Platelet Volume 9.7 fL (9.4-12.4); Monocytes % 8.6 %; Neutrophils # 8.2 K/mcL (1.6-8.9); Platelet Count 300 K/mcL (140-400); Red Blood Count 3.79 M/mcL (4.19-5.50); Red Cell Distribution Width 13.2 % (11.5-14.5); Segmented Neutrophils % 73.9 %; White Blood Count 11.1 K/mcL (4.3-11.1)
[2020-11-15 12:05] LABS: INR 1.1; Prothrombin Time 12.7 Seconds (9.4-12.1)
[2020-11-15 12:08] LABS: Activated Partial Thrombo Time 32.3 Seconds (26.0-36.0)
[2020-11-15 12:28] LABS: Alanine Aminotransferase 19 Units/L (7-52); Albumin 3.8 g/dL (3.5-5.7); Albumin/Globulin Ratio 1.5 (1.1-2.2); Alkaline Phosphatase 47 Units/L (34-104); Aspartate Amino Transferase 18 Units/L (13-39); BUN/Creatinine Ratio 23 (6-26); Bilirubin,Direct 0.2 mg/dL (0.0-0.2); Bilirubin,Indirect 0.9 mg/dL (0.0-1.0); Bilirubin,Total 1.1 mg/dL (0.3-1.0); Blood Urea Nitrogen 35 mg/dL (8-23); Calcium 8.9 mg/dL (8.6-10.3); Carbon Dioxide 30 mEq/L (23-29); Chloride 102 mEq/L (98-107); Creatine Kinase 103 Units/L (30-223); Ethanol < 10 mg/dL (Less than 10); Globulin 2.6 g/dL (2.4-3.5); Glucose 102 mg/dL (70-105); Osmolality,Calculated 296 (280-300); Potassium 3.3 mEq/L (3.5-5.1); Sodium 139 mEq/L (136-145); Total Protein 6.4 g/dL (6.4-8.9); Troponin I 0.27 ng/mL (< 0.04); eGFR For African Americans 54 (> 60); eGFR For Non-African Americans 44 (> 60)
[2020-11-15 12:33] LABS: Thyroid Stimulating Hormone 3.466 mcIU/mL (0.340-5.600)
[2020-11-15] MEDS ORDERED: Azithromycin 500 MG in 0.9 % Sodium Chloride 250 ML IVPB ONE (12:38)
[2020-11-15] MEDS ORDERED: cefTRIAXone 1,000 MG in 0.9 % Sodium Chloride Mini Bag 100 ML IVPB ONE (12:38)
[2020-11-15] MEDS ORDERED: Aspirin 325 MG TABLET PO ONE (12:39)
[2020-11-15] MEDS ORDERED: Isovue-370 500 ML BOTTLE IVP ONE ×2 (14:23→14:34)
[2020-11-15 15:12] LABS: Influenza A PCR Negative (Negative); Influenza B PCR Negative (Negative); Resp. Syncytial Virus PCR Positive (Negative); SARS-CoV-2 by PCR (In House) Negative (Negative)
[2020-11-15 16:02] LABS: Bacteria,Urine Few per hpf (None-Few); Bilirubin,Urine Negative (Negative); Blood,Urine Negative (Negative); Clarity,Urine Clear (Clear); Color,Urine Light-Yellow (Yellow); Glucose,Urine (UA) Normal (Normal); Ketones,Urine Negative (Negative); Leukocyte Esterase,Urine Large (Negative); Nitrite,Urine Negative (Negative); Protein,Urine Trace mg/dL (Neg-Trace); RBC,Urine 0-3 per hpf (0-3); Specific Gravity,Urine 1.022 (1.010-1.025); Urobilinogen,Urine Normal (Normal); WBC,Urine 15-30 per hpf (0-3)
[2020-11-15 16:08] LABS: Amphetamine Screen,Urine Negative ng/mL (Cutoff=1000); Barbiturate Screen,Urine Negative ng/mL (Cutoff=200); Benzodiazepines Screen,Urine Negative ng/mL (Cutoff=200); Cannabinoid Screen,Urine Negative ng/mL (Cutoff = 50); Cocaine Screen,Urine Negative ng/mL (Cutoff= 300); Opiate Screen,Urine Negative ng/mL (Cutoff=300); Phencyclidine Screen,Urine Negative ng/mL (Cutoff=25)
[2020-11-15] MEDS ORDERED: Melatonin 3 MG TABLET PO PRN (17:20)
[2020-11-15] MEDS ORDERED: Naloxone 0.4 MG/ML INJ IVP PRN (17:20)
[2020-11-15] MEDS ORDERED: Ondansetron ODT 4 MG TAB.RAPDIS SL PRN (17:20)
[2020-11-15] MEDS ORDERED: 0.9 % Sodium Chloride 1,000 ML IVC SCH (17:30)
[2020-11-15] MEDS ORDERED: Acetaminophen 325 MG TABLET PO PRN (18:17)
[2020-11-15] MEDS ORDERED: Ipratropium/Albuterol Neb 3 ML IH PRN (18:35)
[2020-11-15] MEDS: amLODIPine 5 MG TABLET PO SCH (19:48)
[2020-11-15 20:31] LABS: Alanine Aminotransferase 16 Units/L (7-52); Albumin 3.8 g/dL (3.5-5.7); Albumin/Globulin Ratio 1.7 (1.1-2.2); Alkaline Phosphatase 41 Units/L (34-104); Aspartate Amino Transferase 17 Units/L (13-39); BUN/Creatinine Ratio 23 (6-26); Blood Urea Nitrogen 29 mg/dL (8-23); Calcium 8.7 mg/dL (8.6-10.3); Carbon Dioxide 28 mEq/L (23-29); Chloride 102 mEq/L (98-107); Globulin 2.3 g/dL (2.4-3.5); Glucose 102 mg/dL (70-105); Osmolality,Calculated 292 (280-300); Potassium 3.1 mEq/L (3.5-5.1); Sodium 138 mEq/L (136-145); Total Protein 6.1 g/dL (6.4-8.9); eGFR For African Americans > 60 (> 60); eGFR For Non-African Americans 55 (> 60)
[2020-11-15 20:38] LABS: Troponin I 0.21 ng/mL (< 0.04)
[2020-11-16 02:30] LABS: Basophils # 0.1 K/mcL (0.0-0.2); Basophils % 0.5 %; Eosinophils # 0.6 K/mcL (0.0-0.6); Eosinophils % 3.5 %; Hematocrit 34.9 % (37.5-50.1); Hemoglobin 11.8 g/dL (12.9-16.9); Immature Granulocytes % 0.8 % (0-4); Lymphocytes # 1.6 K/mcL (0.6-4.6); Lymphocytes % 9.3 %; Mean Corpuscular HGB Conc 33.8 g/dL (31.6-35.5); Mean Corpuscular Hemoglobin 30.4 pg (28.0-33.3); Mean Corpuscular Volume 89.9 fL (83.0-100.0); Mean Platelet Volume 9.9 fL (9.4-12.4); Monocytes % 5.9 %; Neutrophils # 13.8 K/mcL (1.6-8.9); Platelet Count 353 K/mcL (140-400); Red Blood Count 3.88 M/mcL (4.19-5.50); Red Cell Distribution Width 13.1 % (11.5-14.5)
[2020-11-16 02:31] LABS: White Blood Count 17.2 K/mcL (4.3-11.1)
[2020-11-16 02:45] LABS: BUN/Creatinine Ratio 22 (6-26); Blood Urea Nitrogen 28 mg/dL (8-23); Calcium 8.7 mg/dL (8.6-10.3); Carbon Dioxide 27 mEq/L (23-29); Chloride 104 mEq/L (98-107); Glucose 113 mg/dL (70-105); Osmolality,Calculated 296 (280-300); Phosphorous 2.9 mg/dL (2.7-4.5); Potassium 3.2 mEq/L (3.5-5.1); Sodium 140 mEq/L (136-145); eGFR For African Americans > 60 (> 60); eGFR For Non-African Americans 55 (> 60)
[2020-11-16 02:59] LABS: INR 1.1; Prothrombin Time 11.8 Seconds (9.4-12.1)
[2020-11-16 03:00] LABS: Activated Partial Thrombo Time 31.5 Seconds (26.0-36.0)
[2020-11-16] MEDS ORDERED: Perflutren Lipid Microsphere 1.3 ML in 0.9 % Sodium Chloride 8.7 ML IVP PRN (05:30)
[2020-11-16] MEDS ORDERED: *HR* HYDROcodone/Acet 5/325 mg TABLET PO PRN (05:32)
[2020-11-16] MEDS: amLODIPine 5 MG TABLET PO SCH (09:39)
[2020-11-16] MEDS: Losartan/HCTZ 50-12.5 TABLET PO SCH (09:39)
[2020-11-16] MEDS: Multivit/Ca/Min/Fe/FA 1 TAB TABLET PO SCH (09:39)
[2020-11-16] MEDS: Aspirin 81 MG TAB.CHEW PO SCH (09:40)
[2020-11-16] MEDS: Ketoconazole 2% CRM 15 GM TUBE TP SCH (11:56)
[2020-11-16] MEDS: Nystatin POWDER 30 GM BOTTLE TP SCH (11:58)
[2020-11-17 07:44] LABS: Basophils # 0.1 K/mcL (0.0-0.2); Basophils % 0.8 %; Eosinophils # 0.6 K/mcL (0.0-0.6); Eosinophils % 5.7 %; Hematocrit 34.1 % (37.5-50.1); Hemoglobin 11.5 g/dL (12.9-16.9); Immature Granulocytes % 1.2 % (0-4); Lymphocytes # 2.3 K/mcL (0.6-4.6); Lymphocytes % 21.2 %; Mean Corpuscular HGB Conc 33.7 g/dL (31.6-35.5); Mean Corpuscular Hemoglobin 29.9 pg (28.0-33.3); Mean Corpuscular Volume 88.8 fL (83.0-100.0); Mean Platelet Volume 9.8 fL (9.4-12.4); Monocytes # 0.7 K/mcL (0.0-1.3); Monocytes % 6.9 %; Neutrophils # 6.9 K/mcL (1.6-8.9); Platelet Count 377 K/mcL (140-400); Red Blood Count 3.84 M/mcL (4.19-5.50); Segmented Neutrophils % 64.2 %; White Blood Count 10.8 K/mcL (4.3-11.1)
[2020-11-17 08:37] LABS: BUN/Creatinine Ratio 20 (6-26); Blood Urea Nitrogen 21 mg/dL (8-23); Carbon Dioxide 27 mEq/L (23-29); Chloride 102 mEq/L (98-107); Glucose 97 mg/dL (70-105); Osmolality,Calculated 287 (280-300); Potassium 3.6 mEq/L (3.5-5.1); Sodium 137 mEq/L (136-145); eGFR For African Americans > 60 (> 60); eGFR For Non-African Americans > 60 (> 60)
[2020-11-17] MEDS: amLODIPine 5 MG TABLET PO SCH (09:26)
[2020-11-17] MEDS: Multivit/Ca/Min/Fe/FA 1 TAB TABLET PO SCH (09:26)
[2020-11-17] MEDS: Aspirin 81 MG TAB.CHEW PO SCH (09:26)
[2020-11-17] MEDS: Losartan/HCTZ 50-12.5 TABLET PO SCH (09:27)
[2020-11-17] MEDS: Nystatin POWDER 30 GM BOTTLE TP SCH ×3 (09:28→22:49)
[2020-11-17] MEDS: Ketoconazole 2% CRM 15 GM TUBE TP SCH (09:28)
[2020-11-17 12:04] LABS: Basophils # 0.1 K/mcL (0.0-0.2); Basophils % 0.9 %; Eosinophils # 0.4 K/mcL (0.0-0.6); Eosinophils % 4.5 %; Hematocrit 36.9 % (37.5-50.1); Immature Granulocytes % 1.3 % (0-4); Lymphocytes # 1.4 K/mcL (0.6-4.6); Lymphocytes % 14.2 %; Mean Corpuscular HGB Conc 32.5 g/dL (31.6-35.5); Mean Corpuscular Hemoglobin 29.6 pg (28.0-33.3); Mean Corpuscular Volume 90.9 fL (83.0-100.0); Mean Platelet Volume 9.6 fL (9.4-12.4); Monocytes # 0.7 K/mcL (0.0-1.3); Monocytes % 7.6 %; Platelet Count 377 K/mcL (140-400); Red Blood Count 4.06 M/mcL (4.19-5.50); Red Cell Distribution Width 13.1 % (11.5-14.5); Segmented Neutrophils % 71.5 %; White Blood Count 9.8 K/mcL (4.3-11.1)
[2020-11-17 12:25] LABS: BUN/Creatinine Ratio 19 (6-26); Blood Urea Nitrogen 22 mg/dL (8-23); Carbon Dioxide 27 mEq/L (23-29); Chloride 101 mEq/L (98-107); Glucose 197 mg/dL (70-105); Osmolality,Calculated 293 (280-300); Potassium 3.5 mEq/L (3.5-5.1); Sodium 137 mEq/L (136-145); eGFR For African Americans > 60 (> 60); eGFR For Non-African Americans 59 (> 60)
[2020-11-17] MEDS: Apixaban 5 MG TABLET PO SCH (22:47)
[2020-11-18] MEDS: Losartan/HCTZ 50-12.5 TABLET PO SCH (08:04)
[2020-11-18] MEDS: Apixaban 5 MG TABLET PO SCH (08:04)
[2020-11-18] MEDS: Ketoconazole 2% CRM 15 GM TUBE TP SCH (08:05)
[2020-11-18] MEDS: Nystatin POWDER 30 GM BOTTLE TP SCH (08:05)
[2020-11-18] MEDS: Multivit/Ca/Min/Fe/FA 1 TAB TABLET PO SCH (08:05)
[2020-11-18] MEDS: amLODIPine 5 MG TABLET PO SCH (08:05)
[2020-11-18] MEDS: Aspirin 81 MG TAB.CHEW PO SCH (08:05)
[2020-11-18] MEDS ORDERED: Lidocaine Viscous Oral Soln 15 ML SOLUTION MM PRN (11:09)
[2020-11-18] MEDS ORDERED: 0.9 % Sodium Chloride 500 ML IVC ONE (11:09)
[2020-11-18] MEDS ORDERED: *HR* Midazolam HCl 2 MG/2 ML VIAL IVP PRN (11:13)
[2020-11-18] MEDS ORDERED: *HR* Midazolam HCl 5 MG/5 ML VIAL IVP ONE ×2 (11:27→11:28)
[2020-11-18] MEDS: *HR* FentaNYL (PF) 100 MCG/2 ML VIAL IVP PRN ×2 (11:38→11:40)
[2020-11-18 16:19] VITALS: BP 115/74; PULSE 85; TEMP 98.7; O2SAT 99
[2020-11-18 19:32] LABS: Adenovirus Not Detected (Not Detect); Bordetella Pertussis Not Detected (Not Detect); Chlamydophila pneumoniae Not Detected (Not Detect); Coronavirus 229E Not Detected (Not Detect); Coronavirus HKU1 Not Detected (Not Detect); Coronavirus NL63 Not Detected (Not Detect); Coronavirus OC43 Not Detected (Not Detect); Human Metapneumovirus Not Detected (Not Detect); Human Rhinovirus/Enterovirus Not Detected (Not Detect); Influenza A Subtype 2009 H1 Not Detected (Not Detect); Influenza B Not Detected (Not Detect); Mycoplasma pneumoniae Not Detected (Not Detect); Parainfluenza Virus 1 Not Detected (Not Detect); Parainfluenza Virus 2 Not Detected (Not Detect); Parainfluenza Virus 3 Not Detected (Not Detect); Parainfluenza Virus 4 Not Detected (Not Detect); Respiratory Syncytial Virus DETECTED (Not Detect); SARS-CoV-2 Not Detected (Not Detect)
[2020-11-18] MEDS ORDERED: Apixaban 5 MG TABLET PO SCH (21:00)
== END 2020-11-18 20:27 | DRG 64 ==
LOC: EMEROOARM 11:09 → 3NENU 11:09 → SUATTDRO 16:46 → 3NENU 17:46
PROVIDERS: ADMIT Internal Medicine; ATTEND Internal Medicine

== ENCOUNTER 2021-05-03 16:16 | Inpatient (IN) ==
[2021-05-03] MEDS ORDERED: diazePAM 10 MG/2 ML SYRINGE IM ONE (18:30)
[2021-05-03] MEDS ORDERED: 0.9 % Sodium Chloride 1,000 ML IVC ONE (19:19)
[2021-05-03 19:23] LABS: Basophils # 0.1 K/mcL (0.0-0.2); Basophils % 0.5 %; Eosinophils # 0.4 K/mcL (0.0-0.6); Eosinophils % 2.4 %; Hematocrit 43.5 % (37.5-50.1); Hemoglobin 14.3 g/dL (12.9-16.9); Immature Granulocytes % 0.5 % (0-4); Lymphocytes # 2.2 K/mcL (0.6-4.6); Lymphocytes % 14.5 %; Mean Corpuscular HGB Conc 32.9 g/dL (31.6-35.5); Mean Corpuscular Hemoglobin 29.5 pg (28.0-33.3); Mean Corpuscular Volume 89.7 fL (83.0-100.0); Mean Platelet Volume 10.3 fL (9.4-12.4); Monocytes # 1.3 K/mcL (0.0-1.3); Monocytes % 8.8 %; Neutrophils # 11.1 K/mcL (1.6-8.9); Platelet Count 262 K/mcL (140-400); Red Blood Count 4.85 M/mcL (4.19-5.50); Red Cell Distribution Width 13.1 % (11.5-14.5); Segmented Neutrophils % 73.3 %; White Blood Count 15.1 K/mcL (4.3-11.1)
[2021-05-03 19:55] LABS: Alanine Aminotransferase 12 Units/L (7-52); Albumin 4.1 g/dL (3.5-5.7); Albumin/Globulin Ratio 1.8 (1.1-2.2); Alkaline Phosphatase 60 Units/L (34-104); Aspartate Amino Transferase 14 Units/L (13-39); BUN/Creatinine Ratio 23 (6-26); Bilirubin,Total 0.4 mg/dL (0.3-1.0); Blood Urea Nitrogen 30 mg/dL (8-23); Calcium 9.3 mg/dL (8.6-10.3); Carbon Dioxide 28 mEq/L (23-29); Chloride 102 mEq/L (98-107); Globulin 2.3 g/dL (2.4-3.5); Glucose 116 mg/dL (70-105); Osmolality,Calculated 295 (280-300); Potassium 3.5 mEq/L (3.5-5.1); Sodium 139 mEq/L (136-145); Total Protein 6.4 g/dL (6.4-8.9); eGFR For African Americans > 60 (> 60); eGFR For Non-African Americans 51 (> 60)
[2021-05-03] MEDS ORDERED: Melatonin 3 MG TABLET PO PRN (22:33)
[2021-05-03] MEDS ORDERED: Naloxone 0.4 MG/ML INJ IVP PRN (22:33)
[2021-05-03] MEDS ORDERED: Ondansetron 4 MG/2 ML VIAL IVP PRN (22:33)
[2021-05-03] MEDS: 0.9 % Sodium Chloride 1,000 ML IVC SCH (22:43)
[2021-05-04] MEDS ORDERED: 0.9 % Sodium Chloride 1,000 ML IVC SCH (01:00)
[2021-05-04 02:50] LABS: Hematocrit 43.7 % (37.5-50.1); Hemoglobin 14.6 g/dL (12.9-16.9); Mean Corpuscular HGB Conc 33.4 g/dL (31.6-35.5); Mean Corpuscular Hemoglobin 29.6 pg (28.0-33.3); Mean Corpuscular Volume 88.6 fL (83.0-100.0); Mean Platelet Volume 10.6 fL (9.4-12.4); Platelet Count 250 K/mcL (140-400); Red Blood Count 4.93 M/mcL (4.19-5.50); Red Cell Distribution Width 13.2 % (11.5-14.5); White Blood Count 15.9 K/mcL (4.3-11.1)
[2021-05-04 03:00] LABS: BUN/Creatinine Ratio 24 (6-26); Blood Urea Nitrogen 29 mg/dL (8-23); Calcium 8.8 mg/dL (8.6-10.3); Carbon Dioxide 25 mEq/L (23-29); Chloride 104 mEq/L (98-107); Glucose 126 mg/dL (70-105); Osmolality,Calculated 293 (280-300); Potassium 3.7 mEq/L (3.5-5.1); Sodium 138 mEq/L (136-145); eGFR For African Americans > 60 (> 60); eGFR For Non-African Americans 57 (> 60)
[2021-05-04] MEDS: 0.9 % Sodium Chloride 1,000 ML IVC SCH ×3 (03:47→23:08)
[2021-05-04] MEDS ORDERED: *HR* Propofol 200 MG/20 ML VIAL IVP ONE (08:00)
[2021-05-04] MEDS ORDERED: *HR* Rocuronium Bromide 50 MG/5 ML VIAL ONE ×2 (08:01→10:36)
[2021-05-04] MEDS ORDERED: Lidocaine HCL 4 ML Topical Solution (Laryng-O-Jet Kit Sterile Pak) TP ONE (08:01)
[2021-05-04] MEDS ORDERED: Lidocaine -MPF 2% 5 ML VIAL ONE ×2 (08:01→08:10)
[2021-05-04] MEDS ORDERED: Ondansetron 4 MG/2 ML VIAL ONE (08:01)
[2021-05-04] MEDS ORDERED: *HR* FentaNYL (PF) 100 MCG/2 ML VIAL ONE ×2 (08:02→10:10)
[2021-05-04] MEDS ORDERED: Ketamine HCL *QUVA* 50mg (1mL) SYRINGE ONE (08:05)
[2021-05-04] MEDS ORDERED: Dexmedetomidine HCl 0 MCG/0 ML MLS IVC ONE (08:06)
[2021-05-04] MEDS ORDERED: Albumin Human 5% 12.5 GM/250 ML IV.SOLN ONE (08:06)
[2021-05-04] MEDS ORDERED: *HR* Magnesium Sulfate 1 GM/2 ML VIAL ONE (08:12)
[2021-05-04] MEDS ORDERED: *HR* HYDROMORPHONE 2 MG/ML VIAL ONE (11:40)
[2021-05-04] MEDS ORDERED: Sugammadex Sodium 200 MG/2 ML VIAL IV ONE (11:44)
[2021-05-04] MEDS ORDERED: Naloxone 0.4 MG/ML INJ IVP PRN (21:19)
[2021-05-04] MEDS ORDERED: Melatonin 3 MG TABLET PO PRN (21:19)
[2021-05-04] MEDS ORDERED: Ipratropium/Albuterol Neb 3 ML IH PRN (21:19)
[2021-05-04] MEDS: Acetaminophen IV 1,000 MG/100 ML BAG IVPB SCH (23:05)
[2021-05-04] MEDS: *HR* Heparin 5,000 UNIT/ML VIAL SQ SCH (23:06)
[2021-05-04] MEDS: cloNIDine HCL 0.1 MG TABLET PO SCH (23:06)
[2021-05-04] MEDS: Gabapentin 300 MG CAPSULE PO SCH (23:07)
[2021-05-05] MEDS: ceFAZolin 1,000 MG in Water for inj. (sterile) 10 ML IVP SCH ×4 (01:46→21:42)
[2021-05-05 02:30] LABS: Basophils % 0.1 %; Hematocrit 34.5 % (37.5-50.1); Immature Granulocytes % 0.5 % (0-4); Lymphocytes # 1.7 K/mcL (0.6-4.6); Lymphocytes % 9.8 %; Mean Corpuscular HGB Conc 33.9 g/dL (31.6-35.5); Mean Corpuscular Hemoglobin 30.1 pg (28.0-33.3); Mean Corpuscular Volume 88.7 fL (83.0-100.0); Mean Platelet Volume 10.9 fL (9.4-12.4); Monocytes # 1.8 K/mcL (0.0-1.3); Monocytes % 10.3 %; Neutrophils # 13.4 K/mcL (1.6-8.9); Platelet Count 216 K/mcL (140-400); Red Blood Count 3.89 M/mcL (4.19-5.50); Red Cell Distribution Width 13.6 % (11.5-14.5); Segmented Neutrophils % 79.3 %; White Blood Count 16.9 K/mcL (4.3-11.1)
[2021-05-05 02:45] LABS: Calcium 8.1 mg/dL (8.6-10.3); Potassium 3.9 mEq/L (3.5-5.1)
[2021-05-05 02:57] LABS: Hemoglobin 11.7 g/dL (12.9-16.9)
[2021-05-05] MEDS: Acetaminophen IV 1,000 MG/100 ML BAG IVPB SCH ×4 (03:02→21:53)
[2021-05-05] MEDS: *HR* Heparin 5,000 UNIT/ML VIAL SQ SCH ×2 (06:28→16:58)
[2021-05-05] MEDS: Pantoprazole 40 MG VIAL IVP SCH (08:38)
[2021-05-05] MEDS: 0.9 % Sodium Chloride 1,000 ML IVC SCH ×2 (08:38→17:51)
[2021-05-05] MEDS: amLODIPine 5 MG TABLET PO SCH (08:39)
[2021-05-05] MEDS: Gabapentin 300 MG CAPSULE PO SCH ×3 (08:39→21:42)
[2021-05-05] MEDS ORDERED: Losartan/HCTZ 50-12.5 TABLET PO SCH (09:00)
[2021-05-05 12:40] LABS: Hematocrit 33.8 % (37.5-50.1); Hemoglobin 11.1 g/dL (12.9-16.9)
[2021-05-05] MEDS: cloNIDine HCL 0.1 MG TABLET PO SCH (21:42)
[2021-05-06 03:56] LABS: Basophils # 0.1 K/mcL (0.0-0.2); Basophils % 0.4 %; Eosinophils # 0.3 K/mcL (0.0-0.6); Eosinophils % 1.6 %; Hematocrit 37.7 % (37.5-50.1); Hemoglobin 12.3 g/dL (12.9-16.9); Immature Granulocytes % 0.5 % (0-4); Lymphocytes # 2.1 K/mcL (0.6-4.6); Lymphocytes % 12.3 %; Mean Corpuscular HGB Conc 32.6 g/dL (31.6-35.5); Mean Corpuscular Hemoglobin 29.9 pg (28.0-33.3); Mean Corpuscular Volume 91.7 fL (83.0-100.0); Mean Platelet Volume 11.3 fL (9.4-12.4); Monocytes # 1.4 K/mcL (0.0-1.3); Monocytes % 8.3 %; Platelet Count 233 K/mcL (140-400); Red Blood Count 4.11 M/mcL (4.19-5.50); Red Cell Distribution Width 13.6 % (11.5-14.5); Segmented Neutrophils % 76.9 %; White Blood Count 16.8 K/mcL (4.3-11.1)
[2021-05-06 04:14] LABS: Calcium 8.5 mg/dL (8.6-10.3); Potassium 3.6 mEq/L (3.5-5.1)
[2021-05-06] MEDS: 0.9 % Sodium Chloride 1,000 ML IVC SCH ×3 (06:14→23:46)
[2021-05-06] MEDS: Acetaminophen IV 1,000 MG/100 ML BAG IVPB SCH ×4 (06:15→23:46)
[2021-05-06] MEDS: ceFAZolin 1,000 MG in Water for inj. (sterile) 10 ML IVP SCH ×2 (06:19→13:17)
[2021-05-06] MEDS: *HR* Heparin 5,000 UNIT/ML VIAL SQ SCH ×2 (06:20→18:30)
[2021-05-06] MEDS: amLODIPine 5 MG TABLET PO SCH (08:33)
[2021-05-06] MEDS: Pantoprazole 40 MG VIAL IVP SCH (08:34)
[2021-05-06] MEDS: Gabapentin 300 MG CAPSULE PO SCH ×4 (08:34→22:32)
[2021-05-06] MEDS: Melatonin 3 MG TABLET PO SCH ×2 (21:34→22:32)
[2021-05-06] MEDS: cloNIDine HCL 0.1 MG TABLET PO SCH ×2 (21:34→22:31)
[2021-05-06] MEDS: Ondansetron 4 MG/2 ML VIAL IVP PRN (21:43)
[2021-05-06] MEDS ORDERED: Acetaminophen IV 1,000 MG/100 ML BAG IVPB SCH (23:45)
[2021-05-07] MEDS: Acetaminophen IV 1,000 MG/100 ML BAG IVPB SCH ×4 (05:50→23:53)
[2021-05-07] MEDS: *HR* Heparin 5,000 UNIT/ML VIAL SQ SCH ×2 (06:26→17:16)
[2021-05-07] MEDS: Gabapentin 300 MG CAPSULE PO SCH ×3 (07:43→21:12)
[2021-05-07] MEDS: amLODIPine 5 MG TABLET PO SCH (07:44)
[2021-05-07 09:11] LABS: Basophils % 0.2 %; Eosinophils % 0.1 %; Hematocrit 37.8 % (37.5-50.1); Hemoglobin 12.5 g/dL (12.9-16.9); Immature Granulocytes % 0.7 % (0-4); Lymphocytes # 1.1 K/mcL (0.6-4.6); Lymphocytes % 5.8 %; Mean Corpuscular HGB Conc 33.1 g/dL (31.6-35.5); Mean Corpuscular Hemoglobin 29.8 pg (28.0-33.3); Mean Corpuscular Volume 90.2 fL (83.0-100.0); Mean Platelet Volume 10.5 fL (9.4-12.4); Monocytes # 1.1 K/mcL (0.0-1.3); Monocytes % 5.6 %; Neutrophils # 16.8 K/mcL (1.6-8.9); Platelet Count 263 K/mcL (140-400); Red Blood Count 4.19 M/mcL (4.19-5.50); Red Cell Distribution Width 13.3 % (11.5-14.5); Segmented Neutrophils % 87.6 %; White Blood Count 19.2 K/mcL (4.3-11.1)
[2021-05-07] MEDS ORDERED: Chloraseptic Spray 177 ML BOTTLE MM PRN (09:26)
[2021-05-07 09:32] LABS: Calcium 8.4 mg/dL (8.6-10.3); Potassium 3.3 mEq/L (3.5-5.1)
[2021-05-07] MEDS: Pantoprazole 40 MG VIAL IVP SCH (10:10)
[2021-05-07] MEDS: 0.9 % Sodium Chloride 1,000 ML IVC SCH ×2 (11:02→20:59)
[2021-05-07] MEDS: cloNIDine HCL 0.1 MG TABLET PO SCH (20:58)
[2021-05-07] MEDS: Melatonin 3 MG TABLET PO SCH (20:58)
[2021-05-08] MEDS: 0.9 % Sodium Chloride 1,000 ML IVC SCH ×2 (05:22→18:10)
[2021-05-08] MEDS: *HR* Heparin 5,000 UNIT/ML VIAL SQ SCH ×2 (05:23→18:11)
[2021-05-08] MEDS: Acetaminophen IV 1,000 MG/100 ML BAG IVPB SCH ×4 (05:23→23:23)
[2021-05-08] MEDS: amLODIPine 5 MG TABLET PO SCH (07:33)
[2021-05-08] MEDS: Gabapentin 300 MG CAPSULE PO SCH ×3 (07:35→20:55)
[2021-05-08] MEDS: Pantoprazole 40 MG VIAL IVP SCH (07:35)
[2021-05-08] MEDS ORDERED: levoFLOXacin 750 MG/150 ML 750 MG/150 ML BAG IVPB SCH (09:00)
[2021-05-08 09:02] LABS: Basophils % 0.3 %; Eosinophils # 0.1 K/mcL (0.0-0.6); Eosinophils % 0.8 %; Hematocrit 34.5 % (37.5-50.1); Hemoglobin 11.5 g/dL (12.9-16.9); Immature Granulocytes % 0.7 % (0-4); Lymphocytes # 0.9 K/mcL (0.6-4.6); Lymphocytes % 7.1 %; Mean Corpuscular HGB Conc 33.3 g/dL (31.6-35.5); Mean Corpuscular Hemoglobin 30.2 pg (28.0-33.3); Mean Corpuscular Volume 90.6 fL (83.0-100.0); Mean Platelet Volume 10.2 fL (9.4-12.4); Monocytes # 0.8 K/mcL (0.0-1.3); Monocytes % 6.2 %; Neutrophils # 10.9 K/mcL (1.6-8.9); Platelet Count 241 K/mcL (140-400); Red Blood Count 3.81 M/mcL (4.19-5.50); Red Cell Distribution Width 13.2 % (11.5-14.5); Segmented Neutrophils % 84.9 %; White Blood Count 12.8 K/mcL (4.3-11.1)
[2021-05-08 09:25] LABS: Alanine Aminotransferase 6 Units/L (7-52); Albumin 3.3 g/dL (3.5-5.7); Albumin/Globulin Ratio 1.5 (1.1-2.2); Alkaline Phosphatase 38 Units/L (34-104); Aspartate Amino Transferase 14 Units/L (13-39); BUN/Creatinine Ratio 36 (6-26); Bilirubin,Direct 0.1 mg/dL (0.0-0.2); Bilirubin,Indirect 0.5 mg/dL (0.0-1.0); Bilirubin,Total 0.6 mg/dL (0.3-1.0); Blood Urea Nitrogen 45 mg/dL (8-23); Calcium 8.2 mg/dL (8.6-10.3); Carbon Dioxide 26 mEq/L (23-29); Chloride 113 mEq/L (98-107); Globulin 2.2 g/dL (2.4-3.5); Glucose 116 mg/dL (70-105); Osmolality,Calculated 317 (280-300); Potassium 3.2 mEq/L (3.5-5.1); Sodium 147 mEq/L (136-145); Total Protein 5.5 g/dL (6.4-8.9); eGFR For African Americans > 60 (> 60); eGFR For Non-African Americans 54 (> 60)
[2021-05-08 13:44] LABS: Bilirubin,Urine Negative (Negative); Blood,Urine Negative (Negative); Clarity,Urine Clear (Clear); Color,Urine Light-Yellow (Yellow); Glucose,Urine (UA) Normal (Normal); Ketones,Urine 10 mg/dL (Negative); Leukocyte Esterase,Urine Negative (Negative); Nitrite,Urine Negative (Negative); Protein,Urine Trace mg/dL (Neg-Trace); Specific Gravity,Urine 1.021 (1.010-1.025); Urobilinogen,Urine Normal (Normal)
[2021-05-08 13:54] LABS: Sodium, Urine 15.4 mEq/L
[2021-05-08] MEDS: MetroNIDAZOLE 500 MG/100 ML 500 MG/100 ML BAG IVPB SCH (15:40)
[2021-05-08] MEDS: cloNIDine HCL 0.1 MG TABLET PO SCH (20:55)
[2021-05-08] MEDS: Melatonin 3 MG TABLET PO SCH (20:55)
[2021-05-09] MEDS: MetroNIDAZOLE 500 MG/100 ML 500 MG/100 ML BAG IVPB SCH ×3 (00:19→17:28)
[2021-05-09 02:44] LABS: BUN/Creatinine Ratio 34 (6-26); Blood Urea Nitrogen 41 mg/dL (8-23); Carbon Dioxide 22 mEq/L (23-29); Chloride 117 mEq/L (98-107); Glucose 82 mg/dL (70-105); Osmolality,Calculated 319 (280-300); Potassium 3.2 mEq/L (3.5-5.1); Sodium 150 mEq/L (136-145); eGFR For African Americans > 60 (> 60); eGFR For Non-African Americans 58 (> 60)
[2021-05-09 02:46] LABS: Hematocrit 30.6 % (37.5-50.1); Mean Corpuscular HGB Conc 32.7 g/dL (31.6-35.5); Mean Corpuscular Hemoglobin 30.3 pg (28.0-33.3); Mean Corpuscular Volume 92.7 fL (83.0-100.0); Mean Platelet Volume 10.7 fL (9.4-12.4); Platelet Count 242 K/mcL (140-400); Red Cell Distribution Width 13.2 % (11.5-14.5); White Blood Count 10.8 K/mcL (4.3-11.1)
[2021-05-09] MEDS: 0.9 % Sodium Chloride 1,000 ML IVC SCH (04:25)
[2021-05-09] MEDS: Acetaminophen IV 1,000 MG/100 ML BAG IVPB SCH ×3 (05:41→17:23)
[2021-05-09] MEDS: *HR* Heparin 5,000 UNIT/ML VIAL SQ SCH ×2 (05:41→17:28)
[2021-05-09] MEDS ORDERED: Ringers Solution, Lactated 500 ML IVC ONE (07:47)
[2021-05-09] MEDS: amLODIPine 5 MG TABLET PO SCH (08:20)
[2021-05-09] MEDS: Pantoprazole 40 MG VIAL IVP SCH (08:20)
[2021-05-09] MEDS: Gabapentin 300 MG CAPSULE PO SCH ×3 (08:21→21:57)
[2021-05-09] MEDS: Ringers Solution, Lactated 1,000 ML IVC SCH (11:11)
[2021-05-09] MEDS ORDERED: Lidocaine -MPF 1% 5 ML AMPUL INFILT ONE (12:59)
[2021-05-09 16:53] LABS: ABG Base Excess -2 mEq/L (-2 to 3); ABG HCO3 20 mEq/L (21-27); ABG Oxygen Saturation 90 % (95-98); ABG PCO2 27 mmHg (35-45); ABG PH 7.49 pH Units (7.32-7.45); ABG PO2 53 mmHg (85-104); ABG TCO2 21 mEq/L (20-26)
[2021-05-09] MEDS: Melatonin 3 MG TABLET PO SCH (21:57)
[2021-05-09] MEDS: cloNIDine HCL 0.1 MG TABLET PO SCH (21:57)
[2021-05-10] MEDS: Acetaminophen IV 1,000 MG/100 ML BAG IVPB SCH ×5 (00:25→22:00)
[2021-05-10] MEDS: MetroNIDAZOLE 500 MG/100 ML 500 MG/100 ML BAG IVPB SCH ×3 (00:48→16:09)
[2021-05-10] MEDS: Ringers Solution, Lactated 1,000 ML IVC SCH (03:05)
[2021-05-10] MEDS: *HR* Heparin 5,000 UNIT/ML VIAL SQ SCH ×2 (06:13→18:29)
[2021-05-10 06:40] LABS: Mean Corpuscular HGB Conc 31.4 g/dL (31.6-35.5); Mean Corpuscular Hemoglobin 29.8 pg (28.0-33.3); Mean Corpuscular Volume 94.9 fL (83.0-100.0); Mean Platelet Volume 10.1 fL (9.4-12.4); Platelet Count 277 K/mcL (140-400); Red Blood Count 3.69 M/mcL (4.19-5.50); Red Cell Distribution Width 13.5 % (11.5-14.5); White Blood Count 11.4 K/mcL (4.3-11.1)
[2021-05-10 07:00] LABS: BUN/Creatinine Ratio 32 (6-26); Blood Urea Nitrogen 41 mg/dL (8-23); Calcium 8.2 mg/dL (8.6-10.3); Carbon Dioxide 20 mEq/L (23-29); Chloride 117 mEq/L (98-107); Glucose 122 mg/dL (70-105); Osmolality,Calculated 325 (280-300); Potassium 3.4 mEq/L (3.5-5.1); Sodium 152 mEq/L (136-145); eGFR For African Americans > 60 (> 60); eGFR For Non-African Americans 52 (> 60)
[2021-05-10 08:21] LABS: Magnesium 2.3 mg/dL (1.6-2.6); Phosphorous 3.1 mg/dL (2.7-4.5); Triglycerides 108 mg/dL (< 150)
[2021-05-10] MEDS ORDERED: D5% in Water 1,000 ML IVC SCH (09:00)
[2021-05-10] MEDS ORDERED: levoFLOXacin 750 MG/150 ML 750 MG/150 ML BAG IVPB SCH (09:00)
[2021-05-10] MEDS: Pantoprazole 40 MG VIAL IVP SCH (09:27)
[2021-05-10] MEDS: amLODIPine 5 MG TABLET PO SCH (09:29)
[2021-05-10] MEDS: Gabapentin 300 MG CAPSULE PO SCH ×3 (09:30→22:01)
[2021-05-10] MEDS: Ondansetron 4 MG/2 ML VIAL IVP PRN (10:22)
[2021-05-10] MEDS ORDERED: Lidocaine HCL 4 ML Topical Solution (Laryng-O-Jet Kit Sterile Pak) TP ONE (15:15)
[2021-05-10] MEDS ORDERED: *HR* FentaNYL (PF) 100 MCG/2 ML VIAL ONE ×2 (15:15→16:49)
[2021-05-10] MEDS ORDERED: *HR* Propofol 200 MG/20 ML VIAL IVP ONE (15:16)
[2021-05-10] MEDS ORDERED: *HR* Rocuronium Bromide 50 MG/5 ML VIAL ONE (15:18)
[2021-05-10] MEDS ORDERED: Ondansetron 4 MG/2 ML VIAL ONE (15:18)
[2021-05-10] MEDS ORDERED: Lidocaine -MPF 2% 5 ML VIAL ONE (15:18)
[2021-05-10] MEDS ORDERED: *HR* Succinylcholine 200 MG/10 ML VIAL IVP ONE (15:18)
[2021-05-10] MEDS ORDERED: *HR* Vasopressin 20 UNIT/ML VIAL ONE (16:38)
[2021-05-10] MEDS ORDERED: D10% in Water 500 ML IVC PRN ×2 (17:00→19:00)
[2021-05-10] MEDS ORDERED: Clinimix E 5%-15% SOLUTION 2,000 ML IVC SCH ×2 (17:00→19:00)
[2021-05-10] MEDS ORDERED: Ondansetron 4 MG/2 ML VIAL IVP PRN (19:00)
[2021-05-10] MEDS ORDERED: Ipratropium/Albuterol Neb 3 ML IH PRN (19:00)
[2021-05-10] MEDS ORDERED: Naloxone 0.4 MG/ML INJ IVP PRN (19:00)
[2021-05-10] MEDS ORDERED: Chloraseptic Spray 177 ML BOTTLE MM PRN (19:00)
[2021-05-10] MEDS: cloNIDine HCL 0.1 MG TABLET PO SCH (22:00)
[2021-05-10] MEDS: Melatonin 3 MG TABLET PO SCH (22:00)
[2021-05-11] MEDS: MetroNIDAZOLE 500 MG/100 ML 500 MG/100 ML BAG IVPB SCH ×3 (00:05→16:12)
[2021-05-11] MEDS: Acetaminophen IV 1,000 MG/100 ML BAG IVPB SCH ×2 (02:08→08:17)
[2021-05-11] MEDS: *HR* Heparin 5,000 UNIT/ML VIAL SQ SCH ×2 (05:59→16:52)
[2021-05-11 06:59] LABS: Basophils # 0.1 K/mcL (0.0-0.2); Basophils % 0.5 %; Hematocrit 34.6 % (37.5-50.1); Hemoglobin 11.1 g/dL (12.9-16.9); Immature Granulocytes % 1.4 % (0-4); Lymphocytes # 0.9 K/mcL (0.6-4.6); Lymphocytes % 8.2 %; Mean Corpuscular HGB Conc 32.1 g/dL (31.6-35.5); Mean Corpuscular Hemoglobin 29.9 pg (28.0-33.3); Mean Corpuscular Volume 93.3 fL (83.0-100.0); Mean Platelet Volume 10.4 fL (9.4-12.4); Monocytes # 0.8 K/mcL (0.0-1.3); Monocytes % 6.6 %; Neutrophils # 9.5 K/mcL (1.6-8.9); Nucleated Red Blood Cells 0.2 /100 WBC (0); Platelet Count 285 K/mcL (140-400); Red Blood Count 3.71 M/mcL (4.19-5.50); Red Cell Distribution Width 13.9 % (11.5-14.5); Segmented Neutrophils % 83.3 %; White Blood Count 11.4 K/mcL (4.3-11.1)
[2021-05-11 07:28] LABS: Alanine Aminotransferase 9 Units/L (7-52); Albumin 2.9 g/dL (3.5-5.7); Albumin/Globulin Ratio 1.3 (1.1-2.2); Alkaline Phosphatase 38 Units/L (34-104); Aspartate Amino Transferase 17 Units/L (13-39); BUN/Creatinine Ratio 30 (6-26); Bilirubin,Total 0.4 mg/dL (0.3-1.0); Blood Urea Nitrogen 35 mg/dL (8-23); Calcium 8.1 mg/dL (8.6-10.3); Carbon Dioxide 26 mEq/L (23-29); Chloride 120 mEq/L (98-107); Globulin 2.3 g/dL (2.4-3.5); Glucose 224 mg/dL (70-105); Magnesium 2.2 mg/dL (1.6-2.6); Osmolality,Calculated 329 (280-300); Phosphorous 1.8 mg/dL (2.7-4.5); Potassium 3.5 mEq/L (3.5-5.1); Sodium 152 mEq/L (136-145); Total Protein 5.2 g/dL (6.4-8.9); eGFR For African Americans > 60 (> 60); eGFR For Non-African Americans 60 (> 60)
[2021-05-11] MEDS: Pantoprazole 40 MG VIAL IVP SCH (08:17)
[2021-05-11] MEDS: amLODIPine 5 MG TABLET PO SCH (08:18)
[2021-05-11] MEDS: Gabapentin 300 MG CAPSULE PO SCH ×3 (08:18→21:48)
[2021-05-11] MEDS ORDERED: *HR* Dextrose 50 % in Water (Syg) 50 ML SYRINGE IVP PRN (09:29)
[2021-05-11] MEDS ORDERED: D5% in Water 1,000 ML IVC PRN (09:29)
[2021-05-11] MEDS ORDERED: Dextrose 4 GM Chewable Tablets PO PRN ×2 (09:29)
[2021-05-11] MEDS ORDERED: D5% in Water 1,000 ML IVC SCH ×2 (09:30→19:21)
[2021-05-11] MEDS: Insulin LISPRO 300 UNITS/3 ML VIAL SUBQ SCH ×3 (11:26→21:46)
[2021-05-11 13:11] LABS: Adenovirus Not Detected (Not Detect); Bordetella Pertussis Not Detected (Not Detect); Chlamydophila pneumoniae Not Detected (Not Detect); Coronavirus 229E Not Detected (Not Detect); Coronavirus HKU1 Not Detected (Not Detect); Coronavirus NL63 Not Detected (Not Detect); Coronavirus OC43 Not Detected (Not Detect); Human Metapneumovirus Not Detected (Not Detect); Human Rhinovirus/Enterovirus Not Detected (Not Detect); Influenza A Subtype 2009 H1 Not Detected (Not Detect); Influenza B Not Detected (Not Detect); Mycoplasma pneumoniae Not Detected (Not Detect); Parainfluenza Virus 1 Not Detected (Not Detect); Parainfluenza Virus 2 Not Detected (Not Detect); Parainfluenza Virus 3 Not Detected (Not Detect); Parainfluenza Virus 4 Not Detected (Not Detect); Respiratory Syncytial Virus Not Detected (Not Detect); SARS-CoV-2 Not Detected (Not Detect)
[2021-05-11] MEDS ORDERED: Clinimix E 5%-15% SOLUTION 2,000 ML with MVI, adult with vitamin K 10 ML IVC SCH (17:00)
[2021-05-11 18:42] LABS: BUN/Creatinine Ratio 29 (6-26); Blood Urea Nitrogen 33 mg/dL (8-23); Calcium 7.9 mg/dL (8.6-10.3); Carbon Dioxide 25 mEq/L (23-29); Chloride 122 mEq/L (98-107); Glucose 227 mg/dL (70-105); Osmolality,Calculated 332 (280-300); Potassium 3.9 mEq/L (3.5-5.1); Sodium 154 mEq/L (136-145); eGFR For African Americans > 60 (> 60); eGFR For Non-African Americans > 60 (> 60)
[2021-05-11] MEDS: cloNIDine HCL 0.1 MG TABLET PO SCH (21:47)
[2021-05-11] MEDS: Melatonin 3 MG TABLET PO SCH (21:48)
[2021-05-12] MEDS: MetroNIDAZOLE 500 MG/100 ML 500 MG/100 ML BAG IVPB SCH ×3 (00:53→16:25)
[2021-05-12] MEDS: Insulin LISPRO 300 UNITS/3 ML VIAL SUBQ SCH ×6 (00:54→20:17)
[2021-05-12] MEDS ORDERED: Acetaminophen IV 1,000 MG/100 ML BAG IVPB ONE (03:20)
[2021-05-12] MEDS: *HR* Heparin 5,000 UNIT/ML VIAL SQ SCH (04:32)
[2021-05-12 05:45] LABS: Basophils % 0.6 %; Nucleated Red Blood Cells 0.2 /100 WBC (0)
[2021-05-12 05:46] LABS: Basophils # 0.1 K/mcL (0.0-0.2); Eosinophils # 0.2 K/mcL (0.0-0.6); Eosinophils % 1.2 %; Hemoglobin 9.7 g/dL (12.9-16.9); Immature Granulocytes % 2.8 % (0-4); Lymphocytes # 1.2 K/mcL (0.6-4.6); Lymphocytes % 9.2 %; Mean Corpuscular HGB Conc 28.5 g/dL (31.6-35.5); Mean Corpuscular Hemoglobin 30.4 pg (28.0-33.3); Mean Corpuscular Volume 106.6 fL (83.0-100.0); Mean Platelet Volume 10.7 fL (9.4-12.4); Monocytes # 0.7 K/mcL (0.0-1.3); Monocytes % 5.6 %; Neutrophils # 10.2 K/mcL (1.6-8.9); Platelet Count 260 K/mcL (140-400); Red Blood Count 3.19 M/mcL (4.19-5.50); Red Cell Distribution Width 14.3 % (11.5-14.5); Segmented Neutrophils % 80.6 %; White Blood Count 12.7 K/mcL (4.3-11.1)
[2021-05-12 06:05] LABS: Platelet Estimate Normal (Normal)
[2021-05-12] MEDS ORDERED: levoFLOXacin 750 MG/150 ML 750 MG/150 ML BAG IVPB SCH (09:00)
[2021-05-12] MEDS: Gabapentin 300 MG CAPSULE PO SCH (09:23)
[2021-05-12] MEDS: amLODIPine 5 MG TABLET PO SCH (09:23)
[2021-05-12] MEDS: Pantoprazole 40 MG VIAL IVP SCH (09:28)
[2021-05-12] MEDS ORDERED: Scopolamine Patch 1.5 MG PATCH.TD72 TD ONE (10:02)
[2021-05-12 12:11] LABS: Alanine Aminotransferase 10 Units/L (7-52); Albumin 2.7 g/dL (3.5-5.7); Albumin/Globulin Ratio 1.3 (1.1-2.2); Alkaline Phosphatase 40 Units/L (34-104); Aspartate Amino Transferase 16 Units/L (13-39); BUN/Creatinine Ratio 28 (6-26); Bilirubin,Total 0.4 mg/dL (0.3-1.0); Blood Urea Nitrogen 27 mg/dL (8-23); Calcium 7.7 mg/dL (8.6-10.3); Carbon Dioxide 26 mEq/L (23-29); Chloride 113 mEq/L (98-107); Globulin 2.1 g/dL (2.4-3.5); Glucose 400 mg/dL (70-105); Magnesium 1.9 mg/dL (1.6-2.6); Osmolality,Calculated 320 (280-300); Phosphorous 2.8 mg/dL (2.7-4.5); Potassium 3.3 mEq/L (3.5-5.1); Sodium 144 mEq/L (136-145); Total Protein 4.8 g/dL (6.4-8.9); eGFR For African Americans > 60 (> 60); eGFR For Non-African Americans > 60 (> 60)
[2021-05-12] MEDS: Ipratropium/Albuterol Neb 3 ML IH SCH ×4 (15:56→23:40)
[2021-05-12] MEDS: Chlorhexidine Rinse 15 ML MOUTHWASH MM SCH ×2 (16:25→20:33)
[2021-05-12 16:38] LABS: Hemoglobin 10.7 g/dL (12.9-16.9)
[2021-05-12] MEDS ORDERED: Clinimix E 5%-15% SOLUTION 2,000 ML, Amino Acids 10% 0 ML with MVI, adult with vitami... IVC SCH (17:00)
[2021-05-12] MEDS ORDERED: Clinimix E 5%-15% SOLUTION 2,000 ML IVC SCH (17:00)
[2021-05-12] MEDS: cloNIDine HCL 0.1 MG TABLET PO SCH (20:17)
[2021-05-13] MEDS: Insulin LISPRO 300 UNITS/3 ML VIAL SUBQ SCH ×6 (00:30→20:47)
[2021-05-13] MEDS: MetroNIDAZOLE 500 MG/100 ML 500 MG/100 ML BAG IVPB SCH ×2 (00:30→09:50)
[2021-05-13] MEDS: Ipratropium/Albuterol Neb 3 ML IH SCH ×5 (03:54→19:36)
[2021-05-13 05:24] LABS: Basophils % 0.1 %
[2021-05-13 05:28] LABS: Mean Platelet Volume 11.1 fL (9.4-12.4); Nucleated Red Blood Cells 0.3 /100 WBC (0)
[2021-05-13 05:30] LABS: Eosinophils # 0.1 K/mcL (0.0-0.6); Eosinophils % 0.9 %; Hematocrit 35.2 % (37.5-50.1); Hemoglobin 11.3 g/dL (12.9-16.9); Immature Granulocytes % 3.1 % (0-4); Immature Platelets 5.2 % (1.1-6.1); Lymphocytes # 1.3 K/mcL (0.6-4.6); Lymphocytes % 8.7 %; Mean Corpuscular HGB Conc 32.1 g/dL (31.6-35.5); Mean Corpuscular Volume 93.4 fL (83.0-100.0); Monocytes # 0.8 K/mcL (0.0-1.3); Monocytes % 5.4 %; Platelet Count 233 K/mcL (140-400); Red Blood Count 3.77 M/mcL (4.19-5.50); Red Cell Distribution Width 14.2 % (11.5-14.5); Segmented Neutrophils % 81.8 %; White Blood Count 15.1 K/mcL (4.3-11.1)
[2021-05-13 05:42] LABS: % Iron Saturation 9 % (20-55); Alanine Aminotransferase 11 Units/L (7-52); Albumin 2.6 g/dL (3.5-5.7); Alkaline Phosphatase 41 Units/L (34-104); Aspartate Amino Transferase 18 Units/L (13-39); BUN/Creatinine Ratio 31 (6-26); Bilirubin,Total 0.4 mg/dL (0.3-1.0); Blood Urea Nitrogen 31 mg/dL (8-23); Calcium 8.1 mg/dL (8.6-10.3); Carbon Dioxide 24 mEq/L (23-29); Chloride 120 mEq/L (98-107); Globulin 2.5 g/dL (2.4-3.5); Glucose 184 mg/dL (70-105); Iron 16 mcg/dL (65-175); Magnesium 2.1 mg/dL (1.6-2.6); Osmolality,Calculated 323 (280-300); Phosphorous 2.7 mg/dL (2.7-4.5); Potassium 3.5 mEq/L (3.5-5.1); Sodium 151 mEq/L (136-145); Total Protein 5.1 g/dL (6.4-8.9); Transferrin 130 mg/dL (203-362); eGFR For African Americans > 60 (> 60); eGFR For Non-African Americans > 60 (> 60)
[2021-05-13 05:51] LABS: Neutrophils # 12.4 K/mcL (1.6-8.9)
[2021-05-13 05:53] LABS: Platelet Estimate Normal (Normal)
[2021-05-13 06:00] LABS: Ferritin 237 ng/mL (20-250)
[2021-05-13] MEDS ORDERED: D5% in Water 1,000 ML IVC SCH (08:15)
[2021-05-13] MEDS ORDERED: Losartan/HCTZ 50-12.5 TABLET PO SCH (09:00)
[2021-05-13] MEDS: Chlorhexidine Rinse 15 ML MOUTHWASH MM SCH ×2 (09:39→19:36)
[2021-05-13] MEDS: amLODIPine 5 MG TABLET PO SCH (09:40)
[2021-05-13] MEDS ORDERED: Acetaminophen 325 MG TABLET PO PRN (09:44)
[2021-05-13] MEDS: Pantoprazole 40 MG VIAL IVP SCH (09:50)
[2021-05-13 10:12] LABS: Bilirubin,Urine Negative (Negative); Blood,Urine Trace (Negative); Clarity,Urine Clear (Clear); Color,Urine Light-Yellow (Yellow); Glucose,Urine (UA) Normal (Normal); Ketones,Urine Negative (Negative); Leukocyte Esterase,Urine Negative (Negative); Mucus,Urine Few per lpf (None-Few); Nitrite,Urine Negative (Negative); PH,Urine 5.5 pH Units (5.0-8.0); Protein,Urine 100 mg/dL (Neg-Trace); RBC,Urine 0-3 per hpf (0-3); Specific Gravity,Urine 1.017 (1.010-1.025); Urobilinogen,Urine Normal (Normal); WBC,Urine 0-3 per hpf (0-3)
[2021-05-13] MEDS: Piperacillin/Tazobactam 3.375 GM in 0.9 % Sodium Chloride Mini Bag 100 ML IVPB SCH ×2 (11:37→18:30)
[2021-05-13 12:53] LABS: BUN/Creatinine Ratio 30 (6-26); Blood Urea Nitrogen 32 mg/dL (8-23); Calcium 8.2 mg/dL (8.6-10.3); Carbon Dioxide 28 mEq/L (23-29); Chloride 118 mEq/L (98-107); Glucose 175 mg/dL (70-105); Osmolality,Calculated 325 (280-300); Potassium 3.3 mEq/L (3.5-5.1); Sodium 152 mEq/L (136-145); eGFR For African Americans > 60 (> 60); eGFR For Non-African Americans > 60 (> 60)
[2021-05-13] MEDS ORDERED: Acetaminophen IV 500 MG/50 ML BAG IVPB ONE (12:56)
[2021-05-13] MEDS ORDERED: Clinimix E 5%-20% SOLUTION 2,000 ML with MVI, adult with vitamin K 10 ML IVC SCH (17:00)
[2021-05-13] MEDS: cloNIDine HCL 0.1 MG TABLET PO SCH (19:37)
[2021-05-13 22:31] LABS: BUN/Creatinine Ratio 29 (6-26); Blood Urea Nitrogen 32 mg/dL (8-23); Calcium 8.2 mg/dL (8.6-10.3); Carbon Dioxide 25 mEq/L (23-29); Chloride 116 mEq/L (98-107); Glucose 221 mg/dL (70-105); Osmolality,Calculated 320 (280-300); Potassium 3.4 mEq/L (3.5-5.1); Sodium 148 mEq/L (136-145); eGFR For African Americans > 60 (> 60); eGFR For Non-African Americans > 60 (> 60)
[2021-05-13] MEDS ORDERED: 0.9 % Sodium Chloride 1,000 ML ONE (22:54)
[2021-05-13] MEDS ORDERED: FentaNYL (PF) 1,000 MCG/100 ML IV.SOLN IVC SCH (23:15)
[2021-05-13 23:27] LABS: Basophils # 0.1 K/mcL (0.0-0.2); Basophils % 0.7 %; Eosinophils # 0.1 K/mcL (0.0-0.6); Eosinophils % 0.5 %; Hematocrit 32.8 % (37.5-50.1); Immature Granulocytes % 3.2 % (0-4); Lymphocytes # 0.9 K/mcL (0.6-4.6); Lymphocytes % 4.5 %; Mean Corpuscular HGB Conc 30.5 g/dL (31.6-35.5); Mean Corpuscular Hemoglobin 29.9 pg (28.0-33.3); Mean Corpuscular Volume 98.2 fL (83.0-100.0); Mean Platelet Volume 10.5 fL (9.4-12.4); Monocytes # 0.7 K/mcL (0.0-1.3); Monocytes % 3.7 %; Neutrophils # 16.7 K/mcL (1.6-8.9); Nucleated Red Blood Cells 0.2 /100 WBC (0); Platelet Count 284 K/mcL (140-400); Red Blood Count 3.34 M/mcL (4.19-5.50); Red Cell Distribution Width 14.2 % (11.5-14.5); Segmented Neutrophils % 87.4 %; White Blood Count 19.1 K/mcL (4.3-11.1)
[2021-05-13 23:34] LABS: INR 1.4; Prothrombin Time 15.7 Seconds (9.4-12.1)
[2021-05-13 23:37] LABS: Activated Partial Thrombo Time 32.5 Seconds (26.0-36.0)
[2021-05-13] MEDS ORDERED: *HR* Rocuronium Bromide 50 MG/5 ML VIAL ONE (23:54)
[2021-05-13] MEDS ORDERED: *HR* FentaNYL (PF) 100 MCG/2 ML VIAL ONE (23:55)
[2021-05-13] MEDS ORDERED: *HR* Propofol 200 MG/20 ML VIAL IVP ONE (23:59)
[2021-05-14] MEDS ORDERED: *HR* Midazolam HCl 5 MG/5 ML VIAL IVP ONE (01:00)
[2021-05-14] MEDS ORDERED: *HR* Rocuronium Bromide 50 MG/5 ML VIAL IVP ONE (01:00)
[2021-05-14] MEDS ORDERED: *HR* Etomidate 20 MG/10 ML AMPUL IVP ONE (01:00)
[2021-05-14] MEDS ORDERED: *HR* Rocuronium Bromide 50 MG/5 ML VIAL ONE (01:10)
[2021-05-14] MEDS: Piperacillin/Tazobactam 3.375 GM in 0.9 % Sodium Chloride Mini Bag 100 ML IVPB SCH ×3 (01:27→17:30)
[2021-05-14 01:33] LABS: ABG Base Excess -2 mEq/L (-2 to 3); ABG Chloride 117 mEq/L (98-107); ABG Glucose 162 mg/dL (60-95); ABG HCO3 24 mEq/L (21-27); ABG Ionized Calcium 1.17 mmol/L (1.15-1.35); ABG Oxygen Saturation 100 % (95-98); ABG PCO2 47 mmHg (35-45); ABG PH 7.32 pH Units (7.32-7.45); ABG PO2 296 mmHg (85-104); ABG TCO2 26 mEq/L (20-26)
[2021-05-14] MEDS: Insulin LISPRO 300 UNITS/3 ML VIAL SUBQ SCH ×7 (02:51→23:27)
[2021-05-14] MEDS: Ipratropium/Albuterol Neb 3 ML IH SCH ×7 (02:51→23:48)
[2021-05-14 03:01] LABS: ABG Base Excess -5 mEq/L (-2 to 3); ABG HCO3 23 mEq/L (21-27); ABG Oxygen Saturation 87 % (95-98); ABG PCO2 58 mmHg (35-45); ABG PH 7.21 pH Units (7.32-7.45); ABG PO2 66 mmHg (85-104); ABG TCO2 25 mEq/L (20-26); Blood Gas VT 500 cc
[2021-05-14] MEDS ORDERED: Clinimix E 5%-20% SOLUTION 2,000 ML with MVI, adult with vitamin K 10 ML IVC SCH (03:14)
[2021-05-14] MEDS ORDERED: D5% in Water 1,000 ML IVC PRN (03:14)
[2021-05-14] MEDS ORDERED: D5% in Water 1,000 ML IVC SCH (03:14)
[2021-05-14] MEDS ORDERED: *HR* Dextrose 50 % in Water (Syg) 50 ML SYRINGE IVP PRN (03:14)
[2021-05-14] MEDS ORDERED: Ondansetron 4 MG/2 ML VIAL IVP PRN (03:14)
[2021-05-14] MEDS ORDERED: Dextrose 4 GM Chewable Tablets PO PRN ×2 (03:14)
[2021-05-14] MEDS ORDERED: Chloraseptic Spray 177 ML BOTTLE MM PRN (03:14)
[2021-05-14] MEDS ORDERED: D10% in Water 500 ML IVC PRN (03:14)
[2021-05-14] MEDS ORDERED: Naloxone 0.4 MG/ML INJ IVP PRN (03:14)
[2021-05-14] MEDS: Norepinephrine 4 MG/254 ML IV.SOLN IVC SCH ×2 (03:30→10:28)
[2021-05-14 04:07] LABS: ABG Base Excess -7 mEq/L (-2 to 3); ABG HCO3 22 mEq/L (21-27); ABG Oxygen Saturation 81 % (95-98); ABG PCO2 63 mmHg (35-45); ABG PH 7.16 pH Units (7.32-7.45); ABG PO2 59 mmHg (85-104); ABG TCO2 24 mEq/L (20-26); Blood Gas VT 500 cc
[2021-05-14 04:16] LABS: Basophils # 0.2 K/mcL (0.0-0.2); Basophils % 0.7 %; Eosinophils # 0.1 K/mcL (0.0-0.6); Eosinophils % 0.3 %; Hemoglobin 10.7 g/dL (12.9-16.9); Immature Granulocytes % 1.6 % (0-4); Lymphocytes # 1.7 K/mcL (0.6-4.6); Lymphocytes % 7.7 %; Mean Corpuscular HGB Conc 29.7 g/dL (31.6-35.5); Mean Corpuscular Hemoglobin 29.8 pg (28.0-33.3); Mean Corpuscular Volume 100.3 fL (83.0-100.0); Mean Platelet Volume 10.8 fL (9.4-12.4); Monocytes # 0.7 K/mcL (0.0-1.3); Monocytes % 2.9 %; Neutrophils # 19.5 K/mcL (1.6-8.9); Nucleated Red Blood Cells 0.2 /100 WBC (0); Platelet Count 310 K/mcL (140-400); Red Blood Count 3.59 M/mcL (4.19-5.50); Red Cell Distribution Width 14.3 % (11.5-14.5); Segmented Neutrophils % 86.8 %; White Blood Count 22.5 K/mcL (4.3-11.1)
[2021-05-14 04:29] LABS: Alanine Aminotransferase 12 Units/L (7-52); Albumin 2.2 g/dL (3.5-5.7); Albumin/Globulin Ratio 1.2 (1.1-2.2); Alkaline Phosphatase 38 Units/L (34-104); Aspartate Amino Transferase 15 Units/L (13-39); BUN/Creatinine Ratio 28 (6-26); Bilirubin,Total 0.4 mg/dL (0.3-1.0); Blood Urea Nitrogen 33 mg/dL (8-23); Carbon Dioxide 22 mEq/L (23-29); Chloride 120 mEq/L (98-107); Globulin 1.9 g/dL (2.4-3.5); Glucose 172 mg/dL (70-105); Magnesium 1.9 mg/dL (1.6-2.6); Osmolality,Calculated 317 (280-300); Phosphorous 5.1 mg/dL (2.7-4.5); Potassium 3.9 mEq/L (3.5-5.1); Sodium 148 mEq/L (136-145); Total Protein 4.1 g/dL (6.4-8.9); eGFR For African Americans > 60 (> 60); eGFR For Non-African Americans 59 (> 60)
[2021-05-14 04:34] LABS: VBG Ionized Calcium 1.11 mmol/L (1.15-1.35)
[2021-05-14] MEDS: Albumin Human 5% 12.5 GM/250 ML IV.SOLN IVC SCH ×2 (04:54→06:19)
[2021-05-14] MEDS: *HR* Heparin 5,000 UNIT/ML VIAL SQ SCH ×2 (04:56→17:31)
[2021-05-14 04:59] LABS: ABG Base Excess -6 mEq/L (-2 to 3); ABG HCO3 21 mEq/L (21-27); ABG Oxygen Saturation 86 % (95-98); ABG PCO2 45 mmHg (35-45); ABG PH 7.27 pH Units (7.32-7.45); ABG PO2 58 mmHg (85-104); ABG TCO2 22 mEq/L (20-26); Blood Gas VT 500 cc
[2021-05-14] MEDS: FentaNYL (PF) 1,000 MCG/100 ML IV.SOLN IVC SCH ×5 (07:00→23:37)
[2021-05-14] MEDS: Chlorhexidine Rinse 15 ML MOUTHWASH MM SCH ×2 (08:00→19:51)
[2021-05-14] MEDS: Pantoprazole 40 MG VIAL IVP SCH (08:00)
[2021-05-14] MEDS: D5% in Water 1,000 ML IVC SCH ×2 (08:01→22:12)
[2021-05-14] MEDS: amLODIPine 5 MG TABLET PO SCH (08:48)
[2021-05-14] MEDS ORDERED: Losartan/HCTZ 50-12.5 TABLET PO SCH (09:00)
[2021-05-14] MEDS: Ringers Solution, Lactated 1,000 ML IVC SCH ×2 (11:40→19:26)
[2021-05-14] MEDS ORDERED: Norepinephrine 8 MG in 0.9 % Sodium Chloride 250 ML IVC SCH (12:45)
[2021-05-14] MEDS ORDERED: Clinimix E 5%-20% SOLUTION 2,000 ML IVC SCH ×2 (17:00)
[2021-05-14] MEDS ORDERED: [UNRECOGNIZED DRUG - OTHER] IVPB SCH (17:00)
[2021-05-14] MEDS ORDERED: SODIUM ACETATE IVPB SCH (17:00)
[2021-05-14] MEDS ORDERED: CLINIMIX IVPB SCH (17:00)
[2021-05-14] MEDS ORDERED: Ringers Solution, Lactated 500 ML IVC ONE (19:23)
[2021-05-14] MEDS: cloNIDine HCL 0.1 MG TABLET PO SCH (19:51)
[2021-05-15] MEDS: Norepinephrine 8 MG/258 ML IV.SOLN IVC SCH ×3 (00:25→23:11)
[2021-05-15] MEDS: Piperacillin/Tazobactam 3.375 GM in 0.9 % Sodium Chloride Mini Bag 100 ML IVPB SCH ×3 (02:13→17:03)
[2021-05-15] MEDS: Ringers Solution, Lactated 1,000 ML IVC SCH (02:16)
[2021-05-15 03:41] LABS: Mean Corpuscular Volume 97.7 fL (83.0-100.0)
[2021-05-15] MEDS: Ipratropium/Albuterol Neb 3 ML IH SCH ×6 (03:41→23:14)
[2021-05-15 03:42] LABS: Basophils % 0.2 %; Eosinophils % 1.5 %
[2021-05-15 03:43] LABS: Basophils # 0.1 K/mcL (0.0-0.2); Eosinophils # 0.4 K/mcL (0.0-0.6); Hematocrit 25.8 % (37.5-50.1); Hemoglobin 7.9 g/dL (12.9-16.9); Immature Granulocytes % 3.6 % (0-4); Lymphocytes # 1.1 K/mcL (0.6-4.6); Lymphocytes % 4.5 %; Mean Corpuscular HGB Conc 30.6 g/dL (31.6-35.5); Mean Corpuscular Hemoglobin 29.9 pg (28.0-33.3); Mean Platelet Volume 10.6 fL (9.4-12.4); Monocytes # 0.6 K/mcL (0.0-1.3); Monocytes % 2.5 %; Neutrophils # 22.1 K/mcL (1.6-8.9); Nucleated Red Blood Cells 0.2 /100 WBC (0); Platelet Count 215 K/mcL (140-400); Red Blood Count 2.64 M/mcL (4.19-5.50); Red Cell Distribution Width 14.2 % (11.5-14.5); Segmented Neutrophils % 87.7 %; White Blood Count 25.2 K/mcL (4.3-11.1)
[2021-05-15] MEDS: Insulin LISPRO 300 UNITS/3 ML VIAL SUBQ SCH ×6 (03:54→23:09)
[2021-05-15] MEDS: FentaNYL (PF) 1,000 MCG/100 ML IV.SOLN IVC SCH ×4 (03:55→16:20)
[2021-05-15 04:31] LABS: ABG Base Excess -7 mEq/L (-2 to 3); ABG HCO3 18 mEq/L (21-27); ABG Oxygen Saturation 99 % (95-98); ABG PCO2 31 mmHg (35-45); ABG PH 7.38 pH Units (7.32-7.45); ABG PO2 127 mmHg (85-104); ABG TCO2 19 mEq/L (20-26); Blood Gas VT 500 cc
[2021-05-15 04:40] LABS: Albumin 2.1 g/dL (3.5-5.7); Albumin/Globulin Ratio 1.2 (1.1-2.2); Bilirubin,Total 0.4 mg/dL (0.3-1.0); Calcium 6.9 mg/dL (8.6-10.3); Globulin 1.7 g/dL (2.4-3.5); Magnesium 1.7 mg/dL (1.6-2.6); Potassium 3.3 mEq/L (3.5-5.1); Total Protein 3.8 g/dL (6.4-8.9)
[2021-05-15] MEDS: Calcium Gluconate 1gm/50mL 1 GM/50 ML BAG IVPB SCH ×2 (05:34→06:30)
[2021-05-15] MEDS: *HR* Heparin 5,000 UNIT/ML VIAL SQ SCH ×2 (05:34→17:02)
[2021-05-15] MEDS ORDERED: Ringers Solution, Lactated 1,000 ML IVC SCH (06:52)
[2021-05-15] MEDS: Chlorhexidine Rinse 15 ML MOUTHWASH MM SCH ×2 (07:30→20:04)
[2021-05-15] MEDS: Pantoprazole 40 MG VIAL IVP SCH (07:30)
[2021-05-15] MEDS ORDERED: Albumin 25% 25gram/100mL 25 GM/100 ML IV.SOLN IVPB ONE (07:32)
[2021-05-15] MEDS ORDERED: Furosemide 40 MG in 0.9 % Sodium Chloride 50 ML IVPB ONE (07:32)
[2021-05-15] MEDS ORDERED: Furosemide 40 MG/4 ML VIAL IVP ONE (08:30)
[2021-05-15] MEDS: amLODIPine 5 MG TABLET PO SCH (09:35)
[2021-05-15] MEDS: D5% in Water 1,000 ML IVC SCH ×2 (09:36→20:05)
[2021-05-15] MEDS: Artificial Tears SOLN 15 ML BOTTLE BOTH EYES SCH ×6 (09:55→23:01)
[2021-05-15] MEDS ORDERED: Artificial Tears SOLN 15 ML BOTTLE BOTH EYES PRN (10:08)
[2021-05-15 10:26] LABS: Sodium, Urine 17.4 mEq/L
[2021-05-15 12:01] LABS: Hematocrit 26.4 % (37.5-50.1)
[2021-05-15 12:08] LABS: Hemoglobin 8.2 g/dL (12.9-16.9)
[2021-05-15] MEDS ORDERED: *HR* Midazolam HCl 2 MG/2 ML VIAL IVP PRN (13:19)
[2021-05-15 16:50] LABS: Calcium 7.5 mg/dL (8.6-10.3); Potassium 3.8 mEq/L (3.5-5.1)
[2021-05-15] MEDS ORDERED: Clinimix E 5%-20% SOLUTION 2,000 ML IVC SCH ×2 (17:00)
[2021-05-15] MEDS ORDERED: [UNRECOGNIZED DRUG - OTHER] IVPB SCH (17:00)
[2021-05-15] MEDS ORDERED: CLINIMIX IVPB SCH (17:00)
[2021-05-15] MEDS ORDERED: SODIUM ACETATE IVPB SCH (17:00)
[2021-05-15 20:00] LABS: Hematocrit 26.3 % (37.5-50.1); Hemoglobin 8.3 g/dL (12.9-16.9)
[2021-05-15] MEDS ORDERED: FentaNYL (PF) 1,000 MCG/100 ML IV.SOLN IVC SCH (20:00)
[2021-05-15] MEDS: cloNIDine HCL 0.1 MG TABLET PO SCH (20:05)
[2021-05-15] MEDS: Insulin DETEMIR 100 UNIT/ML X5UNITS SUBQ SCH (20:05)
[2021-05-15] MEDS: FentaNYL (PF) 2,500 MCG/50 ML IV.SOLN IVC SCH (22:00)
[2021-05-16] MEDS: Piperacillin/Tazobactam 3.375 GM in 0.9 % Sodium Chloride Mini Bag 100 ML IVPB SCH ×3 (02:23→17:06)
[2021-05-16] MEDS: Ipratropium/Albuterol Neb 3 ML IH SCH ×5 (03:17→20:53)
[2021-05-16] MEDS: Artificial Tears SOLN 15 ML BOTTLE BOTH EYES SCH ×6 (03:18→23:10)
[2021-05-16 03:24] LABS: ABG Base Excess -8 mEq/L (-2 to 3); ABG HCO3 19 mEq/L (21-27); ABG Oxygen Saturation 97 % (95-98); ABG PCO2 42 mmHg (35-45); ABG PH 7.26 pH Units (7.32-7.45); ABG PO2 102 mmHg (85-104); ABG TCO2 20 mEq/L (20-26); Blood Gas VT 50 cc
[2021-05-16] MEDS: Insulin LISPRO 300 UNITS/3 ML VIAL SUBQ SCH ×7 (03:35→23:11)
[2021-05-16 03:55] LABS: Hematocrit 27.3 % (37.5-50.1); Monocytes % 3.9 %
[2021-05-16 03:56] LABS: Basophils % 0.5 %; Nucleated Red Blood Cells 0.3 /100 WBC (0)
[2021-05-16 03:57] LABS: Basophils # 0.2 K/mcL (0.0-0.2); Eosinophils # 0.9 K/mcL (0.0-0.6); Eosinophils % 2.8 %; Hemoglobin 8.5 g/dL (12.9-16.9); Immature Granulocytes % 6.1 % (0-4); Mean Corpuscular HGB Conc 31.1 g/dL (31.6-35.5); Mean Corpuscular Hemoglobin 30.4 pg (28.0-33.3); Mean Corpuscular Volume 97.5 fL (83.0-100.0); Neutrophils # 26.7 K/mcL (1.6-8.9); Platelet Count 294 K/mcL (140-400); Red Cell Distribution Width 14.3 % (11.5-14.5); Segmented Neutrophils % 83.7 %
[2021-05-16 03:58] LABS: VBG Ionized Calcium 1.15 mmol/L (1.15-1.35)
[2021-05-16 04:15] LABS: Albumin 2.4 g/dL (3.5-5.7); Albumin/Globulin Ratio 1.2 (1.1-2.2); Bilirubin,Total 0.5 mg/dL (0.3-1.0); Calcium 7.6 mg/dL (8.6-10.3); Magnesium 1.9 mg/dL (1.6-2.6); Phosphorous 3.5 mg/dL (2.7-4.5); Potassium 4.6 mEq/L (3.5-5.1); Total Protein 4.4 g/dL (6.4-8.9)
[2021-05-16 04:24] LABS: Monocytes # 1.2 K/mcL (0.0-1.3); White Blood Count 31.9 K/mcL (4.3-11.1)
[2021-05-16] MEDS: FentaNYL (PF) 2,500 MCG/50 ML IV.SOLN IVC SCH ×3 (04:24→23:36)
[2021-05-16] MEDS: *HR* Heparin 5,000 UNIT/ML VIAL SQ SCH ×2 (05:30→17:06)
[2021-05-16] MEDS: Norepinephrine 8 MG/258 ML IV.SOLN IVC SCH ×2 (08:00→17:07)
[2021-05-16] MEDS: amLODIPine 5 MG TABLET PO SCH (08:21)
[2021-05-16] MEDS: Chlorhexidine Rinse 15 ML MOUTHWASH MM SCH ×2 (08:32→20:04)
[2021-05-16] MEDS: Pantoprazole 40 MG VIAL IVP SCH (08:32)
[2021-05-16] MEDS: Albumin 25% 25gram/100mL 25 GM/100 ML IV.SOLN IVPB SCH ×2 (10:25→17:07)
[2021-05-16] MEDS: D5% in Water 1,000 ML IVC SCH (15:07)
[2021-05-16] MEDS ORDERED: Clinimix E 5%-20% SOLUTION 2,000 ML with MVI, adult with vitamin K 10 ML, ZN/CU/MN/SE... IVC SCH (17:00)
[2021-05-16] MEDS: Furosemide 20 MG/2 ML VIAL IVP SCH (20:04)
[2021-05-16] MEDS: Insulin DETEMIR 100 UNIT/ML X5UNITS SUBQ SCH (20:04)
[2021-05-17] MEDS: Ipratropium/Albuterol Neb 3 ML IH SCH ×7 (00:47→23:24)
[2021-05-17] MEDS: Piperacillin/Tazobactam 3.375 GM in 0.9 % Sodium Chloride Mini Bag 100 ML IVPB SCH ×3 (01:48→17:20)
[2021-05-17] MEDS: Albumin 25% 25gram/100mL 25 GM/100 ML IV.SOLN IVPB SCH ×3 (01:48→17:19)
[2021-05-17] MEDS: Insulin LISPRO 300 UNITS/3 ML VIAL SUBQ SCH ×5 (03:38→19:32)
[2021-05-17] MEDS: Artificial Tears SOLN 15 ML BOTTLE BOTH EYES SCH ×5 (03:38→19:31)
[2021-05-17] MEDS: Furosemide 20 MG/2 ML VIAL IVP SCH (03:41)
[2021-05-17] MEDS: Norepinephrine 8 MG/258 ML IV.SOLN IVC SCH ×2 (03:41→05:44)
[2021-05-17 04:32] LABS: Basophils # 0.1 K/mcL (0.0-0.2); Basophils % 0.2 %; Eosinophils # 0.3 K/mcL (0.0-0.6); Hematocrit 21.7 % (37.5-50.1); Hemoglobin 6.7 g/dL (12.9-16.9); Immature Granulocytes % 4.2 % (0-4); Lymphocytes # 1.3 K/mcL (0.6-4.6); Lymphocytes % 4.6 %; Mean Corpuscular HGB Conc 30.9 g/dL (31.6-35.5); Mean Corpuscular Hemoglobin 30.2 pg (28.0-33.3); Mean Corpuscular Volume 97.7 fL (83.0-100.0); Mean Platelet Volume 10.7 fL (9.4-12.4); Monocytes % 3.5 %; Neutrophils # 23.6 K/mcL (1.6-8.9); Nucleated Red Blood Cells 0.2 /100 WBC (0); Platelet Count 241 K/mcL (140-400); Red Blood Count 2.22 M/mcL (4.19-5.50); Red Cell Distribution Width 14.5 % (11.5-14.5); Segmented Neutrophils % 86.5 %; White Blood Count 27.3 K/mcL (4.3-11.1)
[2021-05-17 04:51] LABS: Albumin/Globulin Ratio 1.6 (1.1-2.2); Bilirubin,Total 0.7 mg/dL (0.3-1.0); Calcium 7.9 mg/dL (8.6-10.3); Globulin 1.9 g/dL (2.4-3.5); Phosphorous 4.3 mg/dL (2.7-4.5); Total Protein 4.9 g/dL (6.4-8.9)
[2021-05-17] MEDS ORDERED: 0.9 % Sodium Chloride 250 ML IVC SCH (05:00)
[2021-05-17 05:07] LABS: Basophilic Stippling 1+ (Not Present); Hypochromasia Present (Not Present); Platelet Estimate Normal (Normal)
[2021-05-17 05:09] LABS: ABG Base Excess -6 mEq/L (-2 to 3); ABG HCO3 20 mEq/L (21-27); ABG Oxygen Saturation 97 % (95-98); ABG PCO2 44 mmHg (35-45); ABG PH 7.26 pH Units (7.32-7.45); ABG PO2 100 mmHg (85-104); ABG TCO2 21 mEq/L (20-26); Blood Gas Modality ASSIST CONTROL; Blood Gas VT 500 cc
[2021-05-17] MEDS: *HR* Heparin 5,000 UNIT/ML VIAL SQ SCH ×2 (05:48→17:19)
[2021-05-17] MEDS: Pantoprazole 40 MG VIAL IVP SCH (07:37)
[2021-05-17] MEDS: Chlorhexidine Rinse 15 ML MOUTHWASH MM SCH ×2 (07:43→19:42)
[2021-05-17] MEDS ORDERED: Furosemide 40 MG/4 ML VIAL IVP ONE (08:51)
[2021-05-17] MEDS: FentaNYL (PF) 2,500 MCG/50 ML IV.SOLN IVC SCH ×2 (09:37→22:08)
[2021-05-17 09:47] LABS: Estimated Average Glucose 128 mg/dl; Hemoglobin A1C 6.1 %
[2021-05-17 11:55] LABS: Potassium 4.7 mEq/L (3.5-5.1)
[2021-05-17] MEDS ORDERED: 0.9 % Sodium Chloride 250 ML ONE (15:22)
[2021-05-17] MEDS ORDERED: [UNRECOGNIZED DRUG - NUTRITION] IVC SCH (17:00)
[2021-05-17] MEDS: Norepinephrine 8 MG/250 ML IV.SOLN IVC SCH (19:30)
[2021-05-17] MEDS: Insulin DETEMIR 100 UNIT/ML X5UNITS SUBQ SCH (19:43)
[2021-05-17 20:19] LABS: Hematocrit 24.4 % (37.5-50.1); Hemoglobin 7.6 g/dL (12.9-16.9)
[2021-05-18] MEDS: Artificial Tears SOLN 15 ML BOTTLE BOTH EYES SCH ×6 (00:07→19:35)
[2021-05-18] MEDS: Insulin LISPRO 300 UNITS/3 ML VIAL SUBQ SCH ×6 (00:11→21:26)
[2021-05-18] MEDS: Piperacillin/Tazobactam 3.375 GM in 0.9 % Sodium Chloride Mini Bag 100 ML IVPB SCH (02:03)
[2021-05-18] MEDS: Albumin 25% 25gram/100mL 25 GM/100 ML IV.SOLN IVPB SCH ×3 (02:04→17:29)
[2021-05-18] MEDS: Ipratropium/Albuterol Neb 3 ML IH SCH ×6 (03:47→23:11)
[2021-05-18 04:03] LABS: Basophils # 0.1 K/mcL (0.0-0.2); Basophils % 0.3 %; Eosinophils # 0.3 K/mcL (0.0-0.6); Eosinophils % 1.5 %; Hematocrit 22.4 % (37.5-50.1); Hemoglobin 7.1 g/dL (12.9-16.9); Immature Granulocytes % 3.8 % (0-4); Lymphocytes # 0.8 K/mcL (0.6-4.6); Lymphocytes % 3.9 %; Mean Corpuscular HGB Conc 31.7 g/dL (31.6-35.5); Mean Corpuscular Hemoglobin 30.6 pg (28.0-33.3); Mean Corpuscular Volume 96.6 fL (83.0-100.0); Mean Platelet Volume 10.9 fL (9.4-12.4); Monocytes % 4.8 %; Nucleated Red Blood Cells 0.2 /100 WBC (0); Platelet Count 229 K/mcL (140-400); Red Blood Count 2.32 M/mcL (4.19-5.50); Segmented Neutrophils % 85.7 %; White Blood Count 20.3 K/mcL (4.3-11.1)
[2021-05-18 04:09] LABS: Neutrophils # 17.4 K/mcL (1.6-8.9)
[2021-05-18 04:23] LABS: ABG Base Excess -7 mEq/L (-2 to 3); ABG HCO3 20 mEq/L (21-27); ABG Oxygen Saturation 97 % (95-98); ABG PCO2 45 mmHg (35-45); ABG PH 7.26 pH Units (7.32-7.45); ABG PO2 109 mmHg (85-104); ABG TCO2 21 mEq/L (20-26); Blood Gas Modality AF; Blood Gas VT 500 cc
[2021-05-18 04:51] LABS: Albumin 3.4 g/dL (3.5-5.7); Bilirubin,Total 0.8 mg/dL (0.3-1.0); Calcium 8.1 mg/dL (8.6-10.3); Globulin 1.7 g/dL (2.4-3.5); Magnesium 2.2 mg/dL (1.6-2.6); Phosphorous 6.3 mg/dL (2.7-4.5); Total Protein 5.1 g/dL (6.4-8.9)
[2021-05-18 05:05] LABS: Basophilic Stippling 1+ (Not Present); Hypochromasia Present (Not Present); Platelet Estimate Normal (Normal)
[2021-05-18] MEDS: *HR* Heparin 5,000 UNIT/ML VIAL SQ SCH ×2 (05:33→17:33)
[2021-05-18] MEDS: Pantoprazole 40 MG VIAL IVP SCH (07:56)
[2021-05-18] MEDS: Chlorhexidine Rinse 15 ML MOUTHWASH MM SCH ×2 (07:56→21:22)
[2021-05-18] MEDS ORDERED: Ertapenem 1,000 MG in 0.9 % Sodium Chloride Mini Bag 100 ML IVPB SCH (09:00)
[2021-05-18] MEDS ORDERED: cefTRIAXone 1,000 MG in 0.9 % Sodium Chloride 10 ML IVP SCH (09:00)
[2021-05-18] MEDS: cefTRIAXone 1,000 MG in 0.9 % Sodium Chloride Mini Bag 100 ML IVPB SCH (10:19)
[2021-05-18] MEDS: FentaNYL (PF) 2,500 MCG/50 ML IV.SOLN IVC SCH ×2 (10:45→23:52)
[2021-05-18] MEDS: Furosemide 40 MG/4 ML VIAL IVP SCH (12:16)
[2021-05-18] MEDS: Norepinephrine 8 MG/250 ML IV.SOLN IVC SCH (15:49)
[2021-05-18] MEDS ORDERED: Clinimix 5%-20% SOLUTION 2,000 ML with MVI, adult with vitamin K 10 ML, Sodium Phosph... IV SCH (17:00)
[2021-05-18] MEDS: Insulin DETEMIR 100 UNIT/ML X5UNITS SUBQ SCH (21:27)
[2021-05-19] MEDS: Artificial Tears SOLN 15 ML BOTTLE BOTH EYES SCH ×7 (00:46→23:11)
[2021-05-19] MEDS: Insulin LISPRO 300 UNITS/3 ML VIAL SUBQ SCH ×7 (00:48→23:13)
[2021-05-19] MEDS: Albumin 25% 25gram/100mL 25 GM/100 ML IV.SOLN IVPB SCH (02:28)
[2021-05-19] MEDS: Ipratropium/Albuterol Neb 3 ML IH SCH ×6 (03:41→22:57)
[2021-05-19 04:38] LABS: ABG Base Excess -7 mEq/L (-2 to 3); ABG HCO3 19 mEq/L (21-27); ABG Oxygen Saturation 99 % (95-98); ABG PCO2 42 mmHg (35-45); ABG PH 7.28 pH Units (7.32-7.45); ABG PO2 139 mmHg (85-104); ABG TCO2 21 mEq/L (20-26); Blood Gas VT 500 cc
[2021-05-19] MEDS: *HR* Heparin 5,000 UNIT/ML VIAL SQ SCH ×2 (05:14→18:14)
[2021-05-19 06:01] LABS: Albumin 3.4 g/dL (3.5-5.7); Albumin/Globulin Ratio 1.7 (1.1-2.2); Bilirubin,Total 0.7 mg/dL (0.3-1.0); Calcium 8.3 mg/dL (8.6-10.3); Magnesium 2.3 mg/dL (1.6-2.6); Phosphorous 7.1 mg/dL (2.7-4.5); Potassium 5.1 mEq/L (3.5-5.1); Total Protein 5.4 g/dL (6.4-8.9)
[2021-05-19] MEDS: Chlorhexidine Rinse 15 ML MOUTHWASH MM SCH ×2 (08:19→20:16)
[2021-05-19] MEDS: Furosemide 40 MG/4 ML VIAL IVP SCH (08:19)
[2021-05-19] MEDS: Pantoprazole 40 MG VIAL IVP SCH (08:20)
[2021-05-19] MEDS: cefTRIAXone 1,000 MG in 0.9 % Sodium Chloride Mini Bag 100 ML IVPB SCH (08:20)
[2021-05-19] MEDS: Bisacodyl 10 MG RECTAL SUPPOSITORY RC SCH (12:01)
[2021-05-19] MEDS: Norepinephrine 8 MG/250 ML IV.SOLN IVC SCH (12:02)
[2021-05-19] MEDS: FentaNYL (PF) 2,500 MCG/50 ML IV.SOLN IVC SCH (13:07)
[2021-05-19] MEDS ORDERED: SODIUM ACETATE IVPB SCH (17:00)
[2021-05-19] MEDS ORDERED: CLINIMIX IVPB SCH (17:00)
[2021-05-19] MEDS ORDERED: [UNRECOGNIZED DRUG - OTHER] IVPB SCH (17:00)
[2021-05-19 20:03] LABS: Hemoglobin 7.4 g/dL (12.9-16.9); Mean Corpuscular HGB Conc 32.2 g/dL (31.6-35.5); Mean Corpuscular Hemoglobin 30.2 pg (28.0-33.3); Mean Corpuscular Volume 93.9 fL (83.0-100.0); Mean Platelet Volume 10.7 fL (9.4-12.4); Nucleated Red Blood Cells 0.4 /100 WBC (0); Platelet Count 268 K/mcL (140-400); Red Blood Count 2.45 M/mcL (4.19-5.50); Red Cell Distribution Width 15.3 % (11.5-14.5); White Blood Count 11.5 K/mcL (4.3-11.1)
[2021-05-19] MEDS: Insulin DETEMIR 100 UNIT/ML X5UNITS SUBQ SCH (20:18)
[2021-05-19 20:47] LABS: Eosinophils # 0.5 K/mcL (0.0-0.6); Lymphocytes # 0.5 K/mcL (0.6-4.6); Monocytes # 0.9 K/mcL (0.0-1.3); Neutrophils # 9.7 K/mcL (1.6-8.9)
[2021-05-19 20:48] LABS: Platelet Estimate Normal (Normal)
[2021-05-20] MEDS: FentaNYL (PF) 2,500 MCG/50 ML IV.SOLN IVC SCH ×2 (01:51→15:11)
[2021-05-20] MEDS: Ipratropium/Albuterol Neb 3 ML IH SCH ×6 (03:23→23:19)
[2021-05-20 03:30] LABS: ABG Base Excess -8 mEq/L (-2 to 3); ABG HCO3 19 mEq/L (21-27); ABG Oxygen Saturation 98 % (95-98); ABG PCO2 40 mmHg (35-45); ABG PH 7.28 pH Units (7.32-7.45); ABG PO2 118 mmHg (85-104); ABG TCO2 20 mEq/L (20-26); Blood Gas VT 500 cc
[2021-05-20] MEDS: Artificial Tears SOLN 15 ML BOTTLE BOTH EYES SCH ×6 (04:24→22:56)
[2021-05-20] MEDS: Insulin LISPRO 300 UNITS/3 ML VIAL SUBQ SCH ×6 (04:25→22:57)
[2021-05-20] MEDS: *HR* Heparin 5,000 UNIT/ML VIAL SQ SCH ×2 (05:43→17:05)
[2021-05-20 07:24] LABS: Hematocrit 23.8 % (37.5-50.1); Hemoglobin 7.3 g/dL (12.9-16.9); Mean Corpuscular HGB Conc 30.7 g/dL (31.6-35.5); Mean Corpuscular Hemoglobin 29.2 pg (28.0-33.3); Mean Corpuscular Volume 95.2 fL (83.0-100.0); Mean Platelet Volume 10.6 fL (9.4-12.4); Platelet Count 296 K/mcL (140-400); Red Cell Distribution Width 15.4 % (11.5-14.5); White Blood Count 10.3 K/mcL (4.3-11.1)
[2021-05-20 08:13] LABS: Eosinophils # 0.4 K/mcL (0.0-0.6); Lymphocytes # 1.7 K/mcL (0.6-4.6); Neutrophils # 7.2 K/mcL (1.6-8.9)
[2021-05-20 08:14] LABS: Albumin 3.2 g/dL (3.5-5.7); Albumin/Globulin Ratio 1.8 (1.1-2.2); Bilirubin,Total 0.6 mg/dL (0.3-1.0); Calcium 8.5 mg/dL (8.6-10.3); Globulin 1.8 g/dL (2.4-3.5); Magnesium 2.4 mg/dL (1.6-2.6); Platelet Estimate Normal (Normal); Potassium 4.9 mEq/L (3.5-5.1)
[2021-05-20] MEDS: Chlorhexidine Rinse 15 ML MOUTHWASH MM SCH ×2 (08:20→19:49)
[2021-05-20] MEDS: Pantoprazole 40 MG VIAL IVP SCH (08:20)
[2021-05-20] MEDS: cefTRIAXone 1,000 MG in 0.9 % Sodium Chloride Mini Bag 100 ML IVPB SCH (08:20)
[2021-05-20] MEDS: Bisacodyl 10 MG RECTAL SUPPOSITORY RC SCH (08:21)
[2021-05-20] MEDS: Furosemide 40 MG/4 ML VIAL IVP SCH (08:22)
[2021-05-20] MEDS: Norepinephrine 8 MG/250 ML IV.SOLN IVC SCH (15:07)
[2021-05-20] MEDS ORDERED: Clinimix 5%-20% SOLUTION 2,000 ML with MVI, adult with vitamin K 10 ML, Sodium Acetat... IV SCH (17:00)
[2021-05-20] MEDS: Insulin DETEMIR 100 UNIT/ML X5UNITS SUBQ SCH (20:00)
[2021-05-21] MEDS: Ipratropium/Albuterol Neb 3 ML IH SCH ×6 (03:46→23:48)
[2021-05-21 03:52] LABS: ABG Base Excess -7 mEq/L (-2 to 3); ABG HCO3 19 mEq/L (21-27); ABG Oxygen Saturation 97 % (95-98); ABG PCO2 39 mmHg (35-45); ABG PH 7.29 pH Units (7.32-7.45); ABG PO2 95 mmHg (85-104); ABG TCO2 20 mEq/L (20-26); Blood Gas VT 500 cc
[2021-05-21] MEDS: Artificial Tears SOLN 15 ML BOTTLE BOTH EYES SCH ×6 (03:57→22:47)
[2021-05-21] MEDS: Insulin LISPRO 300 UNITS/3 ML VIAL SUBQ SCH ×6 (03:58→23:21)
[2021-05-21 04:05] LABS: Basophils % 0.4 %; Eosinophils # 0.3 K/mcL (0.0-0.6); Eosinophils % 2.5 %; Hematocrit 23.6 % (37.5-50.1); Hemoglobin 7.5 g/dL (12.9-16.9); Immature Granulocytes % 11.5 % (0-4); Lymphocytes % 8.7 %; Mean Corpuscular HGB Conc 31.8 g/dL (31.6-35.5); Mean Corpuscular Hemoglobin 29.9 pg (28.0-33.3); Mean Platelet Volume 10.3 fL (9.4-12.4); Monocytes # 0.8 K/mcL (0.0-1.3); Monocytes % 6.8 %; Neutrophils # 7.9 K/mcL (1.6-8.9); Platelet Count 326 K/mcL (140-400); Red Blood Count 2.51 M/mcL (4.19-5.50); Red Cell Distribution Width 15.7 % (11.5-14.5); Segmented Neutrophils % 70.1 %; White Blood Count 11.3 K/mcL (4.3-11.1)
[2021-05-21 04:12] LABS: Basophils # 0.1 K/mcL (0.0-0.2)
[2021-05-21 04:13] LABS: Albumin 2.9 g/dL (3.5-5.7); Albumin/Globulin Ratio 1.3 (1.1-2.2); Bilirubin,Total 0.6 mg/dL (0.3-1.0); Calcium 8.6 mg/dL (8.6-10.3); Globulin 2.3 g/dL (2.4-3.5); Magnesium 2.5 mg/dL (1.6-2.6); Phosphorous 6.7 mg/dL (2.7-4.5); Potassium 4.8 mEq/L (3.5-5.1); Total Protein 5.2 g/dL (6.4-8.9)
[2021-05-21 04:39] LABS: Platelet Estimate Normal (Normal)
[2021-05-21] MEDS: *HR* Heparin 5,000 UNIT/ML VIAL SQ SCH ×2 (06:06→16:33)
[2021-05-21] MEDS: FentaNYL (PF) 2,500 MCG/50 ML IV.SOLN IVC SCH (06:06)
[2021-05-21] MEDS: cefTRIAXone 1,000 MG in 0.9 % Sodium Chloride Mini Bag 100 ML IVPB SCH (07:50)
[2021-05-21] MEDS: Furosemide 40 MG/4 ML VIAL IVP SCH (07:51)
[2021-05-21] MEDS: Pantoprazole 40 MG VIAL IVP SCH (07:51)
[2021-05-21] MEDS: Bisacodyl 10 MG RECTAL SUPPOSITORY RC SCH (07:51)
[2021-05-21] MEDS: Chlorhexidine Rinse 15 ML MOUTHWASH MM SCH ×2 (07:51→20:13)
[2021-05-21] MEDS: Norepinephrine 8 MG/250 ML IV.SOLN IVC SCH (13:09)
[2021-05-21] MEDS ORDERED: SODIUM ACETATE IVPB SCH (17:00)
[2021-05-21] MEDS ORDERED: CLINIMIX IVPB SCH (17:00)
[2021-05-21] MEDS ORDERED: [UNRECOGNIZED DRUG - OTHER] IVPB SCH (17:00)
[2021-05-21] MEDS: Insulin DETEMIR 100 UNIT/ML X5UNITS SUBQ SCH (20:31)
[2021-05-22 03:42] LABS: Lymphocytes % 7.9 %; Segmented Neutrophils % 74.9 %
[2021-05-22 03:43] LABS: Basophils % 0.2 %; Eosinophils # 0.2 K/mcL (0.0-0.6); Eosinophils % 1.8 %; Hematocrit 25.3 % (37.5-50.1); Hemoglobin 6.6 g/dL (12.9-16.9); Immature Granulocytes % 8.8 % (0-4); Lymphocytes # 0.9 K/mcL (0.6-4.6); Mean Corpuscular HGB Conc 26.1 g/dL (31.6-35.5); Mean Corpuscular Hemoglobin 29.9 pg (28.0-33.3); Monocytes # 0.7 K/mcL (0.0-1.3); Monocytes % 6.4 %; Neutrophils # 8.3 K/mcL (1.6-8.9); Nucleated Red Blood Cells 0.2 /100 WBC (0); Platelet Count 303 K/mcL (140-400); Red Blood Count 2.21 M/mcL (4.19-5.50); Red Cell Distribution Width 16.4 % (11.5-14.5); White Blood Count 11.1 K/mcL (4.3-11.1)
[2021-05-22] MEDS: Ipratropium/Albuterol Neb 3 ML IH SCH ×6 (04:07→23:47)
[2021-05-22 04:14] LABS: ABG Base Excess -7 mEq/L (-2 to 3); ABG HCO3 18 mEq/L (21-27); ABG Oxygen Saturation 100 % (95-98); ABG PCO2 32 mmHg (35-45); ABG PH 7.36 pH Units (7.32-7.45); ABG PO2 169 mmHg (85-104); ABG TCO2 19 mEq/L (20-26); Blood Gas VT 500 cc
[2021-05-22] MEDS ORDERED: 0.9 % Sodium Chloride 250 ML IVC SCH (04:30)
[2021-05-22] MEDS: *HR* Heparin 5,000 UNIT/ML VIAL SQ SCH ×2 (04:39→17:04)
[2021-05-22] MEDS: Artificial Tears SOLN 15 ML BOTTLE BOTH EYES SCH ×6 (04:39→23:09)
[2021-05-22 04:52] LABS: Albumin/Globulin Ratio 1.2 (1.1-2.2); Bilirubin,Total 0.5 mg/dL (0.3-1.0); Calcium 8.8 mg/dL (8.6-10.3); Globulin 2.5 g/dL (2.4-3.5); Magnesium 2.6 mg/dL (1.6-2.6); Phosphorous 5.8 mg/dL (2.7-4.5); Potassium 3.9 mEq/L (3.5-5.1); Total Protein 5.5 g/dL (6.4-8.9)
[2021-05-22] MEDS: Insulin LISPRO 300 UNITS/3 ML VIAL SUBQ SCH ×5 (05:23→20:22)
[2021-05-22 06:20] LABS: Basophils % 0.2 %; Eosinophils # 0.2 K/mcL (0.0-0.6); Eosinophils % 1.6 %; Hematocrit 25.2 % (37.5-50.1); Immature Granulocytes % 9.5 % (0-4); Lymphocytes # 1.2 K/mcL (0.6-4.6); Lymphocytes % 8.9 %; Mean Corpuscular HGB Conc 31.7 g/dL (31.6-35.5); Mean Corpuscular Hemoglobin 29.5 pg (28.0-33.3); Mean Platelet Volume 10.9 fL (9.4-12.4); Monocytes # 0.8 K/mcL (0.0-1.3); Monocytes % 6.3 %; Neutrophils # 9.9 K/mcL (1.6-8.9); Nucleated Red Blood Cells 0.1 /100 WBC (0); Platelet Count 355 K/mcL (140-400); Red Blood Count 2.71 M/mcL (4.19-5.50); Red Cell Distribution Width 15.4 % (11.5-14.5); Segmented Neutrophils % 73.5 %; White Blood Count 13.4 K/mcL (4.3-11.1)
[2021-05-22] MEDS: Furosemide 40 MG/4 ML VIAL IVP SCH (07:25)
[2021-05-22] MEDS: Pantoprazole 40 MG VIAL IVP SCH (07:25)
[2021-05-22] MEDS: cefTRIAXone 1,000 MG in 0.9 % Sodium Chloride Mini Bag 100 ML IVPB SCH (07:25)
[2021-05-22] MEDS: Bisacodyl 10 MG RECTAL SUPPOSITORY RC SCH (07:26)
[2021-05-22] MEDS: Chlorhexidine Rinse 15 ML MOUTHWASH MM SCH ×2 (07:26→20:02)
[2021-05-22] MEDS: Dexmedetomidine HCl 400 MCG/100 ML MLS IVC SCH ×2 (11:40→21:07)
[2021-05-22] MEDS: Norepinephrine 8 MG/250 ML IV.SOLN IVC SCH (11:51)
[2021-05-22] MEDS: FentaNYL (PF) 1,000 MCG/100 ML IV.SOLN IVC SCH (16:29)
[2021-05-22] MEDS ORDERED: SODIUM ACETATE IVPB SCH (17:00)
[2021-05-22] MEDS ORDERED: CLINIMIX IVPB SCH (17:00)
[2021-05-22] MEDS ORDERED: [UNRECOGNIZED DRUG - OTHER] IVPB SCH (17:00)
[2021-05-22] MEDS: Insulin DETEMIR 100 UNIT/ML X5UNITS SUBQ SCH (20:13)
[2021-05-23] MEDS: Insulin LISPRO 300 UNITS/3 ML VIAL SUBQ SCH ×6 (00:29→20:41)
[2021-05-23] MEDS: FentaNYL (PF) 1,000 MCG/100 ML IV.SOLN IVC SCH ×2 (01:35→15:05)
[2021-05-23 04:02] LABS: Hematocrit 22.9 % (37.5-50.1); Hemoglobin 7.5 g/dL (12.9-16.9); Mean Corpuscular HGB Conc 32.8 g/dL (31.6-35.5); Mean Corpuscular Hemoglobin 30.5 pg (28.0-33.3); Mean Corpuscular Volume 93.1 fL (83.0-100.0); Mean Platelet Volume 10.2 fL (9.4-12.4); Platelet Count 355 K/mcL (140-400); Red Blood Count 2.46 M/mcL (4.19-5.50); White Blood Count 11.2 K/mcL (4.3-11.1)
[2021-05-23] MEDS: Ipratropium/Albuterol Neb 3 ML IH SCH ×6 (04:12→23:48)
[2021-05-23 04:21] LABS: ABG Base Excess -5 mEq/L (-2 to 3); ABG HCO3 19 mEq/L (21-27); ABG Oxygen Saturation 99 % (95-98); ABG PCO2 29 mmHg (35-45); ABG PH 7.42 pH Units (7.32-7.45); ABG PO2 112 mmHg (85-104); ABG TCO2 20 mEq/L (20-26); Blood Gas Modality ASSIST CONTROL; Blood Gas VT 500 cc
[2021-05-23 04:38] LABS: Alanine Aminotransferase 33 Units/L (7-52); Albumin 2.9 g/dL (3.5-5.7); Albumin/Globulin Ratio 1.2 (1.1-2.2); Alkaline Phosphatase 103 Units/L (34-104); Aspartate Amino Transferase 47 Units/L (13-39); Bilirubin,Total 0.4 mg/dL (0.3-1.0); Blood Urea Nitrogen > 130 mg/dL (8-23); Calcium 8.8 mg/dL (8.6-10.3); Carbon Dioxide 20 mEq/L (23-29); Chloride 107 mEq/L (98-107); Globulin 2.4 g/dL (2.4-3.5); Glucose 153 mg/dL (70-105); Magnesium 2.6 mg/dL (1.6-2.6); Phosphorous 5.4 mg/dL (2.7-4.5); Potassium 3.6 mEq/L (3.5-5.1); Sodium 140 mEq/L (136-145); Total Protein 5.3 g/dL (6.4-8.9); eGFR For African Americans 24 (> 60); eGFR For Non-African Americans 20 (> 60)
[2021-05-23 04:54] LABS: Lymphocytes # 0.5 K/mcL (0.6-4.6); Monocytes # 0.5 K/mcL (0.0-1.3); Neutrophils # 9.9 K/mcL (1.6-8.9); Platelet Estimate Normal (Normal)
[2021-05-23 04:55] LABS: Toxic Granulation Present (Not Present)
[2021-05-23] MEDS: Artificial Tears SOLN 15 ML BOTTLE BOTH EYES SCH ×5 (05:19→20:40)
[2021-05-23] MEDS: *HR* Heparin 5,000 UNIT/ML VIAL SQ SCH ×2 (05:24→16:57)
[2021-05-23] MEDS: Pantoprazole 40 MG VIAL IVP SCH (08:27)
[2021-05-23] MEDS: Chlorhexidine Rinse 15 ML MOUTHWASH MM SCH ×2 (08:27→20:41)
[2021-05-23] MEDS: cefTRIAXone 1,000 MG in 0.9 % Sodium Chloride Mini Bag 100 ML IVPB SCH (08:28)
[2021-05-23] MEDS: Furosemide 40 MG/4 ML VIAL IVP SCH (08:30)
[2021-05-23] MEDS: Bisacodyl 10 MG RECTAL SUPPOSITORY RC SCH (08:48)
[2021-05-23] MEDS: Norepinephrine 8 MG/250 ML IV.SOLN IVC SCH (15:12)
[2021-05-23] MEDS: Dexmedetomidine HCl 400 MCG/100 ML MLS IVC SCH (15:28)
[2021-05-23] MEDS ORDERED: Clinimix 5%-20% SOLUTION 2,000 ML with MVI, adult with vitamin K 10 ML, Sodium Acetat... IV SCH (17:00)
[2021-05-23] MEDS: Insulin DETEMIR 100 UNIT/ML X5UNITS SUBQ SCH (20:41)
[2021-05-24] MEDS: Insulin LISPRO 300 UNITS/3 ML VIAL SUBQ SCH ×7 (00:03→23:56)
[2021-05-24] MEDS: Artificial Tears SOLN 15 ML BOTTLE BOTH EYES SCH ×7 (00:03→23:57)
[2021-05-24] MEDS: Dexmedetomidine HCl 400 MCG/100 ML MLS IVC SCH ×3 (00:07→15:49)
[2021-05-24 03:07] LABS: VBG Ionized Calcium 1.32 mmol/L (1.15-1.35)
[2021-05-24] MEDS: Ipratropium/Albuterol Neb 3 ML IH SCH ×6 (04:10→23:42)
[2021-05-24] MEDS: FentaNYL (PF) 1,000 MCG/100 ML IV.SOLN IVC SCH ×3 (04:12→23:10)
[2021-05-24 04:20] LABS: ABG Base Excess -4 mEq/L (-2 to 3); ABG HCO3 20 mEq/L (21-27); ABG Oxygen Saturation 98 % (95-98); ABG PCO2 28 mmHg (35-45); ABG PH 7.45 pH Units (7.32-7.45); ABG PO2 96 mmHg (85-104); ABG TCO2 20 mEq/L (20-26); Blood Gas VT 500 cc
[2021-05-24 06:07] LABS: Basophils # 0.1 K/mcL (0.0-0.2); Basophils % 0.9 %; Eosinophils # 0.3 K/mcL (0.0-0.6); Eosinophils % 2.7 %; Hematocrit 22.2 % (37.5-50.1); Hemoglobin 7.2 g/dL (12.9-16.9); Immature Granulocytes % 4.1 % (0-4); Lymphocytes % 9.9 %; Mean Corpuscular HGB Conc 32.4 g/dL (31.6-35.5); Mean Corpuscular Hemoglobin 29.4 pg (28.0-33.3); Mean Platelet Volume 10.2 fL (9.4-12.4); Monocytes # 0.7 K/mcL (0.0-1.3); Monocytes % 6.9 %; Neutrophils # 7.2 K/mcL (1.6-8.9); Platelet Count 353 K/mcL (140-400); Red Blood Count 2.45 M/mcL (4.19-5.50); Red Cell Distribution Width 14.8 % (11.5-14.5); Segmented Neutrophils % 75.5 %; White Blood Count 9.6 K/mcL (4.3-11.1)
[2021-05-24 06:10] LABS: Mean Corpuscular Volume 90.6 fL (83.0-100.0)
[2021-05-24 06:36] LABS: Alanine Aminotransferase 55 Units/L (7-52); Albumin 2.8 g/dL (3.5-5.7); Albumin/Globulin Ratio 1.2 (1.1-2.2); Alkaline Phosphatase 100 Units/L (34-104); Aspartate Amino Transferase 58 Units/L (13-39); Bilirubin,Total 0.4 mg/dL (0.3-1.0); Blood Urea Nitrogen > 130 mg/dL (8-23); Calcium 8.7 mg/dL (8.6-10.3); Carbon Dioxide 20 mEq/L (23-29); Chloride 110 mEq/L (98-107); Globulin 2.3 g/dL (2.4-3.5); Glucose 194 mg/dL (70-105); Magnesium 2.5 mg/dL (1.6-2.6); Phosphorous 3.9 mg/dL (2.7-4.5); Sodium 143 mEq/L (136-145); Total Protein 5.1 g/dL (6.4-8.9); Triglycerides 109 mg/dL (< 150); eGFR For African Americans 29 (> 60); eGFR For Non-African Americans 24 (> 60)
[2021-05-24] MEDS: *HR* Heparin 5,000 UNIT/ML VIAL SQ SCH ×2 (07:23→17:02)
[2021-05-24] MEDS: Furosemide 40 MG/4 ML VIAL IVP SCH (08:30)
[2021-05-24] MEDS: cefTRIAXone 1,000 MG in 0.9 % Sodium Chloride Mini Bag 100 ML IVPB SCH (08:31)
[2021-05-24] MEDS: Pantoprazole 40 MG VIAL IVP SCH (08:31)
[2021-05-24] MEDS: Chlorhexidine Rinse 15 ML MOUTHWASH MM SCH ×2 (08:32→19:39)
[2021-05-24] MEDS: Bisacodyl 10 MG RECTAL SUPPOSITORY RC SCH (08:41)
[2021-05-24 11:18] LABS: Sodium, Urine 100.8 mEq/L
[2021-05-24] MEDS: Norepinephrine 8 MG/250 ML IV.SOLN IVC SCH (12:00)
[2021-05-24] MEDS ORDERED: [UNRECOGNIZED DRUG - NUTRITION] IVC SCH (17:00)
[2021-05-24] MEDS: Insulin DETEMIR 100 UNIT/ML X5UNITS SUBQ SCH (21:44)
[2021-05-25] MEDS: Dexmedetomidine HCl 400 MCG/100 ML MLS IVC SCH ×2 (00:16→07:45)
[2021-05-25] MEDS: Artificial Tears SOLN 15 ML BOTTLE BOTH EYES SCH ×5 (03:46→19:54)
[2021-05-25] MEDS: Insulin LISPRO 300 UNITS/3 ML VIAL SUBQ SCH ×3 (03:49→11:52)
[2021-05-25 03:52] LABS: Basophils # 0.1 K/mcL (0.0-0.2); Basophils % 0.6 %; Eosinophils # 0.3 K/mcL (0.0-0.6); Eosinophils % 3.2 %; Hematocrit 22.3 % (37.5-50.1); Hemoglobin 7.3 g/dL (12.9-16.9); Immature Granulocytes % 1.9 % (0-4); Lymphocytes % 10.3 %; Mean Corpuscular HGB Conc 32.7 g/dL (31.6-35.5); Mean Corpuscular Hemoglobin 30.5 pg (28.0-33.3); Mean Corpuscular Volume 93.3 fL (83.0-100.0); Mean Platelet Volume 10.2 fL (9.4-12.4); Monocytes # 0.6 K/mcL (0.0-1.3); Monocytes % 6.5 %; Neutrophils # 7.2 K/mcL (1.6-8.9); Platelet Count 383 K/mcL (140-400); Red Blood Count 2.39 M/mcL (4.19-5.50); Red Cell Distribution Width 14.8 % (11.5-14.5); Segmented Neutrophils % 77.5 %; White Blood Count 9.3 K/mcL (4.3-11.1)
[2021-05-25] MEDS: Ipratropium/Albuterol Neb 3 ML IH SCH ×3 (03:54→11:15)
[2021-05-25 04:07] LABS: VBG Ionized Calcium 1.29 mmol/L (1.15-1.35)
[2021-05-25 04:10] LABS: Albumin 2.6 g/dL (3.5-5.7); Bilirubin,Total 0.3 mg/dL (0.3-1.0); Calcium 8.6 mg/dL (8.6-10.3); Globulin 2.5 g/dL (2.4-3.5); Magnesium 2.3 mg/dL (1.6-2.6); Phosphorous 3.7 mg/dL (2.7-4.5); Potassium 2.9 mEq/L (3.5-5.1); Total Protein 5.1 g/dL (6.4-8.9)
[2021-05-25 04:34] LABS: ABG Base Excess -4 mEq/L (-2 to 3); ABG HCO3 20 mEq/L (21-27); ABG Oxygen Saturation 99 % (95-98); ABG PCO2 31 mmHg (35-45); ABG PH 7.41 pH Units (7.32-7.45); ABG PO2 113 mmHg (85-104); ABG TCO2 21 mEq/L (20-26); Blood Gas VT 500 cc
[2021-05-25] MEDS: *HR* Heparin 5,000 UNIT/ML VIAL SQ SCH (05:12)
[2021-05-25] MEDS: Chlorhexidine Rinse 15 ML MOUTHWASH MM SCH (07:32)
[2021-05-25] MEDS: Bisacodyl 10 MG RECTAL SUPPOSITORY RC SCH (08:46)
[2021-05-25] MEDS: cefTRIAXone 1,000 MG in 0.9 % Sodium Chloride Mini Bag 100 ML IVPB SCH (08:46)
[2021-05-25] MEDS: Pantoprazole 40 MG VIAL IVP SCH (08:46)
[2021-05-25] MEDS ORDERED: 0.45 % Sodium Chloride w/KCl 20 MEQ/1,000 ML MLS IVC SCH (09:30)
[2021-05-25] MEDS ORDERED: *HR* LORazepam 2 MG/ML VIAL IVP PRN (10:41)
[2021-05-25] MEDS ORDERED: *HR* FentaNYL (PF) 100 MCG/2 ML VIAL IVP PRN (10:42)
[2021-05-25] MEDS ORDERED: Glycopyrrolate 0.2 MG/ML VIAL IVP PRN (10:42)
[2021-05-25] MEDS: FentaNYL (PF) 1,000 MCG/100 ML IV.SOLN IVC SCH (11:07)
[2021-05-25] MEDS ORDERED: FentaNYL (PF) 1,000 MCG/100 ML IV.SOLN IVC SCH (16:00)
[2021-05-25] MEDS: *HR* FentaNYL (PF) 100 MCG/2 ML VIAL IVP PRN ×5 (17:26→22:59)
[2021-05-25] MEDS: *HR* LORazepam 2 MG/ML VIAL IVP PRN (23:17)
[2021-05-26] MEDS: *HR* LORazepam 2 MG/ML VIAL IVP PRN ×3 (01:20→06:01)
[2021-05-26] MEDS: *HR* FentaNYL (PF) 100 MCG/2 ML VIAL IVP PRN ×7 (01:20→22:21)
[2021-05-26] MEDS: Artificial Tears SOLN 15 ML BOTTLE BOTH EYES SCH ×6 (02:24→20:53)
[2021-05-26 06:30] VITALS: BP 161/65; PULSE 106; TEMP 99.1; O2SAT 94
[2021-05-26] MEDS: FentaNYL (PF) 1,000 MCG/100 ML IV.SOLN IVC SCH ×2 (09:44→19:48)
[2021-05-26] MEDS: Glycopyrrolate 0.2 MG/ML VIAL IVP PRN ×2 (11:56→17:10)
[2021-05-27] MEDS: Artificial Tears SOLN 15 ML BOTTLE BOTH EYES SCH (00:20)
== END 2021-05-26 23:10 | disposition expired | DRG 329 ==
LOC: 3ANU 16:16 → EMEROOARM 16:16 → 3ANU 21:56 → SUATTDRO 05-06 09:35 → ICNU 05-14 02:14 → 2ANU 05-25 16:46
PROVIDERS: ADMIT Internal Medicine; ATTEND Internal Medicine